=== PATIENT | female | born 1995 | race Caucasian/White ===

== ENCOUNTER → 2023-01-23 09:20 | Outpatient (BNVA) | payer OTHER, SELFPAY | PROVIDERS: Visit Provider Physician Assistant | DX: Z13.89 Encounter for screening for other disorder (principal) | CPT/HCPCS: 29515; 73610; 99203 ==

== ENCOUNTER → 2023-02-01 09:16 | Outpatient (BNVA) | payer OTHER, SELFPAY | PROVIDERS: Visit Provider Physician Assistant | DX: Z13.89 Encounter for screening for other disorder (principal) | CPT/HCPCS: 99214 ==

== ENCOUNTER → 2023-03-13 13:59 | Outpatient (BNVA) | payer OTHER, SELFPAY | PROVIDERS: Visit Provider Physician Assistant | DX: Z13.89 Encounter for screening for other disorder (principal) | CPT/HCPCS: 99213 ==

== ENCOUNTER 2024-02-17 14:52 | Emergency (ER) | payer BC, SELFPAY ==
--- NOTE | 2024-02-17 15:03 | ED.GENADULT ---
HPI - General Adult General Chief complaint: Animal Bite Stated complaint: Bit by cat Time Seen by Provider: 02/17/24 17:42 Source: patient Mode of arrival: ambulatory Limitations: no limitations History of Present Illness HPI narrative: Patient comes to the emergency room complaining of a cat bite versus scratch in the right quintana. Patient states that yesterday she was trying to get to her apartment, there was a feral cat that cornered the patient and attacked her without any provocation. According to the patient, the cat did not look right, looks like the cat was panting, had a bit of foam at the mouth. Patient started running, the cat chased her, patient was able to get inside of her car. The patient states that today she got a phone call from animal control, they were able to catch the cat and they will observe the cat for 48 hours and theneuthanize the animal and test for rabies. Related Data Previous Rx's ?Medication ?Instructions ?Recorded doxycycline hyclate 100 mg capsule 100 mg PO BID #19 caps 02/17/24 metronidazole 500 mg tablet 500 mg PO TID 10 days #30 tabs 02/17/24 Allergies Allergy/AdvReac Type Severity Reaction Status Date / Time amoxicillin Allergy Rash Verified 02/17/24 15:10 Review of Systems Review of Systems: Constitutional : No Weight loss, No Fever, No Chills, No Night Sweats, No Fatigue, No Malaise ENT/Mouth : No Hearing loss, No Ear Pain, No Nasal Congestion, No Sinus Pain, No Hoarseness, No sore throat, No Rhinorrhea, No Swallowing Difficulty Eyes: No Eye Pain, No Swelling, No Redness, No Foreign Body, No Discharge, No Vision Changes Cardiovascular : No Chest Pain, No SOB, No Dyspnea on Exertion, No Orthopnea, No Edema, No Palpitations Respiratory : No Cough, No Sputum, No Wheezing, No Smoke Exposure, No Dyspnea Gastrointestinal : No Nausea, No Vomiting, No Diarrhea, No Constipation, No abdominal Pain, No Hematochezia, No Melena Genitourinary : no irregular bleeding, No Dysuria, No Urinary Frequency, No Hematuria, No Urinary Incontinence, No Urgency, No Flank Pain, No Urinary Flow Changes, No Hesitancy Musculoskeletal : No joint pain, No Myalgias, No Joint Swelling Skin : In the right leg area over the quintana, there is a scratch versus superficial puncture wound Neuro : No Weakness, No Numbness, No Paresthesias, No Loss of Consciousness, No Dizziness, No Headache Psych : No Anxiety/Panic, No Depression, No SI/HI/AH/VH, No Social Issues, Heme/Lymph: No Bruising, No Bleeding,No Lymphadenopathy Endocrine : No Polyuria, No Polydipsia, No Temperature Intolerance PMFSH Social History Social History Advance Directives: No Advance Directives Information Provided: No Do you have a plan to hurt others: No Plan Physical Exam ED Vital Signs: Vital Signs - 24 hr 02/17/24 15:04 Temperature 97.0 F Pulse Rate 99 Respiratory Rate 18 Blood Pressure 146/104 H Pulse Oximetry 99 Oxygen Delivery Method Room Air BMI result Body Mass Index 20.5 Const Other: Appearance: Alert. Oriented X3. No acute distress. Eyes: Pupils equal, round and reactive to light. ENT: Pharynx normal. Neck: Normal inspection. Neck supple. No lymph nodes noted. No crepitus CVS: Normal heart rate and rhythm. Pulses normal. Normal S1 and S2 Respiratory: No respiratory distress. Breath sounds normal. No Wheezing. No rales Abdomen: Soft and nontender. No rigidity. No distention. Skin: Small scratch versus bite superficial, skin was broken, no eschar over it healing no signs of infection Extremities: No lower extremity edema. No Lacerations. No Rash Neuro: Oriented X 3. No motor deficit. No sensory deficit. Moving all extremities. No slurred speech. CN 2 through 12 grossly intact Psych: calm, cooperative, normal affect Course Course Course Narrative: This is an RME: Additional HPI, ROS, PE not included below will be deferred to primary provider. 28 yo f presents with cat bite last night from unknown cat. States wound did draw blood. States cat was acting weird prior to attack. Medical Decision Making Medical Decision Making MDM Narrative: -patient states that she is up-to-date with her tetanus shot. Patient will need antibiotics. Allergic to penicillin, patient was given the 1st dose doxycycline and metronidazole. -although the animal has been caught, the patient will not have an answer for for 48+ hours. I discussed with the patient that the cat's behavior is very concerning for rabies. Strongly recommended to get the immunization and immunoglobulin. Patient agreeable with treatment plan. Differential Diagnosis Differential Diagnoses: The differential diagnosis associated with the presentation includes (Animal scratch, animal bite, puncture wound) Discharge Plan Discharge Clinical Impression: Cat bite Patient Disposition: Home, Self-Care Instructions: Animal Bite (ED), Rabies (ED) Additional Instructions: Please follow-up with your primary care physician tomorrow. If you have any worsening or new symptoms, please return to the emergency room or call 911 Prescriptions: New metronidazole 500 mg tablet 500 mg PO TID 10 Days Qty: 30 0RF doxycycline hyclate 100 mg capsule 100 mg PO BID Qty: 19 0RF Stand Alone Forms: Work/School Release Print Language: Russian
[2024-02-17 15:04] VITALS: BP 146/104; PULSE 99; RESP 18; TEMP 36.1; O2SAT 99; BMI 20.5
[2024-02-17] MEDS: Rabies Vaccine, Human Diploid (Imovax) 1 ML VIAL IM (18:50)
[2024-02-17] MEDS: Rabies Immune Globulin/PF 300 UNIT/ML VIAL 1086 UNIT IM (18:51)
[2024-02-17] MEDS: Doxycycline Monohydrate 100 MG CAPSULE PO (18:52)
[2024-02-17] MEDS: metroNIDAZOLE 500 MG TABLET PO (18:52)
[2024-02-17] MEDS: Diphth,Pertus(ACell),Tet Adult 0.5 ML SYRINGE IM (19:09)
[2024-02-17 19:26] VITALS: BP 141/89; PULSE 96; RESP 18; TEMP 36.2; O2SAT 99
== END 2024-02-17 19:27 | disposition home or self-care (01) ==
PROVIDERS: Emergency Provider Emergency Medicine
DX: S81.851A Open bite, right lower leg, initial encounter (principal); S80.811A Abrasion, right lower leg, initial encounter; W55.01XA Bitten by cat, initial encounter; Y93.9 Activity, unspecified; Y92.9 Unspecified place or not applicable; Y99.8 Other external cause status; Z29.14 Encounter for prophylactic rabies immune globulin; Z20.3 Contact with and (suspected) exposure to rabies; Z23 Encounter for immunization
CPT/HCPCS: 90375; 90471; 90472; 90675; 90715; 96372; 99282; 99284

== ENCOUNTER 2024-03-02 14:00 | Outpatient (RCR) | payer BC, SELFPAY ==
[2024-02-20 13:53] VITALS: BMI 19.7
[2024-02-20 13:54] VITALS: BP 107/72; PULSE 85; RESP 18; TEMP 37.1; O2SAT 100
[2024-02-20] MEDS: Rabies Vaccine, Human Diploid (Imovax) 1 ML VIAL IM (14:02)
[2024-02-24 14:13] VITALS: BP 116/75; PULSE 109; RESP 12; TEMP 37.2; O2SAT 99
[2024-02-24] MEDS: Rabies Vaccine, Human Diploid (Imovax) 1 ML VIAL IM (14:26)
[2024-03-02] MEDS: Rabies Vaccine, Human Diploid (Imovax) 1 ML VIAL IM (14:06)
[2024-03-02 14:17] VITALS: BP 106/80; PULSE 80; RESP 18; TEMP 36.8; O2SAT 100
== END 2024-03-02 15:08 | disposition home or self-care (01) ==
LOC: HO.INF 14:00
PROVIDERS: Visit Provider Emergency Medicine
DX: Z20.3 Contact with and (suspected) exposure to rabies (principal); T14.8XXD Other injury of unspecified body region, subsequent encounter; W64.XXXD Exposure to other animate mechanical forces, subsequent encounter
CPT/HCPCS: 90471; 90675; 96372

== ENCOUNTER 2024-07-20 10:56 | Outpatient (REF) | payer BC, SELFPAY ==
--- NOTE | ~2024-07-20 | US_ITS ---
EXAMINATION: US , LIMITED CLINICAL INFORMATION: Dating. COMPARISON: Pelvic ultrasound 07/28/2023. TECHNIQUE: Transabdominal scanning was performed. FINDINGS: A gestational sac is present in the uterus with a yolk sac and a pole seen. heart rate was 101 bpm. [place]-rump length was 0.44 cm corresponding to a gestational age of 6 weeks 1 day with an CLARENCE of 03/14/2025. Right ovary measured 2.0 x 1.2 x 1.3 cm and appeared normal. The left ovary was not as well seen but appeared to measure 1.4 x 0.9 x 1.2 cm. A small amount of free fluid is present in the cul-de-sac. US/US OB limited IMPRESSION: A live intrauterine gestation is seen with ultrasound dates of 6 weeks 1 day with an CLARENCE of 03/14/2025. Electronically signed by: Spencer Bowen MD 07/29/2024 10:53 PM EDT
== END 2024-07-20 10:57 | disposition home or self-care (01) ==
LOC: HO.US 10:56
PROVIDERS: Visit Provider Advanced Practice Midwife
DX: Z34.90 Encounter for supervision of normal pregnancy, unspecified, unspecified trimester (principal)
CPT/HCPCS: 76815

== ENCOUNTER 2024-08-05 14:18 | Outpatient (REF) | payer BC, SELFPAY ==
--- NOTE | ~2024-08-05 | US_ITS ---
EXAMINATION: ULTRASOUND CLINICAL INFORMATION: Confirm viability LMP: 06/03/2024 Gestational age by LMP: 9 weeks 0 days CLARENCE by LMP: 03/10/2025 COMPARISON: OB ultrasound 07/20/2024 TECHNIQUE: Both transabdominal and endovaginal ultrasound was performed. FINDINGS: A gestational sac is seen along with a yolk sac and pole. heart rate of 169 bpm was noted. The crown-rump length is 1.86 cm corresponding to a gestational age of 8 weeks 3 days with an CLARENCE estimated by ultrasound of 03/14/2025. The right ovary measures 5.1 x 1.6 x 2.8 cm and appears unremarkable. Left ovary measures 4.7 x 2.8 x 3.2 cm and contains a 2.6 cm corpus luteal cyst. A small amount of free fluid is present in the cul-de-sac. US/US OB follow up IMPRESSION: Single live fetus with mean gestational age best estimated at 8 weeks 3 days with an CLARENCE of 03/14/2025 Electronically signed by: Spencer Bowen MD 08/06/2024 10:33 AM EDT
== END 2024-08-05 14:19 | disposition home or self-care (01) ==
LOC: HO.US 14:18
PROVIDERS: Visit Provider Advanced Practice Midwife
DX: Z34.90 Encounter for supervision of normal pregnancy, unspecified, unspecified trimester (principal)
CPT/HCPCS: 76816

== ENCOUNTER 2024-08-10 12:51 | Outpatient (AMB) | payer BC, SELFPAY ==
[2024-08-10 13:01] VITALS: BMI 22.0
--- NOTE | 2024-08-10 13:01 | A.OFFVISPN_ITS ---
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 [place] Required: No Allergies amoxicillin Allergy (Verified 08/10/24 13:02) Rash Medication List - Last Reconciled 08/10/24 by Alyssa Goddard LPN doxylamine succinate (Unisom (doxylamine)) 25 mg PO BEDTIME 30 days pyridoxine (vitamin B6) 25 mg PO TID 30 days Is last menstrual period known: Yes Last menstrual period: 06/03/24 Post menopausal: No Patient : Yes Do you need a note to return to daycare/school/sports/work: No PFSH Medical History (Updated 08/10/24 @ 14:15 by Alyssa Goddard LPN) Animal bite Surgical History (Updated 08/10/24 @ 14:15 by Alyssa Goddard LPN) Ovarian torsion [place] teeth removed Family History (Updated 08/10/24 @ 14:18 by Alyssa Goddard LPN) Mother Hx of malignant neoplasm of female breast Father Hx of deep venous thrombosis Brother Anxiety and depression Sister Anxiety and depression Social History Patient : Yes Female Reproductive History Menstrual Age of Menarche: 15 Duration of menses: 3-5 days Date of last menstrual period: 06/03/24 control method: none Total pregnancies: 3 Full term: 1 Premature: 0 Number of Living Children: 1 Ab induced: 0 Ab spontaneous: 1 Ectopics: 0 Multiple births: 0 History of 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 Date GA/Weeks Outcome Route Wt Inf Gender Labor Gena Anesthesia Location Provider Complicate 10/03/14 39 live - full term vaginal delivery 7 lb 13 oz [facility] 07[facility] 8 spontaneous Education First Trimester Education Checklist Plans/Education - by Trimester Counseled: Yes HIV and other routine tests: discussed Infectious disease exposure: chicken pox immunity discussed, hepatitis risk discussed and tuberculosis exposure discussed Influenza vaccine: discussed Nutrition and weight gain counseling: special diet: discussed Sexual activity: discussed Exercise: discussed Tobacco use: No Tobacco (Ask, Advise, Assess, Assist, and Arrange): discussed Smoking counseling: discussed Alcohol use: No Alcohol (Ask, Advise, Assess, Assist, and Arrange): discussed Use of any medications (including supplements, vitamins, herbs, or OTC drugs): discussed Substance use: No Environmental/home/work hazards: discussed Domestic violence: discussed Travel: discussed Seatbelt use: discussed Toxoplasmosis precautions (cats/raw meat): discussed Childbirth education/discussion: symptoms education/discussion and group B strep education/discussion Risk factors identified by history: discussed Testing education: cystic fibrosis testing education done and group B strep education danger signs: Yes education packet: Child education class information, symptoms, vitamins and iron, diet and weight gain, fish and mercury intake, listeriosis prevention, caffeine use, eating disorder history, exercise and activity, work issues, sexual activity, x-ray exposure, medication use, toxoplasmosis precautions, sauna/hot tub use, dental care and HIV education and counseling Mental health: discussed Anticipated course of care: discussed Indications for ultrasound: discussed Health center information: nature of practice discussed, personnel described, visit schedule reviewed, no show policy reviewed, ultrasounds policy reviewed, coverage 24 hours a day, participation of father in care and office visits and signs of miscarriage reviewed Questionnaire History History Mother's age: 29 Hx Total # of Abortions (Spontaneous & Elective): 1 : 3 Para: 1 Marital status: unmarried, living together Visit CLARENCE Calculator Estimated Delivery Date Method Current WG Current Estimate 03/14/25 Ultrasound #1 9w 2d Other Estimates 03/10/25 LMP (Certain) 9w 6d Expected Delivery Route/Plan vaginal delivery Specific Issues/Plans Anxiety OB Visit Log Initial Weight: 120 lb Date -?-?-?-?-?-?-?-?-?-?-?-?- EGA Weight Gest Week Fundal Ht Present FHR move Efface % Edema BP PrePreg We Weight GTT -?-?-?-?-?-?-?-?-?-?-?-?- Glucose LV Protein Blood Type 08/10/24 -?-?-?-?-?-?-?-?-?-?-?-?- 9w 1d 128 lb 4 oz (+8 lb 4 oz) 1 28 lb 4 oz -?-?-?-?-?-?-?-?-?-?-?-?- Notes Visit Date: 08/10/24 Last Updated by: Alyssa Goddard LPN Cindy is here today for her Nurse intake. LMP 06/03/24 CLARENCE 03/10/25. CLARENCE by U/S on 08/05/24= 03/14/25. Pt is a , Pt was a surrogate, but miscarried at 8 wks. Current partner is FOB #2. Pt is employed at [employer] [place] and also going to school for [employer]. She has been having issues with nausea, but is keeping well hydrated and eating more frequent, smaller amounts of food. Pt denies any use of MJ or illecits. Discussed labs including CF testing and UDS. Discussed NT u/s at [facility] [place] [place] and orders placed. Discussed Panorama testing, and pt will call Ins co to confirm coverage. Pts first was wnl, and had vaginal delivery with Epidural. Pt aware her u/s and delivery will be at [facility] [place] [place]. pt denies any family Hx of diabetes. Informed pt we recommend flu vaccine in and pt accepts. Discussed how to reach MD after hours and to be seen in [facility] for any OB issues. OB PE scheduled for 08/12/24. Initial Infection History & Risk Profile History of STDs: Yes HIV risk evaluation: low risk Hepatitis B risk evaluation: low risk Patient or partner has history of Genital Herpes: No Varicella/chicken pox status: immunized Genetic Screening & Histologist Symptoms since LMP: Nausea, fatigue, breast tenderness. Genetic Screening/Teratology Counseling - Includes patient, baby's father, or anyone in either family with: 1. Patient's age 35 years or older as of estimated date of delivery: No 2. Thalassemia (Estonian, Mosotho, Mediterranean, or Background); MCV less than 80: Yes (Pt has some Estonian background.) 3. Neural Tube Defect (Meningomyelocele, Spina Bifida, or Anencephaly): No 4. Congenital Heart Defect: No 5. Down Syndrome: No 6. Abbe-Sachs (Ashkenazi Bahai, Cajun, Marshallese Montenegrin): No 7. Sherice Disease (Ashkenazi Bahai): No 8. Familial Dysautonomia (Ashkenazi Bahai): No 9. Sickle Cell Disease or Trait (): No 10. Hemophilia or other blood disorders: No 11. Muscular Dystrophy: No 12. Cystic Fibrosis: No 13. Phillips's Chorea: No 14. Intellectual disability/Autism: No 15. Other inherited genetic or chromosomal disorder: No 16. Maternal Metabolic Disorder (EG,TYPE 1 Diabetes, PKU): No 17. Patient or baby's father had a child with defects not listed above: No 18. Recurrent loss or a stillbirth: No 19. Medications (including supplements, vitamins, herbs or otc drugs)/illicit/recreational drugs/alcohol since last menstrual period: Yes 20. Any other: No Infection History 1. Live with someone with TB or exposed to TB: No 2. Rash or viral illness since last menstrual period: No 3. Hepatitis B,C: No 4. History of STD: chlamydia Other (see comments) Source: [employer] Coding Level of Care Code [place] Assessment & Plan Assessment & Plan Orders: Orders Complete Blood Count no Diff 08/10/24. - Encounter for test, result positive Syphilis Screen 08/10/24. - Encounter for test, result positive Hepatitis B Surface Antigen 08/10/24. - Encounter for test, result positive Hepatitis C Antibody 08/10/24. - Encounter for test, result positive Urine Culture 08/10/24. - Encounter for test, result positive HIV Ab/Ag 08/10/24. - Encounter for test, result positive Rubella IgG Antibody 08/10/24. - Encounter for test, result positive CF Carrier Screen 08/10/24. - Encounter for test, result positive Varicella IgG Antibody 08/10/24. - Encounter for test, result positive Drug Screen Urine 08/10/24. - Encounter for test, result positive Screen 08/10/24. - Encounter for test, result positive US OB 1T nuc measure 2 Weeks Z. - Encounter for test, result positive Medications: Discontinued doxycycline hyclate Discontinued Reason: Patient Completed Course 100 mg PO BID 19 caps 0RF metronidazole Discontinued Reason: Patient Completed Course 500 mg PO TID 10 days 30 tabs 0RF
== END 2024-08-10 15:22 | disposition home or self-care (01) ==
PROVIDERS: Visit Provider Advanced Practice Midwife
DX: Z34.90 Encounter for supervision of normal pregnancy, unspecified, unspecified trimester (principal)
CPT/HCPCS: 25942

== ENCOUNTER → 2024-08-10 12:51 | Outpatient (BNVA) | payer BC, SELFPAY | PROVIDERS: Visit Provider Advanced Practice Midwife | DX: O09.299 Supervision of pregnancy with other poor reproductive or obstetric history, unspecified trimester (principal); Z3A.00 Weeks of gestation of pregnancy not specified | CPT/HCPCS: 99212 ==

== ENCOUNTER 2024-08-12 14:02 | Outpatient (AMB) | payer BC, SELFPAY ==
--- NOTE | 2024-08-12 14:04 | MHC.OFFVISPN ---
Intake Vital Signs 08/12/24 14:05 Height 5 ft 4 in Weight 121 lb BMI 20.8 BP 110/70 Intake Visit Reasons: OB PE Intake Note: Last pap 03/2023 lsil EPDS 5 Photographic Equipment Assembler: Photographic Equipment Assembler Present (Manda) Allergies amoxicillin Allergy (Verified 08/12/24 14:05) Rash PFSH Medical History (Updated 08/12/24 @ 15:09 by Ynes Guajardo CNM) Animal bite Surgical History (Updated 08/10/24 @ 14:15 by Anna Goddard LPN) Ovarian torsion [place] teeth removed Family History (Updated 08/10/24 @ 14:18 by Anna Goddard LPN) Mother Hx of malignant neoplasm of female breast Father Hx of deep venous thrombosis Brother Anxiety and depression Sister Anxiety and depression Female Reproductive History Menstrual Age of Menarche: 15 History History 3 Elective abortions 0 Para 1 Spontaneous abortions 1 Hx # Term Pregnancies 1 Ectopic pregnancies 0 Hx # Pregnancies 0 Multiple births 0 Past Pregnancies Del. Date GA/Weeks Outcome Route Wt Inf Gender Labor Gena Anesthesia Location Provider Complicate 10/03/14 39 live - full term vaginal delivery 7 lb 13 oz Male 16 hours epidural [facility] none 07/12/22 8 spontaneous Questionnaire [place] Depression [place] Depression Scale I have been able to laugh and see the funny side of things: As much as I always could I have looked forward with enjoyment to things: As much as I ever did I have blamed myself unnecessarily when things went wrong: Yes, some of the time I have been anxious or worried for no reason: Yes, sometimes I have felt scared of panicky for no very good reason at all: No, not at all Things have been getting on top of me: No, most of the time I have coped quite well I have been so unhappy that I have had difficulty sleeping: No, not at all I have felt sad or miserable: No, not at all I have been so unhappy that I have been crying: No, never The thought of harming myself has occurred to me: Never 5 Visit CLARENCE Calculator Estimated Delivery Date Method Current WG Current Estimate 03/10/25 LMP (Certain) 10w 0d Other Estimates 03/14/25 Ultrasound #1 9w 3d Expected Delivery Route/Plan vaginal delivery Specific Issues/Plans 29Yr. old G 3 P 1 EDC:03/10/25 by LMP Blood type: Problem List: 1. Anxiety-no meds/counseling. EDPS-5 2. History of UTI and yeast infections 3. LGSIL Pap smear obtained 08/12/2024 Testing: Panorama/and or First Tri screen: risk NT scan: 08/26/24 AFP: FAS: Glucose: early 28 wk glucose: CBC 1st Tri: 28 wk. 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 Transportation: own Labor, and Concerns: partner/FOB- Trino Labor support: Trino Plan: Feeding Plans: Breast-feeding, did not breastfeed successfully after initial attempt due to multiple concerns control: OB Visit Log Initial Weight: 120 lb Date <del>?</del> EGA Weight Gest Week Fundal Ht Present FHR move Efface % Edema BP PrePreg We Weight GTT <del>?</del> Glucose LV Protein Blood Type 08/10/24 <del>?</del> 9w 5d 128 lb 4 oz (+8 lb 4 oz) 128 lb 4 oz <del>?</del> 08/12/24 <del>?</del> 10w 0d 121 lb (+16 oz) 9 110/70 121 lb <del>?</del> Notes Visit Date: 08/12/24 Last Updated by: Ynes Guajardo CNM Note author: Ynes Guajardo CNM. 10wk. IOB. Taking PNV, B6 and Unisom for nausea, Doing well with no concerns. Good appetite, attempts to stays well hydrated. Denies any LOF, VB, abd. pain or urinary symptoms. She admits to increased yellow discharge without any symptoms. History of LGSIL 1 year ago, previous care in [place]. She reports regular known menstrual cycles lasting 28-31 days has been tracking them for over 2 years. EDC confirmed to LMP 03/10/2024. Reviewed: Pelvic pain/ VB, when to seek emergent care. Delivery and other services at [facility] if decides to transfer care. Pap, GC chlamydia and BV panel obtained await results for plan of care. Encouraged a healthy well balanced diet, regular walking/exercise in . Hydrate well, 10-12 glasses of water daily. Check with health insurance again speak with the wood room supervisor about concerns for tier coverage w/providers and lab services. Panoramic ordered labs pending based on patient's clarification on coverage on where to have her labs drawn. RTO 4wks. Visit Date: 08/10/24 Last Updated by: Anna Goddard LPN Cindy is here today for her Nurse intake. LMP 06/03/24 CLARENCE 03/10/25. CLARENCE by U/S on 08/05/24= 03/14/25. Pt is a , Pt was a surrogate, but miscarried at 8 wks. Current partner is FOB #2. Pt is employed at [employer] and also going to school for [employer]. She has been having issues with nausea, but is keeping well hydrated and eating more frequent, smaller amounts of food. Pt denies any use of MJ or illecits. Discussed labs including CF testing and UDS. Discussed NT u/s at [facility] and orders placed. Discussed Panorama testing, and pt will call Ins co to confirm coverage. Pts first was wnl, and had vaginal delivery with Epidural. Pt aware her u/s and delivery will be at [facility]. pt denies any family Hx of diabetes. Informed pt we recommend flu vaccine in and pt accepts. Discussed how to reach MD after hours and to be seen in [facility] for any OB issues. OB PE scheduled for 08/12/24. Review of Systems Const All systems reviewed & are unremarkable except as noted in HPI and below Reports as per HPI Eyes Reports no additional complaints ENT Reports no additional complaints Card Reports no additional complaints Resp Reports no additional complaints GI Reports as per HPI and Reports no additional complaints Reports as per HPI Musc Reports no additional complaints Skin/Breast Reports as per HPI Neuro Reports no additional complaints Psych Reports no additional complaints Endo Reports no additional complaints Ahrrison/Lymph Reports no additional complaints Aller/Immun Reports no additional complaints Results AMB Urinalysis, Automated UA Leukoctes 2 Jovani/uL Last Edit by Janet Land [facility] on 08/12/24 14:27 UA Nitrite Negative Last Edit by Janet Land [facility] on 08/12/24 14:27 UA Urobilinogen 0 mg/dL Last Edit by Janet Land [facility] on 08/12/24 14:27 UA Protein 0.5 mg/dL Last Edit by Janet Land [facility] on 08/12/24 14:27 UA pH 7.5 Last Edit by Janet Land [facility] on 08/12/24 14:27 UA Blood 0 [place]/uL Last Edit by Janet Land [facility] on 08/12/24 14:27 UA Specific [place] 1.015 Last Edit by Janet Land [facility] on 08/12/24 14:27 UA Ketone Negative Last Edit by Janet Land [facility] on 08/12/24 14:27 UA Bilirubin 0 mg/dL Last Edit by Janet Land [facility] on 08/12/24 14:27 UA Glucose 0 mg/dL Last Edit by Janet Land [facility] on 08/12/24 14:27 Exam Const Constitutional General: cooperative, healthy appearing, no acute distress, well developed and alert Orientation/consciousness: patient oriented x3 HENMT Head: normal to inspection Eyes General: appearance normal, both eyes and all related structures Neck Neck: normal visual inspection Thyroid: Thyroid normal Chest Chest palpation & inspection: normal inspection of the chest and other (no puckering, dimpling, peau de orange, retraction, discharge, masses) Breast/axilla inspection: normal inspection of the breasts Breast/axilla palpation: normal palpation of the breasts Resp Effort & Inspection: normal respiratory effort Auscultation: clear to auscultation bilaterally Cardio Rate: regular rate Rhythm: regular rhythm Heart sounds: S1 normal heart sound present GI Inspection (GI): normal to inspection Palpation (GI): Soft to palpation General Exam: Yes bladder normal to palpation External Female Exam: normal external appearance and normal appearance of the urethra Urethra: normal appearance of the urethra Speculum exam - vagina: normal appearance of the vagina and normal discharge Speculum Exam - Cervix: normal appearance of the cervix and Other cervical findings present (Bled with Pap) Bimanual exam- vagina & uterus: normal bimanual exam, normal palpation, uterine size normal, bladder normal to palpation, normal palpation, non-tender and enlarged ( heart rate not heard) Bimanual Exam- Adnexa, other: no masses Skin General skin exam: no rashes or lesions noted Rashes: no rashes Neuro Cognition (Neuro): normal cognition Extrem General: normal to inspection Psych Attitude: cooperative Thought process: Normal thought process present Coding Level of Care Code [place] Diagnoses Encounter for supervision of other normal , first trimester Z34.81 Vaginal discharge N89.8 Possible exposure to STD Z20.2 Assessment & Plan Assessment & Plan (1) Encounter for supervision of other normal , first trimester: Code(s): Z34.81 - Encounter for supervision of other normal , first trimester Category: Medical (2) Vaginal discharge: Code(s): N89.8 - Other specified noninflammatory disorders of vagina Category: Medical (3) Possible exposure to STD: Code(s): Z20.2 - Contact with and (suspected) exposure to infections with a predominantly sexual mode of transmission Orders: Orders AMB Urinalysis Automated Today Z34.90 - Encounter for supervision of normal , unspecified, unspecified trimester CT NG by PCR Today Z34.90 - Encounter for supervision of normal , unspecified, unspecified trimester PAP rfx HPV E6/E7 and 16 18/45 Today R87.612 - Low grade squamous intraepithelial lesion on cytologic smear of cervix (LGSIL), Z34.90 - Encounter for supervision of normal , unspecified, unspecified trimester Bacterial Vaginosis Panel Today N89.8 - Other specified noninflammatory disorders of vagina
[2024-08-12 14:05] VITALS: BP 110/70; BMI 20.8
== END 2024-08-12 15:03 | disposition home or self-care (01) ==
PROVIDERS: Visit Provider Advanced Practice Midwife
DX: Z34.81 Encounter for supervision of other normal pregnancy, first trimester (principal); N89.8 Other specified noninflammatory disorders of vagina; Z20.2 Contact with and (suspected) exposure to infections with a predominantly sexual mode of transmission; Z34.90 Encounter for supervision of normal pregnancy, unspecified, unspecified trimester
CPT/HCPCS: 25942; S3005

== ENCOUNTER 2024-08-12 14:02 | Outpatient (REF) | payer BC, SELFPAY ==
[2024-08-19 11:39] LABS: HPV mRNA E6/E7 Not Detected (Not Detected)
[2024-08-20 10:33] LABS: HPV 16,18/45 See PAP report
== END 2024-08-12 14:03 | disposition home or self-care (01) ==
LOC: HO.LNP 14:02
PROVIDERS: Visit Provider Advanced Practice Midwife
DX: O26.891 Other specified pregnancy related conditions, first trimester (principal); N89.8 Other specified noninflammatory disorders of vagina; Z20.2 Contact with and (suspected) exposure to infections with a predominantly sexual mode of transmission; Z3A.10 10 weeks gestation of pregnancy
CPT/HCPCS: 81003; 87624; 87625; 88175; 99212

== ENCOUNTER 2024-08-12 14:50 | Outpatient (REF) | payer BC, SELFPAY ==
[2024-08-12 18:32] LABS: CT PCR NOT DETECTED (Not Detect.); NG PCR NOT DETECTED (Not Detect.)
[2024-08-13 11:24] LABS: Bacterial Vaginosis PCR POSITIVE (Negative); Candida Group PCR NOT DETECTED (Not Detect); Candida glab krusei PCR NOT DETECTED (Not Detect); Trichomonas vaginalis PCR NOT DETECTED (Not Detect)
== END 2024-08-12 14:51 | disposition home or self-care (01) ==
LOC: HO.LAB 14:50
PROVIDERS: Visit Provider Advanced Practice Midwife
DX: Z34.90 Encounter for supervision of normal pregnancy, unspecified, unspecified trimester (principal); N89.8 Other specified noninflammatory disorders of vagina; R87.612 Low grade squamous intraepithelial lesion on cytologic smear of cervix (LGSIL)
CPT/HCPCS: 0352U; 87491; 87591

== ENCOUNTER 2024-09-11 13:55 | Outpatient (AMB) | payer BC, SELFPAY ==
--- NOTE | 2024-09-11 14:10 | MHC.OFFVIS ---
Vital Signs 09/11/24 14:16 Height 5 ft 4 in Weight 126 lb 8 oz BMI 21.7 BP 108/72 Blood Pressure Location Lt brachial Position Sitting Intake Visit Reasons: NATHALY Allergies amoxicillin Allergy (Verified 09/11/24 14:18) Rash PFSH Medical History (Updated 08/26/24 @ 15:25 by Ynes Guajardo CNM) LGSIL on Pap smear of cervix Animal bite Surgical History (Updated 08/10/24 @ 14:15 by Anna Goddard LPN) Ovarian torsion [place] teeth removed Family History (Updated 08/10/24 @ 14:18 by Anna Goddard LPN) Mother Hx of malignant neoplasm of female breast Father Hx of deep venous thrombosis Brother Anxiety and depression Sister Anxiety and depression Female Reproductive History Menstrual Age of Menarche: 15 Physical Exam Vital Signs: Last Vital Signs BP 108/72 09/11/24 14:16 BMI result Body Mass Index 21.7 Coding
[2024-09-11 14:16] VITALS: BP 108/72; BMI 21.7
--- NOTE | 2024-09-11 14:19 | A.OFFVISPN_ITS ---
Intake Vital Signs 09/11/24 14:16 Height 5 ft 4 in Weight 126 lb 8 oz BMI 21.7 BP 108/72 Blood Pressure Location Lt brachial Position Sitting Intake Visit Reasons: NATHALY Allergies amoxicillin Allergy (Verified 09/11/24 14:18) Rash [facility] Medical History (Updated 09/11/24 @ 14:27 by Ynes Guajardo CNM) Supervision of normal in second trimester LGSIL on Pap smear of cervix Animal bite Surgical History (Updated 08/10/24 @ 14:15 by Anna Goddard LPN) Ovarian torsion [place] teeth removed Family History (Updated 08/10/24 @ 14:18 by Anna Goddard LPN) Mother Hx of malignant neoplasm of female breast Father Hx of deep venous thrombosis Brother Anxiety and depression Sister Anxiety and depression Female Reproductive History Menstrual Age of Menarche: 15 History History 3 Elective abortions 0 Para 1 Spontaneous abortions 1 Hx # Term Pregnancies 1 Ectopic pregnancies 0 Hx # Pregnancies 0 Multiple births 0 Past Pregnancies Del. Date GA/Weeks Outcome Route Wt Inf Gender Labor Gena Anesthesia Location Provider Complicate 10/03/14 39 live - full term vaginal delivery 7 lb 13 oz Male 16 hours epidural [facility] none 07/12/22 8 spontaneous Visit CLARENCE Calculator Estimated Delivery Date Method Current WG Current Estimate 03/10/25 LMP (Certain) 14w 2d Other Estimates 03/14/25 Ultrasound #1 13w 5d Expected Delivery Route/Plan vaginal delivery Specific Issues/Plans 29Yr. old G 3 P 1 EDC:03/10/25 by LMP Blood type: Problem List: 1. Anxiety-no meds/counseling. EDPS-5 2. History of UTI and yeast infections 3. LGSIL Pap smear obtained 08/12/2024 Testing: Panorama/and or First Tri screen: risk NT scan: 08/26/24 AFP: FAS: Glucose: early 28 wk glucose: CBC 1st Tri: 28 wk. 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 Transportation: own Labor, and Concerns: partner/FOB- Trino Labor support: Trino Plan: Infant Feeding Plans: Breast-feeding, did not breastfeed successfully after initial attempt due to multiple concerns control: OB Visit Log Initial Weight: 120 lb Date -?-?-?-?-?-?-?-?-?-?-?-?- EGA Weight Gest Week Fundal Ht Present FHR move Efface % Edema BP PrePreg We Weight GTT -?-?-?-?-?-?-?-?-?-?-?-?- Glucose LV Protein Blood Type 08/10/24 -?-?-?-?-?-?-?-?-?-?-?-?- 9w 5d 128 lb 4 oz (+8 lb 4 oz) 1 28 lb 4 oz -?-?-?-?-?-?-?-?-?-?-?-?- 08/12/24 -?-?-?-?-?-?-?-?-?-?-?-?- 10w 0d 121 lb (+16 oz) 9 110/70 121 lb -?-?-?-?-?-?-?-?-?-?-?-?- 09/11/24 -?-?-?-?-?-?-?-?-?-?-?-?- 14w 2d 126 lb 8 oz (+6 lb 8 oz) 16 150 108/72 126 lb 8 oz -?-?-?-?-?-?-?-?-?-?-?-?- Notes Visit Date: 09/11/24 Last Updated by: Ynes Guajardo CNM Note author: Ynes Guajardo CNM. 14.2wk. NATHALY. Taking PNV, Doing well with concerns: Has daily nausea and vomiting that improves throughout the day able to eat later in the evening. 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 Previous note to excuse work in that area was given for 2 weeks. Stays well hydrated. Denies any LOF, VB, abd. pain or urinary symptoms. Reports 2 episodes of right-sided ligament pain resolved with rest and heat. Reviewed: PTL s/s-LOF/Ctx's/VB, when to seek emergent care. discomforts, self help measures. Note for 30 days to excuse from IV room until improvement. Hydrate well, 10-12 glasses of water daily. FAS ordered for 5 weeks. RTO 4wks. Visit Date: 08/12/24 Last Updated by: Ynes Guajardo CNM Note author: Ynes Guajardo CNM. 10wk. IOB. Taking PNV, B6 and Unisom for nausea, Doing well with no concerns. Good appetite, attempts to stays well hydrated. Denies any LOF, VB, abd. pain or urinary symptoms. She admits to increased yellow discharge without any symptoms. History of LGSIL 1 year ago, previous care in [place]. She reports regular known menstrual cycles lasting 28-31 days has been tracking them for over 2 years. EDC confirmed to LMP 03/10/2024. Reviewed: Pelvic pain/ VB, when to seek emergent care. Delivery and other services at [facility] if decides to transfer care. Pap, GC chlamydia and BV panel obtained await results for plan of care. Encouraged a healthy well balanced diet, regular walking/exercise in . Hydrate well, 10-12 glasses of water daily. Check with health insurance again speak with the route supervisor about concerns for tier coverage w/providers and lab services. Panoramic ordered labs pending based on patient's clarification on coverage on where to have her labs drawn. RTO 4wks. Visit Date: 08/10/24 Last Updated by: TYE Oconnor is here today for her Nurse intake. LMP 06/03/24 CLARENCE 03/10/25. CLARENCE by U/S on 08/05/24= 03/14/25. Pt is a , Pt was a surrogate, but miscarried at 8 wks. Current partner is FOB #2. Pt is employed at [employer] and also going to school for [employer]. She has been having issues with nausea, but is keeping well hydrated and eating more frequent, smaller amounts of food. Pt denies any use of MJ or illecits. Discussed labs including CF testing and UDS. Discussed [place] u[place] [facility] and orders placed. Discussed Panorama testing, and pt will call Ins co to confirm coverage. Pts first was wnl, and had vaginal delivery with Epidural. Pt aware her u/s and delivery will be at [facility]. pt denies any family Hx of diabetes. Informed pt we recommend flu vaccine in and pt accepts. Discussed how to reach MD after hours and to be seen in [facility] for any OB issues. OB PE scheduled for 08/12/24. Results AMB Urinalysis, Automated UA Leukoctes 0 Jovani/uL Last Edit by Norah Tegaue CMA on 09/11/24 14:36 UA Nitrite Negative Last Edit by Norah Teague, DONALD on 09/11/24 14:36 UA Urobilinogen 3.5 mg/dL Last Edit by Norah Teague, DONALD on 09/11/24 14:36 UA Protein 0 mg/dL Last Edit by Norah Teague, DONALD on 09/11/24 14:36 UA pH 6.0 Last Edit by Norah Teague, DONALD on 09/11/24 14:36 UA Blood 0 [place]/uL Last Edit by Norah Teague, DONALD on 09/11/24 14:36 UA Specific [place] 1.010 Last Edit by Norah Teague CMA on 09/11/24 14:36 UA Ketone Negative Last Edit by Norah Teague CMA on 09/11/24 14:36 UA Bilirubin 0 mg/dL Last Edit by Norah Teague CMA on 09/11/24 14:36 UA Glucose 0 mg/dL Last Edit by Norah Teague CMA on 09/11/24 14:36 Results Reviewed Results Reviewed: Laboratory Last Values Urine pH (Auto) 6.0 09/11/24 14:35 Specific [place] (Auto) 1.010 09/11/24 14:35 Urine Protein (Auto) 0 mg/dL 09/11/24 14:35 Glucose (UA)(Auto) 0 mg/dL 09/11/24 14:35 Urine Ketones (Auto) Negative 09/11/24 14:35 Urine Blood (Auto) 0 [place]/uL 09/11/24 14:35 Urine Nitrite (Auto) Negative 09/11/24 14:35 Urine Bilirubin (Auto) 0 mg/dL 09/11/24 14:35 Urine Urobilinogen (Auto) 3.5 mg/dL 09/11/24 14:35 Leukocyte Esterase (Auto) 0 Jovani/uL 09/11/24 14:35 Coding Level of Care Code [place] Assessment & Plan Assessment & Plan Orders: Orders AMB Urinalysis Automated Today Z34.81 - Encounter for supervision of other normal , first trimester US OB /maternal detail 10/16/24 Z34.92 - Encounter for supervision of normal , unspecified, second trimester
== END 2024-09-11 14:42 | disposition home or self-care (01) ==
LOC: HO.HWS 13:55
PROVIDERS: Visit Provider Advanced Practice Midwife
DX: Z34.81 Encounter for supervision of other normal pregnancy, first trimester (principal)
CPT/HCPCS: 25942

== ENCOUNTER → 2024-09-11 13:55 | Outpatient (BNVA) | payer BC, SELFPAY | PROVIDERS: Visit Provider Advanced Practice Midwife | DX: O21.9 Vomiting of pregnancy, unspecified (principal); O99.342 Other mental disorders complicating pregnancy, second trimester; F41.9 Anxiety disorder, unspecified; Z3A.14 14 weeks gestation of pregnancy | CPT/HCPCS: 81003; 99212 ==

== ENCOUNTER 2024-10-08 15:17 | Outpatient (AMB) | payer BC, SELFPAY ==
--- NOTE | 2024-10-08 15:20 | A.OFFVISPN_ITS ---
Intake Vital Signs 10/08/24 15:21 Height 5 ft 4 in Weight 126 lb BMI 21.6 BP 110/74 Intake Visit Reasons: franco Shoer: Shoer Present (Manda) Allergies amoxicillin Allergy (Verified 10/08/24 15:21) Rash Patient : Yes PFSH Medical History (Updated 10/08/24 @ 15:33 by Ynes Guajardo CNM) Supervision of normal in second trimester LGSIL on Pap smear of cervix Animal bite Surgical History (Updated 08/10/24 @ 14:15 by Anna Goddard LPN) Ovarian torsion [place] teeth removed Family History (Updated 08/10/24 @ 14:18 by Anna Goddard LPN) Mother Hx of malignant neoplasm of female breast Father Hx of deep venous thrombosis Brother Anxiety and depression Sister Anxiety and depression Female Reproductive History Menstrual Age of Menarche: 15 History History 3 Elective abortions 0 Para 1 Spontaneous abortions 1 Hx # Term Pregnancies 1 Ectopic pregnancies 0 Hx # Pregnancies 0 Multiple births 0 Past Pregnancies Del. Date GA/Weeks Outcome Route Wt Inf Gender Labor Gena Anesthesia Location Provider Complicate 10/03/14 39 live - full term vaginal delivery 7 lb 13 oz Male 16 hours epidural [facility] none 07/12/22 8 spontaneous Visit [facility]ENCE Calculator Estimated Delivery Date Method Current WG Current Estimate 03/10/25 LMP (Certain) 18w 1d Other Estimates 03/14/25 Ultrasound #1 17w 4d Expected Delivery Route/Plan vaginal delivery Specific Issues/Plans 29Yr. old G 3 P 1 EDC:03/10/25 by LMP Blood type: Problem List: 1. Anxiety-no meds/counseling. EDPS-5 2. History of UTI and yeast infections 3. LGSIL (age 19), followed by negative results. Pap 08/12/2024=ASCUS, HPV negative, repeat pp. Testing: Panorama/and or First Tri screen: risk NT scan: 08/26/24 AFP: FAS: Glucose: early 28 wk glucose: CBC 1st Tri: 28 wk. 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 Transportation: own Labor, and Concerns: partner/FOB- Trino Labor support: [place] Plan: Feeding Plans: Breast-feeding, did not breastfeed successfully after initial attempt due to multiple concerns control: OB Visit Log Initial Weight: 120 lb Date -?-?-?-?-?-?-?-?-?-?-?-?- EGA Weight Gest Week Fundal Ht Present FHR move Efface % Edema BP PrePreg We Weight GTT -?-?-?-?-?-?-?-?-?-?-?-?- Glucose LV Protein Blood Type 08/10/24 -?-?-?-?-?-?-?-?-?-?-?-?- 9w 5d 128 lb 4 oz (+8 lb 4 oz) 1 28 lb 4 oz -?-?-?-?-?-?-?-?-?-?-?-?- 08/12/24 -?-?-?-?-?-?-?-?-?-?-?-?- 10w 0d 121 lb (+16 oz) 9 110/70 121 lb -?-?-?-?-?-?-?-?-?-?-?-?- 09/11/24 -?-?-?-?-?-?-?-?-?-?-?-?- 14w 2d 126 lb 8 oz (+6 lb 8 oz) 16 150 108/72 126 lb 8 oz -?-?-?-?-?-?-?-?-?-?-?-?- 10/08/24 -?-?-?-?-?-?-?-?-?-?-?-?- 18w 1d 126 lb (+6 lb) 19 150 110/74 126 lb -?-?-?-?-?-?-?-?-?--?-?-?- Notes Visit Date: 10/08/24 Last Updated by: Ynes Guajardo CNM Note author: Ynes Guajardo CNM. 18.1wk. FRANCO. Taking PNV, Doing well with no concerns. Good appetite, stays well hydrated. Reports she still has nausea throughout the day but no longer is vomiting. Taking her B6 vitamins. Has felt movements here in there. FAS is scheduled for October 22. Denies any LOF, VB, abd. pain or urinary symptoms. Has not completed her labs. Reviewed: Pap smear results-ascus negative HPV, sign for [facility] Pap/colposcopy results. She had normal Paps following the initial LGSIL which was approximately 10 years ago. PTL s/s-LOF/Ctx's/VB, when to seek emergent care. discomforts, self help measures. Encouraged a healthy well balanced diet, regular walking/exercise in . Hydrate well, 10-12 glasses of water daily. Reminded to register for her labs and have them done tomorrow patient agrees to the plan of care. RTO 4wks. Visit Date: 09/11/24 Last Updated by: Ynes Guajardo CNM Note author: Ynes Guajardo CNM. 14.2wk. FRANCO. Taking PNV, Doing well with concerns: Has daily nausea and vomiting that improves throughout the day able to eat later in the evening. 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 Previous note to excuse work in that area was given for 2 weeks. Stays well hydrated. Denies any LOF, VB, abd. pain or urinary symptoms. Reports 2 episodes of right-sided ligament pain resolved with rest and heat. Reviewed: PTL s/s-LOF/Ctx's/VB, when to seek emergent care. discomforts, self help measures. Note for 30 days to excuse from IV room until improvement. Hydrate well, 10-12 glasses of water daily. FAS ordered for 5 weeks. RTO 4wks. Visit Date: 08/12/24 Last Updated by: Ynes Guajrado CNM Note author: Ynes Guajardo CNM. 10wk. IOB. Taking PNV, B6 and Unisom for nausea, Doing well with no concerns. Good appetite, attempts to stays well hydrated. Denies any LOF, VB, abd. pain or urinary symptoms. She admits to increased yellow discharge without any symptoms. History of LGSIL 1 year ago, previous care in [place]. She reports regular known menstrual cycles lasting 28-31 days has been tracking them for over 2 years. EDC confirmed to LMP 03/10/2024. Reviewed: Pelvic pain/ VB, when to seek emergent care. Delivery and other services at [facility] if decides to transfer care. Pap, GC chlamydia and BV panel obtained await results for plan of care. Encouraged a healthy well balanced diet, regular walking/exercise in . Hydrate well, 10-12 glasses of water daily. Check with health insurance again speak with the supervisor type disk quality control about concerns for tier coverage w/providers and lab services. Panoramic ordered labs pending based on patient's clarification on coverage on where to have her labs drawn. RTO 4wks. Visit Date: 08/10/24 Last Updated by: TYE Oconnor is here today for her Nurse intake. LMP 06/03/24 CL[facility]ENCE 03/10/25. CLARENCE by U/S on 08/05/24= 03/14/25. Pt is a , Pt was a surrogate, but miscarried at 8 wks. Current partner is FOB #2. Pt is employed at [employer] and also going to school for [employer]. She has been having issues with nausea, but is keeping well hydrated and eating more frequent, smaller amounts of food. Pt denies any use of MJ or illecits. Discussed labs including CF testing and UDS. Discussed NT u/s at [facility] and orders placed. Discussed Panorama testing, and pt will call Ins co to confirm coverage. Pts first was wnl, and had vaginal delivery with Epidural. Pt aware her u/s and delivery will be at [facility]. pt denies any family Hx of diabetes. Informed pt we recommend flu vaccine in and pt accepts. Discussed how to reach MD after hours and to be seen in [facility] for any OB issues. OB PE scheduled for 08/12/24. Results AMB Urinalysis, Automated UA Leukoctes 0 Jovani/uL Last Edit by ELIUD Simeon on 10/08/24 15:27 UA Nitrite Negative Last Edit by ELIUD Simeon on 10/08/24 15:27 UA Urobilinogen 0 mg/dL Last Edit by ELIUD Simeon on 10/08/24 15:2 7 UA Protein 0 mg/dL Last Edit by Janet Land Lizet on 10/08/24 15:27 UA pH 7.5 Last Edit by Janet Land Lizet on 10/08/24 15:27 UA Blood 0 Clayton/uL Last Edit by Janet Land Lizet on 10/08/24 15:27 UA Specific [place] 1.010 Last Edit by Janet Land Lizet on 10/08/24 15:27 UA Ketone Negative Last Edit by Janet Land Lizte on 10/08/24 15:27 UA Bilirubin 0 mg/dL Last Edit by Janet Land Lizet on 10/08/24 15:27 UA Glucose 0 mg/dL Last Edit by Janet Land [facility] on 10/08/24 15:27 Coding Level of Care Code [place] Assessment & Plan Assessment & Plan Orders: Orders AMB Urinalysis Automated Today Z34.92 - Encounter for supervision of normal , unspecified, second trimester
--- OUTSIDE RECORDS SUMMARY | 2024-10-08 15:20 | XMS_ITS ---
Author Name [facility] Organization Unknown Results Test Name/Text Value Interpretation Date Range Source LAB AP CYTOLOGY SPECIMEN PROCESSING Thin Prep pap with manual screen/rescreen or review Normal [facility] LAB AP SUBSTATION OPERATOR AUTOMATIC SPECIMEN ADEQUACY Satisfactory for evaluation, endocervical/transform ation zone component present Normal [facility] LAB AP LMP Not provided Normal [facility] LAB AP CLINICAL INFORMATION Routine screening Normal [facility] History of Medication Use Medication Directions Dispensed Refills Start Date End Date Stat us benzonatate (TESSALON) 200 mg capsule Take 1 capsule (200 mg total) by mouth 3 (three) times a day as needed for cough. 07/13/2023 active Doxycycline Hyclate (DOXY-CAPS PO) Take by mouth. 01/10/2023 aborte d albuterol HFA 90 mcg/actuation inhaler Inhale 2 puffs every 4 (four) hours as needed for wheezing or shortness of breath. 07/13/2023 active carBAMazepine (TEGretol XR) 100 MG 12 hr tablet Take 3 tablets by mouth twice a day 01/10/2023 aborted ondansetron 4 mg disintegrating tablet TAKE 2 TABLET THREE TIMES DAILY NEEDED FORNAUSEA AND VOMITING PLACE ON TONGUE TO DISSOLVE TAKE 2 TABLET THREE TIMES DAILY NEEDED FORNAUSEA AND VOMITING PLACE ON TONGUE TO DISSOLVE 04/14/2022 completed None recorded. (No additional sig information) 04/14/2022 completed ibuprofen 600 mg tablet Take 600 mg by mouth 3 times daily as needed. 08/07/2023 aborted acetaminophen (TYLENOL) 500 MG tablet Take 2 tablets (1,000 mg total) by mouth 3 times daily (every 8 hours) as needed for mild pain (pain). 04/25/2023 active ondansetron (ZOFRAN-ODT) 4 MG disintegrating tablet TAKE 2 TABLET BY MOUTH THREE TIMES DAILY NEEDED FOR NAUSEA OR VOMITING, PLACE TABLET ON TONGUE TO DISSOLVE 01/10/2023 active polyethylene glycol (miraLAx) 17 g packet Take 1 packet (17 g total) by mouth daily. 04/25/2023 active promethazine-DM (PROMETHAZINE-DM) 6.25-15 mg/5 mL syrup Take 5 mL by mouth 4 (four) times a day as needed for cough. 07/13/2023 active gabapentin (NEURONTIN) 300 MG capsule Take 1 capsule (300 mg total) by mouth 3 (three) times a day. 01/10/2023 aborted ondansetron ODT (ZOFRAN-ODT) 4 mg disintegrating tablet Take 1 tablet (4 mg total) by mouth every 8 (eight) hours as needed for nausea or vomiting for up to 7 days. 08/07/2023 active acetaminophen (TYLENOL) 500 MG tablet Take 2 tablets (1,000 mg total) by mouth 3 times daily (every 8 hours) as needed for mild pain (pain). 04/25/2023 active Lo Loestrin Fe 1 mg-10 mcg (24)/10 mcg (2) tablet Take 1 tablet every day by oral route. Take 1 tablet every day by oral route. 04/14/2022 completed metoPROLOL TARTRATE (LOPRESSOR) 25 MG tablet 1 tablet (25 mg total) daily. 01/10/2023 aborted No known medications No known medications 08/29/2022 active hydrOXYzine (ATARAX) 25 mg tablet Take 1 tablet (25 mg total) by mouth 3 (three) times a day as needed for anxiety. 10/31/2023 active clonazePAM (KlonoPIN) 0.5 MG tablet as needed. 01/10/2023 aborted propranolol (INDERAL) 10 MG tablet 01/10/2023 aborted propranoloL (INDERAL) 10 mg tablet Take 1 tablet (10 mg total) by mouth in the morning and 1 tablet (10 mg total) before bedtime. 11/20/2022 active b complex vitamins capsule Take 1 capsule by mouth daily. 01/10/2023 active oxyCODONE (ROXICODONE) 5 MG immediate release tablet Take 0.5-1 tablets (2.5-5 mg total) by mouth every 4 (four) hours as needed for moderate pain. Max Daily Amount: 30 mg 01/10/2023 active norgestimate-ethinyl estradioL (ORTHO TRI-CYCLEN LO) 0.18/0.215/0.25 mg-25 mcg per tablet Take 1 tablet by mouth in the morning. 08/07/2023 aborted ibuprofen (MOTRIN) 600 MG tablet Take 1 tablet (600 mg total) by mouth 3 (three) times a day as needed for mild pain (pain). 04/25/2023 active SUMAtriptan (IMITREX) 25 MG tablet sumatriptan 25 mg tablet PRN 01/10/2023 aborted propranolol (INDERAL) 10 MG tablet Take 1 tablet (10 mg total) by mouth 3 (three) times a day. 01/16/2023 active sertraline (ZOLOFT) 25 mg tablet Take 1 tablet (25 mg total) by mouth in the morning. 10/31/2023 active Problems Problem Status Onset Date Problem Type Date of Resoluti on Source Panic disorder active 2021-06-[address] Ovarian torsion active 2023-07-[address] [facility] Palpitation active 2022-11-19 ProblemAct [facility] Tachycardia active 2022-11-19 ProblemAct [facility] Anxiety active 2022-11-19 ProblemAct [facility] Migraine active 2020-09-12 ProblemAct [facility] Family history of breast cancer active 2022-09-17 ProblemAct [facility] MDD (major depressive disorder), recurrent episode, mild active 2023-10-29 ProblemAct [facility] Right elbow pain active 2022-09-17 ProblemAct [facility] Generalized anxiety disorder active 2004-11-10 ProblemAct [facility] Anxiety active 2014-04-21 ProblemAct [facility] POTS (postural orthostatic tachycardia syndrome) active 2021-05-08 ProblemAct [facility] Anxiety active 2014-04-21 ProblemAct [facility] Panic disorder active ProblemAct [facility] Anxiety disorder active ProblemAct CT [facility] Kidney scarring active 2012-10-09 ProblemAct [facility] Dysphagia active 2018-09-18 ProblemAct [facility] Epigastric pain active 2018-09-18 ProblemAct [facility] Postural lightheadedness active 2018-09-18 ProblemAct [facility] Lumbosacral pain active 2019-08-07 ProblemAct [facility] Migraine active 2020-09-12 ProblemAct [facility] Gastroesophageal reflux disease active 2017-05-03 ProblemAct [facility] UTI (urinary tract infection) active 2012-10-09 ProblemAct [facility] Immunizations Vaccine Date Source Lot Number Status HPV, Unspecified 10/21/2008 [facility] complete d Covid-19 mRNA Vaccine - Mode rna 0.25 mL Booster 09/29/2021 [facility] [id number] completed Meningococcal MCV4P 08/29/2010 [facility] compl eted HPV, Quadrivalent 02/26/2011 [facility] complet ed Covid-19 mRNA Primary Series Vaccine - Moderna 0.5 mL Full Dose 11/25/2020 [facility] [id number] completed Covid-19 mRNA Primary Series Vaccine - Moderna 0.5 mL Full Dose 10/26/2020 [facility] [id number] completed Influenza, Quadrivalent (FLU ARIX, AFLURIA, FLULAVAL, FLUZONE) Preservative Free IM 06/26/2019 [facility] completed DTaP 1995 [facility] completed Influenza (IM) Preservative Free 08/29/2010 [facility] completed Hib (PRP-T) 1995 [facility] completed Tdap 08/18/2014 [facility] [id number] completed MMR 09/16/1996 [facility] completed Meningococcal MCV4P 06/02/2013 [facility] compl eted Varicella 12/13/1997 [facility] completed Influenza, Quadrivalent 09/17/2022 [facility] [id number] c ompleted HPV, Quadrivalent 10/31/2010 [facility] complet ed IPV 1995 [facility] completed Influenza, Unspecified 09/06/2011 [facility] co mpleted Hib (PRP-T) 1995 [facility] completed Influenza (IM) Preservative Free 09/06/2011 [facility] completed HPV, Unspecified 06/21/2009 [facility] complete d Influenza, Unspecified 08/29/2010 [facility] co mpleted Influenza, Quadrivalent 06/26/2019 [facility] c ompleted Influenza, Quadrivalent (FLU ARIX, AFLURIA, FLULAVAL, FLUZONE) Preservative Free IM 07/01/2019 [facility] UPMCT [id number] completed HPV, Quadrivalent 08/29/2010 [facility] complet ed Tdap 05/16/2007 [facility] completed Hep B, Adolescent or Pediatric 10/21/2004 [facility] completed DTaP 12/09/1996 [facility] completed DTaP 1995 [facility] completed HPV, Unspecified 02/18/2009 [facility] complete d Hep B, Adolescent or Pediatric 1995 [facility] completed Hep B, Adolescent or Pediatric 03/02/1996 [facility] completed IPV 1995 [facility] completed Influenza, Quadrivalent 07/01/2019 [facility] [id number] c ompleted Hib (PRP-T) 12/09/1996 [facility] completed Varicella 05/16/2007 [facility] completed MMR 06/12/2000 [facility] completed IPV 06/12/2000 [facility] completed Hib (PRP-T) 1995 [facility] completed IPV 1995 [facility] completed DTaP 1995 [facility] completed Influenza, Quadrivalent 08/15/2020 [facility] [id number] c ompleted Hep B, Adolescent or Pediatric 1995 [facility] completed Influenza, Unspecified 07/22/2020 [facility] co mpleted DTaP 06/12/2000 [facility] completed
[2024-10-08 15:21] VITALS: BP 110/74; BMI 21.6
== END 2024-10-08 15:46 | disposition home or self-care (01) ==
PROVIDERS: Visit Provider Advanced Practice Midwife
DX: Z34.92 Encounter for supervision of normal pregnancy, unspecified, second trimester (principal)
CPT/HCPCS: 25942

== ENCOUNTER → 2024-10-08 15:17 | Outpatient (BNVA) | payer BC, SELFPAY | PROVIDERS: Visit Provider Advanced Practice Midwife | DX: O26.892 Other specified pregnancy related conditions, second trimester (principal); R11.0 Nausea; Z3A.18 18 weeks gestation of pregnancy | CPT/HCPCS: 81003; 99212 ==

== ENCOUNTER 2024-11-03 09:51 | Outpatient (AMB) | payer OTHER, SELFPAY ==
[2024-11-03 09:52] VITALS: BP 94/60; PULSE 81; BMI 23.5
--- NOTE | 2024-11-03 09:52 | MHC.OFFVIS ---
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 She is 22 weeks . 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 She states that she was previously diagnosed with POTS syndrome couple years ago. She saw a specialist in [facility] and was prescribed Inderal. She took it for some time but then stopped as she felt better. She states that she has had symptoms of feeling dizzy/heart racing for many years prior to the diagnosis. She has had some good times and bad times. She was in fact doing okay but in the recent past, again noticing the same. When she is getting up from seated position, she can get dizzy. When she is working in the pharmacy in our hospital, she can feel her heart racing. She has been keeping herself hydrated but still feels the same. He is also trying compression stockings. No longer taking Inderal. No other known cardiac issues. [facility] Medical History (Updated 11/03/24 @ 11:50 by Marty Yu MD) Dizziness Trigeminal neuralgia POTS (postural orthostatic tachycardia syndrome) Supervision of normal in second trimester LGSIL on Pap smear of cervix Animal bite Surgical History Ovarian torsion [place] teeth removed Family History Mother Hx of malignant neoplasm of female breast Father Hx of deep venous thrombosis Brother Anxiety and depression Sister Anxiety and depression Social History (Updated 11/03/24 @ 09:55 by Maricruz Lemus CMA) Alcohol intake: former Patient Tobacco Use Status: Never used Tobacco Female Reproductive History Menstrual Age of Menarche: 15 Review of Systems Const Denies chills, Denies daytime sleepiness, Denies fatigue, Denies fever(s), Denies poor appetite, Denies snoring, Denies stops breathing during sleep, Denies weakness, Denies weight gain and Denies weight loss Eyes Denies loss of vision ENT Denies dizziness and Denies hearing loss Card Denies chest pain, Denies irregular heart rhythm, Denies claudication, Denies leg edema, Denies lightheadedness, Reports palpitations, Reports dyspnea on exertion and Denies orthopnea Resp Denies cough, Denies excessive phlegm production, Reports dyspnea on exertion, Denies snoring and Denies wheezing GI Denies abdominal pain, Denies hematochezia, Denies change in bowel habits, Denies nausea and Denies vomiting Denies urinary frequency and Denies dysuria Musc Denies arthralgias, Denies muscle weakness, Denies numbness and Denies other Skin/Breast Denies nail changes and Denies rash Neuro Denies Abnormal speech present, Denies dizziness, Denies loss of vision, Denies memory loss, Denies numbness and Denies weakness Psych Denies depression and Denies memory loss Endo Denies fatigue and Reports palpitations Harrison/Lymph Denies easy bruising Aller/Immun Denies wheezing Physical Exam Vital Signs: Last Vital Signs Pulse 81 11/03/24 09:52 BP 94/60 11/03/24 09:52 BMI result Body Mass Index 23.5 Const General: comfortable and no acute distress Orientation/consciousness: patient oriented x3 HEENT Other: Unremarkable Head: Yes normal to inspection Neck Neck: Yes normal visual inspection Chest Chest palpation & inspection: normal inspection of the chest Resp Auscultation: clear to auscultation bilaterally Cardio Palpation: normal PMI Heart sounds: S1 normal heart sound present, S2 normal heart sound present, no gallops, no murmurs and no rubs GI Palpation (GI): Soft to palpation Back/Spine/Pelvis Other: unremarkable Skin General skin exam: no rashes or lesions noted Neuro General: patient oriented x3 Speech: No Abnormal speech present Extrem General: Yes normal to inspection Psych Mental Status: mental status grossly normal Office Procedures EKG Details: EKG with underlying sinus rhythm at 81/Min; no significant ST-T changes and otherwise unremarkable. [place]. [id number], Complete Assessment & Plan Assessment & Plan (1) POTS (postural orthostatic tachycardia syndrome): Code(s): G90.A - Postural orthostatic tachycardia syndrome [POTS] Category: Medical (2) : Code(s): Z34.90 - Encounter for supervision of normal , unspecified, unspecified trimester Category: Medical Plan POTS diagnosis per patient history. Today's blood pressure is on the lower side, but previously more so in the normal range. As she is currently , do not advise any medications including beta-blockers or midodrine. To try her best to keep herself as hydrated as possible and also continue with the compression stockings. We will get an echocardiogram for cardiac function. If any concerning findings, will need reassessment. With regard to work, she would like to take frequent breaks for hydrating herself and we can write a note for that. Orders: Orders CA echo transthoracic complete Today G90.A - Postural orthostatic tachycardia syndrome [POTS] Coding Level of Care Code New Pt Level 3 (38731) Diagnoses POTS (postural orthostatic tachycardia syndrome) G90.A Z34.90 CPT Codes EKG - CPT: 67302-[id number], Complete ([id number])
== END 2024-11-03 10:23 | disposition home or self-care (01) ==
LOC: HO.HCS 09:51
PROVIDERS: Visit Provider Internal Medicine
DX: G90.A Postural orthostatic tachycardia syndrome [POTS] (principal); Z34.90 Encounter for supervision of normal pregnancy, unspecified, unspecified trimester
CPT/HCPCS: 93010; 99203

== ENCOUNTER → 2024-11-03 09:51 | Outpatient (BNVA) | payer OTHER, SELFPAY | PROVIDERS: Visit Provider Internal Medicine | DX: O99.352 Diseases of the nervous system complicating pregnancy, second trimester (principal); G90.A Postural orthostatic tachycardia syndrome [POTS]; Z3A.22 22 weeks gestation of pregnancy | CPT/HCPCS: 93005 ==

== ENCOUNTER 2024-11-05 11:36 | Outpatient (AMB) | payer OTHER, SELFPAY ==
[2024-11-05 11:37] VITALS: BP 112/68; BMI 23.0
--- NOTE | 2024-11-05 11:37 | A.OFFVIS_ITS ---
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 Required: No Information Interpreted: non-clinical & clinical Accompanied by: Self / Same As Patient Allergies amoxicillin Allergy (Verified 11/05/24 11:42) Rash Patient : Yes PFSH Medical History (Updated 11/03/24 @ 11:50 by Marty Yu MD) Dizziness Trigeminal neuralgia POTS (postural orthostatic tachycardia syndrome) Supervision of normal in second trimester LGSIL on Pap smear of cervix Animal bite Surgical History Ovarian torsion [place] teeth removed Family History Mother Hx of malignant neoplasm of female breast Father Hx of deep venous thrombosis Brother Anxiety and depression Sister Anxiety and depression Social History (Updated 11/03/24 @ 09:55 by Maricruz Lemus CMA) Alcohol intake: former Patient Tobacco Use Status: Never used Tobacco Patient : Yes Female Reproductive History Menstrual Age of Menarche: 15 Physical Exam Vital Signs: Last Vital Signs BP 112/68 11/05/24 11:37 BMI result Body Mass Index 23.0 Results AMB Urinalysis, Automated UA Leukoctes 0 Jovani/uL Last Edit by Rosie Boothe CMA on 11/05/24 11:53 UA Nitrite Negative Last Edit by Rosie Boothe, DONALD on 11/05/24 11:53 UA Urobilinogen 3.5 mg/dL Last Edit by Rosie Boothe CMA on 11/05/24 11:53 UA Protein 0 mg/dL Last Edit by Rosie Boothe, DONALD on 11/05/24 11:53 UA pH 8.0 Last Edit by Rosie Boothe CMA on 11/05/24 11:53 UA Blood 0 [place]/uL Last Edit by Rosie Boothe, DONALD on 11/05/24 11:53 UA Specific [place] 1.010 Last Edit by Rosie Boothe, DONALD on 11/05/24 11:53 UA Ketone Negative Last Edit by Rosie Boothe CMA on 11/05/24 11:53 UA Bilirubin 0 mg/dL Last Edit by Rosie Boothe CMA on 11/05/24 11:53 UA Glucose 0 mg/dL Last Edit by Rosie Boothe CMA on 11/05/24 11:53 Results Reviewed Results Reviewed: Laboratory Last Values Urine pH (Auto) 8.0 11/05/24 11:52 Specific [place] (Auto) 1.010 11/05/24 11:52 Urine Protein (Auto) 0 mg/dL 11/05/24 11:52 Glucose (UA)(Auto) 0 mg/dL 11/05/24 11:52 Urine Ketones (Auto) Negative 11/05/24 11:52 Urine Blood (Auto) 0 [place]/uL 11/05/24 11:52 Urine Nitrite (Auto) Negative 11/05/24 11:52 Urine Bilirubin (Auto) 0 mg/dL 11/05/24 11:52 Urine Urobilinogen (Auto) 3.5 mg/dL 11/05/24 11:52 Leukocyte Esterase (Auto) 0 Jovani/uL 11/05/24 11:52 Assessment & Plan Assessment & Plan Orders: Orders AMB Urinalysis Automated Today Z34.90 - Encounter for supervision of normal , unspecified, unspecified trimester Coding
--- NOTE | 2024-11-05 11:55 | MHC.OFFVISPN ---
Intake Vital Signs 11/05/24 11:37 Height 5 ft 4 in Weight 134 lb BMI 23.0 BP 112/68 Intake Visit Reasons: NATHALY 15-19 week Allergies amoxicillin Allergy (Verified 11/05/24 11:42) Rash [facility] Medical History (Updated 11/03/24 @ 11:50 by Marty Yu MD) Dizziness Trigeminal neuralgia POTS (postural orthostatic tachycardia syndrome) Supervision of normal in second trimester LGSIL on Pap smear of cervix Animal bite Surgical History Ovarian torsion [place] teeth removed Family History Mother Hx of malignant neoplasm of female breast Father Hx of deep venous thrombosis Brother Anxiety and depression Sister Anxiety and depression Social History (Updated 11/03/24 @ 09:55 by Maricruz Lemus CMA) Alcohol intake: former Patient Tobacco Use Status: Never used Tobacco Female Reproductive History Menstrual Age of Menarche: 15 History History 3 Elective abortions 0 Para 1 Spontaneous abortions 1 Hx # Term Pregnancies 1 Ectopic pregnancies 0 Hx # Pregnancies 0 Multiple births 0 Past Pregnancies Del. Date GA/Weeks Outcome Route Wt Inf Gender Labor Gena Anesthesia Location Provider Complicate 10/03/14 39 live - full term vaginal delivery 7 lb 13 oz Male 16 hours epidural [facility] none 07/12/22 8 spontaneous Visit CLARENCE Calculator Estimated Delivery Date Method Current WG Current Estimate 03/10/25 LMP (Certain) 22w 1d Other Estimates 03/14/25 Ultrasound #1 21w 4d Expected Delivery Route/Plan vaginal delivery Specific Issues/Plans 29Yr. old G 3 P 1 EDC:03/10/25 by LMP Blood type: Problem List: 1. Anxiety-no meds/counseling. EDPS-5 2. History of UTI and yeast infections 3. LGSIL (age 19), followed by negative results. Pap 08/12/2024=ASCUS, HPV negative, repeat pp. 4. POTS-cardiology evaluation 11/09/2023, echo cardiogram to be scheduled... Testing: Panorama/and or First Tri screen: risk NT scan: 08/26/24 AFP: FAS: echogenic foci noted, left lateral placenta, plan follow up 3rd trimester ultrasound. Glucose: early 28 wk glucose: CBC 1st Tri: 28 wk. 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 Transportation: own Labor, and Concerns: partner/FOB- Trino Labor support: Trino Plan: Feeding Plans: Breast-feeding, did not breastfeed successfully after initial attempt due to multiple concerns control: OB Visit Log Initial Weight: 120 lb Date <del>?</del> EGA Weight Gest Week Fundal Ht Present FHR move Efface % Edema BP PrePreg We Weight GTT <del>?</del> Glucose LV Protein Blood Type 08/10/24 <del>?</del> 9w 5d 128 lb 4 oz (+8 lb 4 oz) 128 lb 4 oz <del>?</del> 08/12/24 <del>?</del> 10w 0d 121 lb (+16 oz) 9 110/70 121 lb <del>?</del> 09/11/24 <del>?</del> 14w 2d 126 lb 8 oz (+6 lb 8 oz) 16 150 108/72 126 lb 8 oz <del>?</del> 10/08/24 <del>?</del> 18w 1d 126 lb (+6 lb) 19 150 110/74 126 lb <del>?</del> 11/05/24 <del>?</del> 22w 1d 134 lb (+14 lb) 22 150 active 112/68 134 lb <del>?</del> Notes Visit Date: 11/05/24 Last Updated by: Ynes Guajardo CNM Note author: Ynes Guajardo CNM. 22.1wk. NATHALY. Taking PNV, Doing well with no concerns. Good appetite, trying to hydrate. Denies any LOF, VB, abd. pain or urinary symptoms. Has seen a customs guard this week, is due to have an echo scheduled. Reviewed recent FAS findings of cardiac echogenic foci, is quite anxious about it despite consultation with [facility] provider reassuring her plan a follow up ultrasound, okayed with previously per [facility] department. She reports it is hard for her to hydrate if at all at work particularly the day she has to be scheduled in the IV facility area as she can not drink or go to the bathroom area for 4 hours at a time. Reviewed: PTL s/s-LOF/Ctx's/VB, when to seek emergent care at [facility]. Strongly recommend to complete her labs today. 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 RTO 4 wks. Visit Date: 10/08/24 Last Updated by: Ynes Guajardo CNM Note author: Ynes Guajardo CNM. 18.1wk. NATHALY. Taking PNV, Doing well with no concerns. Good appetite, stays well hydrated. Reports she still has nausea throughout the day but no longer is vomiting. Taking her B6 vitamins. Has felt movements here in there. FAS is scheduled for October 22. Denies any LOF, VB, abd. pain or urinary symptoms. Has not completed her labs. Reviewed: Pap smear results-ascus negative HPV, sign for [facility] Pap/colposcopy results. She had normal Paps following the initial LGSIL which was approximately 10 years ago. PTL s/s-LOF/Ctx's/VB, when to seek emergent care. discomforts, self help measures. Encouraged a healthy well balanced diet, regular walking/exercise in . Hydrate well, 10-12 glasses of water daily. Reminded to register for her labs and have them done tomorrow patient agrees to the plan of care. RTO 4wks. Visit Date: 09/11/24 Last Updated by: Ynes Guajardo CNM Note author: Ynes Guajardo CNM. 14.2wk. NATHALY. Taking PNV, Doing well with concerns: Has daily nausea and vomiting that improves throughout the day able to eat later in the evening. 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 Previous note to excuse work in that area was given for 2 weeks. Stays well hydrated. Denies any LOF, VB, abd. pain or urinary symptoms. Reports 2 episodes of right-sided ligament pain resolved with rest and heat. Reviewed: PTL s/s-LOF/Ctx's/VB, when to seek emergent care. discomforts, self help measures. Note for 30 days to excuse from IV room until improvement. Hydrate well, 10-12 glasses of water daily. FAS ordered for 5 weeks. RTO 4wks. Visit Date: 08/12/24 Last Updated by: Ynes Guajardo CNM Note author: Ynes Guajardo CNM. 10wk. IOB. Taking PNV, B6 and Unisom for nausea, Doing well with no concerns. Good appetite, attempts to stays well hydrated. Denies any LOF, VB, abd. pain or urinary symptoms. She admits to increased yellow discharge without any symptoms. History of LGSIL 1 year ago, previous care in [place]. She reports regular known menstrual cycles lasting 28-31 days has been tracking them for over 2 years. EDC confirmed to LMP 03/10/2024. Reviewed: Pelvic pain/ VB, when to seek emergent care. Delivery and other services at [facility] if decides to transfer care. Pap, GC chlamydia and BV panel obtained await results for plan of care. Encouraged a healthy well balanced diet, regular walking/exercise in . Hydrate well, 10-12 glasses of water daily. Check with health insurance again speak with the rn house supervisor about concerns for tier coverage w/providers and lab services. Panoramic ordered labs pending based on patient's clarification on coverage on where to have her labs drawn. RTO 4wks. Visit Date: 08/10/24 Last Updated by: TYE Oconnor is here today for her Nurse intake. LMP 06/03/24 CLARENCE 03/10/25. CLARENCE by U/S on 08/05/24= 03/14/25. Pt is a , Pt was a surrogate, but miscarried at 8 wks. Current partner is FOB #2. Pt is employed at [employer] and also going to school for [employer]. She has been having issues with nausea, but is keeping well hydrated and eating more frequent, smaller amounts of food. Pt denies any use of MJ or illecits. Discussed labs including CF testing and UDS. Discussed NT u/s at [facility] and orders placed. Discussed Panorama testing, and pt will call Ins co to confirm coverage. Pts first was wnl, and had vaginal delivery with Epidural. Pt aware her u/s and delivery will be at [facility]. pt denies any family Hx of diabetes. Informed pt we recommend flu vaccine in and pt accepts. Discussed how to reach MD after hours and to be seen in [facility] for any OB issues. OB PE scheduled for 08/12/24. Results AMB Urinalysis, Automated UA Leukoctes 0 Jovani/uL Last Edit by Rosie Boothe, CUSTOMS PATROL OFFICER on 11/05/24 11:53 UA Nitrite Negative Last Edit by Rosie Boothe, CUSTOMS PATROL OFFICER on 11/05/24 11:53 UA Urobilinogen 3.5 mg/dL Last Edit by Rosie Boothe, CUSTOMS PATROL OFFICER on 11/05/24 11:53 UA Protein 0 mg/dL Last Edit by Rosie Boothe, CUSTOMS PATROL OFFICER on 11/05/24 11:53 UA pH 8.0 Last Edit by Rosie Boothe, CUSTOMS PATROL OFFICER on 11/05/24 11:53 UA Blood 0 Clayton/uL Last Edit by Rosie Boothe, CUSTOMS PATROL OFFICER on 11/05/24 11:53 UA Specific Debord 1.010 Last Edit by Roise Boothe, CUSTOMS PATROL OFFICER on 11/05/24 11:53 UA Ketone Negative Last Edit by Rosie Boothe, CUSTOMS PATROL OFFICER on 11/05/24 11:53 UA Bilirubin 0 mg/dL Last Edit by Rosie Boothe, CUSTOMS PATROL OFFICER on 11/05/24 11:53 UA Glucose 0 mg/dL Last Edit by Rosie Boothe, CUSTOMS PATROL OFFICER on 11/05/24 11:53 Results Reviewed Results Reviewed: Laboratory Last Values Urine pH (Auto) 8.0 11/05/24 11:52 Specific Debord (Auto) 1.010 11/05/24 11:52 Urine Protein (Auto) 0 mg/dL 11/05/24 11:52 Glucose (UA)(Auto) 0 mg/dL 11/05/24 11:52 Urine Ketones (Auto) Negative 11/05/24 11:52 Urine Blood (Auto) 0 Clayton/uL 11/05/24 11:52 Urine Nitrite (Auto) Negative 11/05/24 11:52 Urine Bilirubin (Auto) 0 mg/dL 11/05/24 11:52 Urine Urobilinogen (Auto) 3.5 mg/dL 11/05/24 11:52 Leukocyte Esterase (Auto) 0 Jovani/uL 11/05/24 11:52 Coding Level of Care Code [place] Assessment & Plan Assessment & Plan Orders: Orders AMB Urinalysis Automated Today Z34.90 - Encounter for supervision of normal , unspecified, unspecified trimester Medications: Refilled pyridoxine (vitamin B6) 25 mg PO TID 30 days 90 tabs 1RF
== END 2024-11-05 12:22 | disposition home or self-care (01) ==
LOC: HO.HWS 11:36
PROVIDERS: Visit Provider Advanced Practice Midwife
DX: Z34.90 Encounter for supervision of normal pregnancy, unspecified, unspecified trimester (principal)
CPT/HCPCS: 25942

== ENCOUNTER 2024-11-05 11:36 | Outpatient (REF) | payer OTHER, SELFPAY ==
[2024-11-05 13:18] LABS: Hematocrit 33.9 % (37.0-47.0); Hemoglobin 11.5 g/dl (12.0-16.0); Mean Corpuscular HGB Conc 33.9 g/dl (31.0-35.0); Mean Corpuscular Hemoglobin 30.6 pg (27.0-33.0); Mean Corpuscular Volume 90.2 fL (80.0-98.0); Mean Platelet Volume 10.7 fL (9.4-12.3); Platelet Count 202 X10*3/uL (160-400); Red Blood Count 3.76 X10*6/uL (4.20-5.50); Red Cell Distribution Width 13.2 % (11.0-16.0); White Blood Count 9.3 X10*3/uL (4.8-10.8)
[2024-11-05 13:39] LABS: Amphetamine Screen Urine Not Detected (Not Detect); Barbiturates, Urine Not Detected (Not Detect); Benzodiazepines Screen Urine Not Detected (Not Detect); Buprenorphine Scr Not Detected (Not Detect); Cannabinoid Screen Urine Not Detected (Not Detect); Cocaine Screen Urine Not Detected (Not Detect); Fentanyl, urine Not Detected (Not Detect); Methadone Screen, Urine Not Detected (Not Detect); Opiate Screen Urine Not Detected (Not Detect); Oxycodone Screen Urine Not Detected (Not Detect); Phencyclidine Screen Urine Not Detected (Not Detect)
[2024-11-06 04:09] LABS: Syphilis Screen Nonreactive (Nonreactive)
[2024-11-06 04:29] LABS: HBsAGNum1 0.33 S/CO (0.00-0.99); HIV AB/AG Nonreactive (Nonreactive); HIV Num 1 0.06 S/CO (0.00-0.99); Hepatitis B Surface Antigen Negative (Negative); ~HepC Num1 0.11 S/CO (0.00-0.79); ~Hepatitis C Antibody Nonreactive (Nonreactive)
[2024-11-07 06:09] LABS: Rubella IgG Antibody 3.13 Index; Varicella IgG Antibody 2.94 S/CO
[2024-11-15 19:04] LABS: CF Ethnicity NG; Cystic Fibrosis NEGATIVE
== END 2024-11-05 11:37 | disposition home or self-care (01) ==
LOC: HO.LAB 11:36
PROVIDERS: Visit Provider Advanced Practice Midwife
DX: Z34.82 Encounter for supervision of other normal pregnancy, second trimester (principal); Z79.899 Other long term (current) drug therapy
CPT/HCPCS: 80307; 81003; 81220; 85027; 86762; 86780; 86787; 86803; 86850; 86900; 87086; 87340; 87389; 99212

== ENCOUNTER 2024-12-09 13:45 | Outpatient (AMB) | payer OTHER, SELFPAY ==
--- NOTE | 2024-12-09 13:47 | A.OFFVISPN_ITS ---
Intake Vital Signs 12/09/24 13:52 Height 5 ft 4 in Weight 144 lb BMI 24.7 BP 110/60 Intake Visit Reasons: NATHALY Accompanied by: Self / Same As Patient Allergies amoxicillin Allergy (Verified 12/09/24 13:52) Rash PFSH Medical History (Updated 12/09/24 @ 14:37 by Ynes Guajardo CNM) Right sciatic nerve pain Dizziness Trigeminal neuralgia POTS (postural orthostatic tachycardia syndrome) Supervision of normal in second trimester LGSIL on Pap smear of cervix Animal bite Surgical History Ovarian torsion [place] teeth removed Family History Mother Hx of malignant neoplasm of female breast Father Hx of deep venous thrombosis Brother Anxiety and depression Sister Anxiety and depression Social History (Updated 11/03/24 @ 09:55 by Maricruz Lemus CMA) Alcohol intake: former Patient Tobacco Use Status: Never used Tobacco Female Reproductive History Menstrual Age of Menarche: 15 History History 3 Elective abortions 0 Para 1 Spontaneous abortions 1 Hx # Term Pregnancies 1 Ectopic pregnancies 0 Hx # Pregnancies 0 Multiple births 0 Past Pregnancies Del. Date GA/Weeks Outcome Route Wt Inf Gender Labor Gena Anesthesia Location Provider Complicate 10/03/14 39 live - full term vaginal delivery 7 lb 13 oz Male 16 hours epidural [facility] none 07/12/22 8 spontaneous Visit CLARENCE Calculator Estimated Delivery Date Method Current WG Current Estimate 03/10/25 LMP (Certain) 27w 0d Other Estimates 03/14/25 Ultrasound #1 26w 3d Expected Delivery Route/Plan vaginal delivery Specific Issues/Plans 29Yr. old G 3 P 1 EDC:03/10/25 by LMP Blood type: AB positive Problem List: 1. Anxiety-no meds/counseling. EDPS-5. Had a therapist. 2. History of UTI and yeast infections 3. LGSIL (age 19), followed by negative results. Pap 08/12/2024=ASCUS, HPV negative, repeat pp. 4. POTS-cardiology evaluation 11/09/2023, echo cardiogram to be scheduled... Testing: Panorama/and or First Tri screen: risk NT scan: 08/26/24 AFP: FAS: echogenic foci noted, left lateral placenta, plan follow up 3rd trimester ultrasound. Glucose: early 28 wk glucose: CBC 1st Tri: 28 wk. 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 Transportation: own Labor, and Concerns: partner/FOB- Trino Labor support: Trino Plan: Infant Feeding Plans: Breast-feeding, did not breastfeed successfully after initial attempt due to multiple concerns control: OB Visit Log Initial Weight: 120 lb Date -?-?-?-?-?-?-?-?-?-?-?-?- EGA Weight Gest Week Fundal Ht Present FHR move Efface % Edema BP PrePreg We Weight GTT -?-?-?-?-?-?-?-?-?-?-?-?- Glucose LV Protein Blood Type 08/10/24 -?-?-?-?-?-?-?-?-?-?-?-?- 9w 5d 128 lb 4 oz (+8 lb 4 oz) 1 28 lb 4 oz -?-?-?-?-?-?-?-?-?-?-?-?- 08/12/24 -?-?-?-?-?-?-?-?-?-?-?-?- 10w 0d 121 lb (+16 oz) 9 110/70 121 lb -?-?-?-?-?-?-?-?-?-?-?-?- 09/11/24 -?-?-?-?-?-?-?-?-?-?-?-?- 14w 2d 126 lb 8 oz (+6 lb 8 oz) 16 150 108/72 126 lb 8 oz -?-?-?-?-?-?-?-?-?-?-?-?- 10/08/24 -?-?-?-?-?-?-?-?-?-?-?-?- 18w 1d 126 lb (+6 lb) 19 150 110/74 126 lb -?-?-?-?-?-?-?-?-?-?-?-?- 11/05/24 -?-?-?-?-?-?-?-?-?-?-?-?- 22w 1d 134 lb (+14 lb) 22 150 active 112/68 134 lb -?-?-?-?-?-?-?-?-?-?-?-?- 12/09/24 -?-?-?-?-?-?-?-?-?-?-?-?- 27w 0d 144 lb (+24 lb) 26 140 active 110/60 144 lb -?-?-?-?-?-?-?-?-?-?-?-?- Notes Visit Date: 12/09/24 Last Updated by: Ynes Guajardo CNM Note author: Ynes Guajardo CNM. 27wk. NATHALY. Taking PNV, Doing well with no concerns. Good appetite, stays well hydrated. Denies any LOF, VB, abd. pain or urinary symptoms. History right sciatic pain worsening with . History of anxiety onset after her prev ious miscarriage, she reports she tends to be an over thinker. Coping well on her own and had a therapist she can contact. Having concerns with the work environment due to restrictions on being able to hydrate in have a break in the IV room further impact her POTS. Reviewed: PTL s/s-LOF/Ctx's/VB, when to seek emergent care. discomforts, self help measures. Treatment options for anxiety, self-help measures, advised to reach out to therapist and schedule appointments for support. 28 week labs ordered. Advised to speak to her classification case manager regarding a work note for FMLA due to POTS. Referral to PT placed. [facility] and when to call the office for further eval. Encouraged a healthy well balanced diet, regular walking/exercise in . Hydrate well, 10-12 glasses of water daily. RTO 2wks. Visit Date: 11/05/24 Last Updated by: Ynes Guajardo CNM Note author: Ynes Guajardo CNM. 22.1wk. NATHALY. Taking PNV, Doing well with no concerns. Good appetite, trying to hydrate. Denies any LOF, VB, abd. pain or urinary symptoms. Has seen a classification case manager this week, is due to have an echo scheduled. Reviewed recent FAS findings of cardiac echogenic foci, is quite anxious about it despite consultation with [facility] provider reassuring her plan a follow up ultrasound, okayed with previously per [facility] department. She reports it is hard for her to hydrate if at all at work particularly the day she has to be scheduled in the IV facility area as she can not drink or go to the bathroom area for 4 hours at a time. Reviewed: PTL s/s-LOF/Ctx's/VB, when to seek emergent care at [facility]. Strongly recommend to complete her labs today. 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 RTO 4 wks. Visit Date: 10/08/24 Last Updated by: Ynes Guajardo CNM Note author: Ynes Guajardo CNM. 18.1wk. NATHALY. Taking PNV, Doing well with no concerns. Good appetite, stays well hydrated. Reports she still has nausea throughout the day but no longer is vomiting. Taking her B6 vitamins. Has felt movements here in there. FAS is scheduled for October 22. Denies any LOF, VB, abd. pain or urinary symptoms. Has not completed her labs. Reviewed: Pap smear results-ascus negative HPV, sign for [facility] Pap/colposcopy results. She had normal Paps following the initial LGSIL which was approximately 10 years ago. PTL s/s-LOF/Ctx's/VB, when to seek emergent care. discomforts, self help measures. Encouraged a healthy well balanced diet, regular walking/exercise in . Hydrate well, 10-12 glasses of water daily. Reminded to register for her labs and have them done tomorrow patient agrees to the plan of care. RTO 4wks. Visit Date: 09/11/24 Last Updated by: Ynes Guajardo CNM Note author: Ynes Guajardo CNM. 14.2wk. NATHALY. Taking PNV, Doing well with concerns: Has daily nausea and vomiting that improves throughout the day able to eat later in the evening. 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 Previous note to excuse work in that area was given for 2 weeks. Stays well hydrated. Denies any LOF, VB, abd. pain or urinary symptoms. Reports 2 episodes of right-sided ligament pain resolved with rest and heat. Reviewed: PTL s/s-LOF/Ctx's/VB, when to seek emergent care. discomforts, self help measures. Note for 30 days to excuse from IV room until improvement. Hydrate well, 10-12 glasses of water daily. FAS ordered for 5 weeks. RTO 4wks. Visit Date: 08/12/24 Last Updated by: Ynes Guajardo CNM Note author: Ynes Guajardo CNM. 10wk. IOB. Taking PNV, B6 and Unisom for nausea, Doing well with no con cerns. Good appetite, attempts to stays well hydrated. Denies any LOF, VB, abd. pain or urinary symptoms. She admits to increased yellow discharge without any symptoms. History of LGSIL 1 year ago, previous care in [place]. She reports regular known menstrual cycles lasting 28-31 days has been tracking them for over 2 years. EDC confirmed to LMP 03/10/2024. Reviewed: Pelvic pain/ VB, when to seek emergent care. Delivery and other services at [facility] if decides to transfer care. Pap, GC chlamydia and BV panel obtained await results for plan of care. Encouraged a healthy well balanced diet, regular walking/exercise in . Hydrate well, 10-12 glasses of water daily. Check with health insurance again speak with the sound technician supervisor about concerns for tier coverage w/providers and lab services. Panoramic ordered labs pending based on patient's clarification on coverage on where to have her labs drawn. RTO 4wks. Visit Date: 08/10/24 Last Updated by: Anna Goddard LPN Cindy is here today for her Nurse intake. LMP 06/03/24 CLARENEC 03/10/25. CLARENCE by U/S on 08/05/24= 03/14/25. Pt is a , Pt was a surrogate, but miscarried at 8 wks. Current partner is FOB #2. Pt is employed at [employer] and also going to school for [employer]. She has been having issues with nausea, but is keeping well hydrated and eating more frequent, smaller amounts of food. Pt denies any use of MJ or illecits. Discussed labs including CF testing and UDS. Discussed [place] u/s at [facility] and orders placed. Discussed Panorama testing, and pt will call Ins co to confirm coverage. Pts first was wnl, and had vaginal delivery with Epidural. Pt aware her u/s and delivery will be at [facility]. pt denies any family Hx of diabetes. Informed pt we recommend flu vaccine in and pt accepts. Discussed how to reach MD after hours and to be seen in [facility] for any OB issues. OB PE scheduled for 08/12/24. Coding Level of Care Code [place] Diagnoses Supervision of normal in second trimester Z34.92 Right sciatic nerve pain M54.31 Assessment & Plan Assessment & Plan (1) Supervision of normal in second trimester: Code(s): Z34.92 - Encounter for supervision of normal , unspecified, second trimester Category: Medical (2) Right sciatic nerve pain: Code(s): M54.31 - Sciatica, right side Category: Medical Orders: Orders PT Evaluation and Treatment Today M54.31 - Sciatica, right side, Z34.92 - Encounter for supervision of normal , unspecified, second trimester Complete Blood Count no Diff Today Z34.92 - Encounter for supervision of normal , unspecified, second trimester Syphilis Screen Today Z20.2 - Contact with and (suspected) exposure to infections with a predominantly sexual mode of transmission, Z34.92 - Encounter for supervision of normal , unspecified, second trimester Glucose 1 Hour PP 50gm Dose Today Z34.92 - Encounter for supervision of normal , unspecified, second trimester
[2024-12-09 13:52] VITALS: BP 110/60; BMI 24.7
--- OUTSIDE RECORDS SUMMARY | 2024-12-09 14:06 | XMS_ITS | Encounter Summary ---
Author Organization [facility] Address [address] [id number] Care Team Providers Care Grant Specialist Name Role Phone Anette Parham CONCRETE PLACEMENT EQUIPMENT OPERATOR Unavailable [phone] Tho Mirza MD Unavailable [phone] Antione Pickett CONCRETE PLACEMENT EQUIPMENT OPERATOR Unavailable [phone] Keely Zelaya APRN Primary Care Provider [phone] [facility] Department Of Women's Unava ilable Unavailable Encounter Details Date Type Department Care Team (Late st Contact Info) Description 12/05/2022 Telephone [facility] Heart & Vascular [facility] - Electrophysiology [address] [place] [address] Terry Lakhani MD [address] [place] [address] Social History Tobacco Use Types Packs/Day Years Used Date Smoking Tobacco: Never Smokeless Tobacco: Never Alcohol Use Standard Drinks/Week Comments Not Currently 0 (1 standard drink = 0.6 oz pur e alcohol) 0-2 a week Sex and Gender Information Value Date Recorded Sex Assigned at Female 11/29/2022 4:49 PM EST Gender Identity Female 11/29/2022 4:49 PM EST Sexual Orientation Choose not to disclose 2022 4:49 PM EST COVID-19 Exposure Response Date Recorded In the last 10 days, have yo u been in contact with someone who was confirmed or suspected to have Coronavirus/COVID-19? No / Unsure 12/03/2022 11:13 AM EST documented as of this encounter Plan of Treatment Not on file documented as of this encounter Visit Diagnoses Not on filedocumented in this encounter Care Teams Grant Specialist Relationship Specialty Start Date End Date Keely Zelaya APRN [facility] [place] [address] PCP - General 11/29/22 [facility] [address] [place] [id number] PCP - Family Medicine Obstetrics and Gynecology 07/28/23 Anette Parham APRN Nurse Practitioner Gastroenterology 06/15/21 Tho Mirza MD [address] [place] [phone] Sheet Folder Cardiovascular Disease 06/15/21 [place] [address] Neurology Neurology 09/25/21 07/28/23 documented as of this encounter
--- OUTSIDE RECORDS SUMMARY | 2024-12-09 14:06 | XMS_ITS | Encounter Summary ---
Author Organization [facility] Address [address] [place] [address] Care Team Providers Care Solar Fabrication Technician Name Role Phone Cindy Tapia DNP Primary Care Provider [phone] Encounter Details Date Type Department Care Team (Late st Contact Info) Description 10/10/2018 Scanned Document [facility] [place] [address] [place] [address] External, Provider Social History Tobacco Use Types Packs/Day Years Used Date Smoking Tobacco: Never Smokeless Tobacco: Never Alcohol Use Standard Drinks/Week Comments No 0 (1 standard drink = 0.6 oz pur e alcohol) Comments Unknown Sex and Gender Information Value Date Recorded Sex Assigned at Not on file Legal Sex Female 9:40 AM EST Gender Identity Not on file Sexual Orientation Not on file documented as of this encounter Plan of Treatment Not on file documented as of this encounter Procedures Procedure Name Priority Date/Time Associated Diagnosis Comments CARDIAC HOLTER RESULT SCAN Routine 10/09/2018 documented in this encounter Results * Cardiac Holter Result Scan (10/09/2018) us Provider External CV CARDIAC REPORT (CVR) Final Result documented in this encounter Visit Diagnoses Not on filedocumented in this encounter Additional Health Concerns Assessment Noted Time PHQ-9 Depression Total Score: 0 09/18/20 18 8:25 AM EST documented as of this encounter Care Teams Solar Fabrication Technician Relationship Specialty Start Date End Date Cindy Tapia DNP PCP - General 05/03/17 08/28/22 documented as of this encounter
--- OUTSIDE RECORDS SUMMARY | 2024-12-09 14:06 | XMS_ITS | Encounter Summary ---
Author Organization [facility] Address [address] [id number] Care Team Providers Care Filling Layer Up Name Role Phone Cindy Tapia APRN Primary Care Provider Anette Parham SECURITY TRAINER Unavailable [phone] Tho Mirza MD Unavailable [phone] Antione Pickett SECURITY TRAINER Unavailable [phone] Keely Zelaya APRN Primary Care Provider [phone] [facility] Department Of Women's Unava ilable Unavailable Encounter Details Date Type Department Care Team (Late st Contact Info) Description 10/27/2021 Scanned Document [facility] [address] [place] [phone] Bell Moss MD [address] [place] [phone] Social History Tobacco Use Types Packs/Day Years [...] Exposure Response Date Recorded In the last month, have you been in contact with someone who was confirmed or suspected to have Coronavirus / COVID-19? Unable to assess 09/29/2021 9:00 AM EST documented as of this encounter Plan of Treatment Not on file documented as of this encounter Visit Diagnoses Not on filedocumented in this encounter Care Teams Filling Layer Up Relationship Specialty Start Date End Date Cindy Tapia APRN PCP - General Family Medicine 10/06/18 11/28/22 Keely Zelaya APRN [address] [place] [address] PCP - General 11/29/22 [facility] [address] [place] [address] PCP - Family Medicine Obstetrics and Gynecology 07/28/23 Anette Parham APRN Nurse Practitioner Gastroenterology 06/15/21 Tho Mirza MD [address] [place] [phone] Remote Encoding Center Manager Cardiovascular Disease 06/15/21 [place] [address] Neurology Neurology 09/25/21 07/28/23 documented as of this encounter
--- OUTSIDE RECORDS SUMMARY | 2024-12-09 14:06 | XMS_ITS | Encounter Summary ---
Author Organization [facility] Address [address] [place] [address] Care Team Providers Care Spool Winder Name Role Phone Cindy Tapia DNP Primary Care Provider [phone] Encounter Details Date Type Department Care Team (Late st Contact Info) Description 06/15/2021 Scanned Document [facility] [place] [address] [place] [address] External, Provider Social History Tobacco Use Types Packs/Day Years Used Date Smoking Tobacco: Never Smokeless Tobacco: Never Alcohol Use Standard Drinks/Week Comments Yes 0 (1 standard drink = 0.6 oz pur e alcohol) very rarely PHQ-2 Answer Date Recorded PHQ-2 Total Score 0 05/08/2021 Comments No Sex and Gender Information Value Date Recorded [...] Noted Time PHQ-9 Depression Total Score: 0 05/08/20 21 11:42 AM EDT documented as of this encounter Care Teams Spool Winder Relationship Specialty Start Date End Date Cindy Tapia DNP PCP - General 05/03/17 08/28/22 documented as of this encounter
--- OUTSIDE RECORDS SUMMARY | 2024-12-09 14:06 | XMS_ITS | Encounter Summary ---
Author Organization [facility] Address [address] [place] [address] Care Team Providers Care Facilities Assistant Name Role Phone Anette Parham DRIER HELPER Unavailable [phone] Tho Mirza MD Unavailable [phone] Antione Pickett DRIER HELPER Unavailable [phone] Keeyl Zelaya APRN Primary Care Provider [phone] [facility] Women's Unava ilable Unavailable Encounter Details Date Type Department Care Team (Late st Contact Info) Description 12/14/2022 Scanned Document [facility] Heart & Vascular [place] - Electrophysiology [address] [place] [phone] Terry Lakhani MD [address] [place], [place] [phone] Social History Tobacco Use Types Packs/Day Years [...] on filedocumented in this encounter Care Teams Facilities Assistant Relationship Specialty Start Date End Date Keely Zelaya APRN [facility] [place] [address] PCP - General 11/29/22 [facility] [address] [place] [address] PCP - Family Medicine Obstetrics and Gynecology 07/28/23 Anette Parham APRN Nurse Practitioner Gastroenterology 06/15/21 Tho Mirza MD [address] [place] [phone] Issuing Operator Cardiovascular Disease 06/15/21 [place] [address] Neurology Neurology 09/25/21 07/28/23 documented as of this encounter
--- OUTSIDE RECORDS SUMMARY | 2024-12-09 14:07 | XMS_ITS | Encounter Summary ---
Author Organization [facility] Address [address] [place] [address] Care Team Providers Care Dope Sprayer Name Role Phone Cindy Tapia DNP Primary Care Provider [phone] Encounter Details Date Type Department Care Team (Late st Contact Info) Description 06/05/2017 Scanned Document [facility] [place] [address] [place] [address] External, Provider Social History Tobacco Use Types Packs/Day Years Used Date Smoking Tobacco: Never Alcohol Use Standard Drinks/Week Comments Yes 0 (1 standard drink = 0.6 oz pur e alcohol) very rarely Comments Unknown Sex and Gender Information Value Date Recorded Sex Assigned at Not on file Legal Sex Female 9:40 AM EST Gender Identity Not on file Sexual Orientation Not on file documented as of this encounter Plan of Treatment Not on file documented as of this encounter Procedures Procedure Name Priority Date/Time Associated Diagnosis Comments GI SCAN Routine 06/04/2017 documented in this encounter Results * GI Scan (06/04/2017) us Provider External GI PROCEDURE ORDERABLES Final Result documented in this encounter Visit Diagnoses Not on filedocumented in this encounter Care Teams Dope Sprayer Relationship Specialty Start Date End Date Cindy Tapia DNP PCP - General 05/03/17 08/28/22 documented as of this encounter
--- OUTSIDE RECORDS SUMMARY | 2024-12-09 14:07 | XMS_ITS | Encounter Summary ---
Author Organization [facility] Address [address] [place] [address] Care Team Providers Care Cryptologic Technician Operator/Analyst Name Role Phone Cindy Tapia DNP Primary Care Provider [phone] Encounter Details Date Type Department Care Team (Late st Contact Info) Description 10/09/2012 Abstract Pediatric Nephrology [address] [place] [address], [address] [place] [address] Crys Chen MD [address] [place] [address] UTI (urinary tract infection) (Primary Dx); Kidney scarring Social History Tobacco Use Types Packs/Day Years Used Date Smoking Tobacco: Never Assessed Comments Unknown Sex and Gender Information Value Date Recorded Sex Assigned at Not on file Legal Sex Female 9:40 AM EST Gender Identity Not on file Sexual Orientation Not on file documented as of this encounter Last Filed Vital Signs Vital Sign Reading Time Taken Comments Blood Pressure 110/68 10/09/2012 11:28 AM EST si ze 11 Pulse - - Temperature - - Respiratory Rate - - Oxygen Saturation - - Inhaled Oxygen Concentration - - Weight 49.5 kg (109 lb 2 oz) 10/09/2012 11:28 AM EST Height 161.6 cm (5' 3.62 ) 10/09/2012 11:[address] Body Mass Index 18.95 10/09/2012 11:28 AM EST Body Mass Index Percentile 21.28% 10/09/2012 11: 28 AM EST Growth Chart: CDC (Girls, 2- 20 Years) documented in this encounter Plan of Treatment Not on file documented as of this encounter Visit Diagnoses Diagnosis UTI (urinary tract infection)- Primary Urinary tract infection, site not specified Kidney scarring Other specified disorder of kidney and ureter documented in this encounter Care Teams Cryptologic Technician Operator/Analyst Relationship Specialty Start Date End Date Cindy Tapia DNP PCP - General 05/03/17 08/28/22 documented as of this encounter
--- OUTSIDE RECORDS SUMMARY | 2024-12-09 14:07 | XMS_ITS | Clinical Summary ---
Author Organization [facility] Address [address] [place] [address] Care Team Providers Care Tarper Name Role Phone Provider, [facility] Unavailab le Unavailable Keely Zelaya APRN Primary Care Provider [phone] Keely Zelaya APRN Unavailable [phone] Allergies Active Allergy Reactions Criticality Noted Date Comments Amoxicillin Rash,Nausea And Vomiting Low 02/24/2009 Dicyclomine Hives,Itching Medium 09/08/2018 Penicillins Rash,Nausea And Vomiting Low 02/24/2009 Propafenone Rash Low 07/17/2017 Pt denies reaction/allergy to this med Medications albuterol HFA 90 mcg/actuation inhaler Inhale 2 puffs every 4 (four) hours as needed for wheezing or shortness of breath. 1 each 3 Active Additional Information Patient not taking.Reported on 10/28/2023 hydrOXYzine (ATARAX) 25 mg tabletIndicatio ns:Anxiety Take 1 tablet (25 mg total) by mouth 3 (three) times a day as needed for anxiety. 90 tablet 4 Active Active Problems Problem Noted Date Diagnosed Date MDD (major depressive disorder), recurrent episo de, mild 10/29/2023 Assessment & Plan (10/29/2023 1:17 AM EST): PHQ9- 13 Psychological condition is worsening. Regular aerobic exercise. Medication changes per orders. Start sertraline 25 mg daily. After 2 weeks, if tolerated well can increase to 50 mg Psychological condition will be reassessed in 4 weeks. Continue to follow with therapy Establish with psychiatry, follow therapist recommendations for providers in your area. Ovarian torsion 07/28/2023 Tachycardia 11/19/2022 Assessment & Plan (11/19/2022 6:05 PM EST): She has a history of POTS, diagnosed by cardiology in the past. She states that it was a loose diagnosis, and that tests were inconsistent. She will become tachycardic with standing and activities like walking. This resolves with rest and sitting. The other night her heart rate went up as high as 190. Also associated with intermittent palpitations. -Discussed with patient that this may not be her POTS and could be an underlying arrhythmia or other issue. Recommend that she be seen in office to rule out orthostatic hypotension, obtain ECG, and determine any other testing is needed. She has pending labs that she will complete. I will add on a D-dimer to this as well. She does mention that her father had a pulmonary embolism about a year ago, unsure if he had hematology work-up. We will trial propranolol to see if this helps with her racing heart and anxiety, however I reiterated that if she has any recurring issues sustained elevated heart rate, chest pain, shortness of breath, dyspnea on exertion, could be, fever, or any other concerns she should present to the ER for formal work-up. Anxiety 11/19/2022 Assessment & Plan (10/29/2023 1:17 AM EST): DENISA 7 - 20 - sertraline (ZOLOFT) 25 mg tablet; Take 1 tablet (25 mg total) by mouth in the morning. Dispense: 90 tablet; Refill: 3 - hydrOXYzine (ATARAX) 25 mg tablet; Take 1 tablet (25 mg total) by mouth 3 (three) times a day as needed for anxiety. Dispense: 90 tablet; Refill: 0 Continue to follow with therapy Establish with psychiatry, follow therapist recommendations for providers in your area. Assessment & Plan (11/19/2022 6:02 PM EST): Psychological condition is worsening. Regular aerobic exercise. Medication changes per orders. Psychological condition will be reassessed at the next regular appointment. Patient with longstanding history of anxiety since she was a child. Was trialed on multiple SSRIs, SNRIs. States that she was on Zoloft since she was in elementary school. She has been off all medication for about 9 years, has not noticed a different aches from either being off or on medication. Given her concurrent issues with racing heart, previous diagnosis of POTS we will try low-dose propranolol to see if she notices a difference from this. There is room to go up if needed Palpitation 11/19/2022 Assessment & Plan (11/19/2022 6:05 PM EST): Intermittent, lasts for seconds and self resolves. See plan as above. Annual physical exam 09/17/2022 Assessment & Plan (09/17/2022 9:50 PM EST): GENERAL HEALTH RECOMMENDATIONS - Eat a balanced diet with fruits, vegetables, whole grains, low-fat dairy products, and lean protein sources (fish, poultry, beans, eggs, nuts, lean meats) - Be physically active on most days of the week, 30 minutes of walking 4 days per week is a good starting point - Consume alcohol in healthy amounts, which is less than one drink per day for women or less than two drinks per day for men - Vitamin D supplementation is reasonable in the [facility] between July and January - Protect yourself from harmful sun exposure - use sunscreen SPF 30 or protective clothing if you will be out in the sun for more than 15 minutes - Use seatbelts whenever you ride in an automobile - If you have firearms in the home, keep them locked with ammunition stored separately - Develop advanced directives, which are documents that tell what treatments you would want if your life is threatened; an example of such a document is a living will and is available on the [place] [employer] website: https://portal.la.gov/AG/Health-Issues/Jpecxjxsbvdk-Xssvwp-Mhpp-Laws HEALTH MAINTENANCE Fasting labs Cervical cancer screening: pap smears- UTD with OBGYN HIV testing- UTD Lipid panel testing- ordered Vaccinations: flu shot- give today Tdap/Td- given 2013, due 2023 HPV- completed covid- 19- 2 primary and a booster, had covid oct 2020, due for booster Right elbow pain 09/17/2022 Assessment & Plan (09/17/2022 9:51 PM EST): X 2 months worse with prolonged flexion and extension. - xray elbow -rest, ice, compression, elevation -ibuprofen 400 mg TID with food - if no improvement consider ortho referral Family history of breast cancer 09/17/2022 Assessment & Plan (09/17/2022 9:50 PM EST): Referred to genetic counseling [facility] 09/12/2020 Immunizations Name Administration Dates Next Due DTaP 06/12/2000, 7,1995,1995 ,1995 HPV, Quadrivalent 02/26/2011,10/31/2010,08/29/20 10 HPV, Unspecified 06/21/2009,02/18/2009, 9 Hep B, Adolescent or Pediatric 10/21/2004,1995,1995,1995 Hib (PRP-T) 12/09/1996,1995,1995 ,1995 IPV 06/12/2000,1995,1995 ,1995 Influenza (IM) Preservative Free 09/06/2011,06/2010 Influenza, Quadrivalent 09/17/2022,08/15,07/01/2019,07/01/2019 ,06/26/2019 Influenza, Unspecified 07/22/2020,09/06/2011,06/2010 MMR 06/12/2000,09/16/1996 Meningococcal MCV4P 06/02/2013,08/29/2010 Tdap 08/18/2014,05/16/2007 Varicella 05/16/2007,12/13/1997 Family History Medical History Relation Comments No Known Problems Brother Hyperlipidemia Father Hypertension Maternal Grandfather Breast cancer Mother Breast cancer Mother's Sister 1 BRCA2 Positive Mother's Sister 2 Parkinsonism Paternal Grandfather Breast cancer Paternal Grandmother No Known Problems Sister Relation Status Comments Brother Alive Father Alive Maternal Grandfather Alive Maternal Grandmother Alive Mother Alive Mother's Sister 1 Alive Mother's Sister 2 Alive Paternal Grandfather Alive Paternal Grandmother Alive Sister Alive Social History Tobacco Use Types Packs/Day Years Used Date Smoking Tobacco: Never Passive Smoke Exposure: Never Smokeless Tobacco: Never Tobacco Cessation:Counseling Given: Not Answered Alcohol Use Standard Drinks/Week Comments Yes 0 (1 standard drink = 0.6 oz pur e alcohol) rare PHQ-2 Answer Date Recorded PHQ-2 Score 4 10/28/2023 Comments No Sex and Gender Information Value Date Recorded Sex Assigned at Not on file Legal Sex Female 11:08 AM EDT Gender Identity Not on file Sexual Orientation Not on file Last Filed Vital Signs Vital Sign Reading Time Taken Comments Blood Pressure 128/83 02/26/2024 3:59 PM EDT Pulse 89 02/26/2024 3:59 PM EDT Temperature 36.5 ??C (97.7 ??F) 08/05/2023 8:38 AM ED T Respiratory Rate 18 08/02/2022 2:22 PM EDT Oxygen Saturation 96% 10/28/2023 10:52 AM EST Inhaled Oxygen Concentration - - Weight 54.9 kg (121 lb) 02/26/2024 3:59 PM EDT Height 162.6 cm (5' 4 ) 02/26/2024 3:59 PM EDT Body Mass Index 20.77 02/26/2024 3:59 PM EDT Plan of Treatment Health Maintenance Due Date Last Done Comments COVID-19 Vaccine ( season) 2024 09/29/2021, 11/25/2020, 10/26/2020 Influenza Vaccine (#1) 2024 , 08/15/2020, 08/15/2020, Additional history exists DTaP,Tdap,and Td Vaccines (8 - Td or Tdap) 08/18/2024 08/18/2014, 05/16/2007, 06/12/2000, Additional history exists Pap Smear 02/25/2027 02/26/2024, 04/11/2022 Zoster Vaccines (1 of 2) 2045 MMR Vaccines Completed 06/12/2000, 09/16/1996 Hepatitis B Vaccines Completed 10/21/2004, 03/02/1996, 1995, Additional history exists HPV Vaccines Completed 02/26/2011, 10/21, 08/29/2010, Additional history exists Meningococcal Vaccine Completed 06/02/2013, 010 HIV Screening Completed 10/07/2023 Hepatitis C Screening Completed 10/07/2023 Hepatitis A Vaccines Aged Out No long er eligible based on patient's age to complete this topic Pneumococcal Vaccine: Pediatrics (0 to 5 Years) and At-Risk Patients (6 to 64 Years) Aged Out No longer eligible based on patient's age to complete this topic Procedures Procedure Name Priority Date/Time Associated Diagnosis Comments PAP TEST Routine 02/26/2024 4:13 PM EDT Encounter for gynecological examination without abnormal finding HEPATITIS C AB W/REFL TO HCV RNA, QN, PCR (Q) Routine 10/07/2023 1:18 PM EST Other fatigue Myalgia Arthralgia, unspecified joint HIV 1/2 ANTIGEN/ANTIBODY,FO URTH GENERATION W/RFL (Q) Routine 10/07/2023 1:18 PM EST Other fatigue Myalgia Arthralgia, unspecified joint from Last 3 Months or Most Recently Relevant to Health Maintenance Results * (ABNORMAL) Pap Test (02/26/2024 4:13 PM EDT) Case Report Cytology ?Case: [id number] ? Authorizing Provider: ??Saad Ventura MD ?Collected: ? 02/26/2024 1613 ? Ordering Location: ? [facility] Department of Received: ?02/27/2024 0813 ? [facility] [place] ? First Screen: ?Peg, Arabella, BS CT ? (ASCP) ? Pathologist: ? Suzette Espinosa MD ? Specimen: ?Cytopathology, screening PAP test, Cervix ? 03/06/2024 1:18 PM EDT [facility] Clinical Information Routine screening 03/06/2024 1:18 PM EDT [facility] LMP Not provided 03/06/2024 1:18 PM EDT [facility] Interpretation Low grade squamous intraepithelial lesion(A) 03/06/2024 1:18 PM EDT [facility] Specimen Adequacy Satisfactory for evaluation, endocervical/shields sformation zone component present 03/06/2024 1:18 PM EDT [facility] Specimen Processing Thin Prep pap with manual screen/rescreen or review 03/06/2024 1:18 PM EDT [facility] Embedded Images 1:18 PM EDT [facility] Brushing Cervix uteri structure / Unknown Non-blood Collection / Unknown 02/26/2024 4:13 PM EDT 02/27/2024 8:13 AM EDT Saad Ventura MD LAB PATHOLOGY/CYTOLOGY ORDERABLE S Final Result [facility] [address] [place] [address], [place] [phone] * HEPATITIS C AB W/REFL TO HCV RNA, QN, PCR (Q) (10/07/2023 1:18 PM EST) [facility] HEPATITIS C ANTIBODY NON-REACT SARAH NON-REACT SARAH [employer] Comment: HCV antibody was non-reactive. There is no laboratory evidence of HCV infection. In most cases, no further action is required. However, if recent HCV exposure is suspected, a test for HCV RNA (test code 13404) is suggested. For additional information please refer to http://education.[employer].Brandtone/faq/IZB62v4 (This link is being provided for informational/ educational purposes only.) Blood 10/07/2023 1:18 PM EST 10/07/2023 1:26 PM EST Narrative [facility] - 10/09/2023 12:17 PM EST FASTING:NO PATIENT REFUSED SOME TESTING; PATIENT ENCOURAGED TO RETURN. FASTING: NO Keely Zelaya APRN [facility]B [facility] LAB ORDERABLES Final Result [facility] [address] [place] [phone] * HIV 1/2 ANTIGEN/ANTIBODY,FOURTH GENERATION W/RFL (Q) (10/07/2023 1:18 PM EST) [facility] HIV AG/AB, 4TH GEN NON-REACT SARAH NON-REACT SARAH [employer] Comment: HIV-1 antigen and HIV-1/HIV-2 antibodies were not detected. There is no laboratory evidence of HIV infection. PLEASE NOTE: This information has been disclosed to you from records whose confidentiality may be protected by state law. ??If your state requires such protection, then the state law prohibits you from making any further disclosure of the information without the specific written consent of the person to whom it pertains, or as otherwise permitted by law. A general authorization for the release of medical or other information is NOT sufficient for this purpose. ?? For additional information please refer to http://education.Revl/faq/QTB183 (This link is being provided for informational/ educational purposes only.) The performance of this assay has not been clinically validated in patients less than 2 years old. Blood 10/07/2023 1:18 PM EST 10/07/2023 1:26 PM EST Narrative [facility] - 10/09/2023 12:17 PM EST FASTING:NO PATIENT REFUSED SOME TESTING; PATIENT ENCOURAGED TO RETURN. FASTING: NO Keely AU [facility] LAB ORDERABLES Final Result Performing Organization Address City/State/[facility] Co de Phone Number [facility] [address] [place] [phone] from Last 3 Months or Most Recently Relevant to Health Maintenance Insurance [facility] Care Teams Tarper Relationship Specialty Start Date End Date Keely Zelaya APRN [address] [place] [phone] PCP - General Internal Medicine 09/17/22 Keely Zelaya APRN [address] [place] [phone] PCP - Insurance Payer PCP 08/05/23 Provider, [facility] 07/31/22
--- OUTSIDE RECORDS SUMMARY | 2024-12-09 14:07 | XMS_ITS | Encounter Summary ---
Author Organization [facility] Address [address] [place] [address] Care Team Providers Care Traffic Monitor Specialist Name Role Phone Cindy Tapia DNP Primary Care Provider [phone] Encounter Details Date Type Department Care Team (Late st Contact Info) Description 06/04/2017 Scanned Document [facility] [place] [address] [place] [address] Cindy Tapia DNP [address] [phone] Social History Tobacco Use Types Packs/Day Years [...] on filedocumented in this encounter Care Teams Traffic Monitor Specialist Relationship Specialty Start Date End Date Cindy Tapia DNP PCP - General 05/03/17 08/28/22 documented as of this encounter
--- OUTSIDE RECORDS SUMMARY | 2024-12-09 14:07 | XMS_ITS | Encounter Summary ---
Author Organization [facility] Address [address] [place] [address] Care Team Providers Care Blend Plant Operator Name Role Phone Cindy Tapia DNP Primary Care Provider [phone] Encounter Details Date Type Department Care Team (Late st Contact Info) Description 07/13/2022 Scanned Document [facility] [place] [address] [place] [address] External, Provider Social History Tobacco Use Types Packs/Day Years Used Date Smoking Tobacco: Never Smokeless Tobacco: Never Alcohol Use Standard Drinks/Week Comments Yes 0 (1 standard drink = 0.6 oz pur e alcohol) very rarely PHQ-2 Answer Date Recorded PHQ-2 Total Score 0 08/08/2021 Comments No Sex and Gender Information Value [...] Noted Time PHQ-9 Depression Total Score: 0 08/08/20 21 10:51 AM EDT documented as of this encounter Care Teams Blend Plant Operator Relationship Specialty Start Date End Date Cindy Tapia DNP PCP - General 05/03/17 08/28/22 documented as of this encounter
--- OUTSIDE RECORDS SUMMARY | 2024-12-09 14:07 | XMS_ITS | Encounter Summary ---
Author Organization [facility] Address [address] [place] [address] Care Team Providers Care Kiln Burner Name Role Phone Cindy Tapia DNP Primary Care Provider [phone] Encounter Details Date Type Department Care Team (Late st Contact Info) Description 10/19/2021 Scanned Document [facility] [place] [address] [place] [address] External, Provider Social History Tobacco Use Types [...] on file Sexual Orientation Not on file COVID-19 Exposure Response Date Recorded In the last month, have you been in contact with someone who was confirmed or suspected to have Coronavirus / COVID-19? No / Unsure 10/17/2021 12:52 PM EST documented as of this encounter Plan of Treatment Not on file documented as of this encounter Procedures Procedure Name Priority Date/Time Associated Diagnosis Comments EGD (IMAGES) Routine 10/19/2021 documented in this encounter Results * EGD (10/19/2021) us Provider External GI PROCEDURE ORDERABLES Final Result documented in this encounter Visit Diagnoses Not on filedocumented in this encounter Additional Health Concerns Assessment Noted Time PHQ-9 Depression Total Score: 0 08/08/20 21 10:51 AM EDT documented as of this encounter Care Teams Kiln Burner Relationship Specialty Start Date End Date Cindy Tapia DNP PCP - General 05/03/17 08/28/22 documented as of this encounter
--- OUTSIDE RECORDS SUMMARY | 2024-12-09 14:07 | XMS_ITS | Encounter Summary ---
Author Organization [facility] [employer] and [facility] Address [address] [place] [address] Care Team Providers Care Associate Curator Name Role Phone Cindy Tapia MALDONADO Primary Care Provider [phone] Encounter Details Date Type Department Care Team (Late st Contact Info) Description 10/29/2017 Transcribed Orders Employee Health [address] [id number] [phone] Iesha Ludwig MD [address] [phone] (Work) Physical exam, pre-employment (Primary Dx) Social History Tobacco Use Types Packs/Day Years [...] on file documented as of this encounter Results * Mumps antibody, IgG (10/29/2017 9:10 AM EST) Mumps Antibody, IgG Positive Positive 10/29/2017 2:51 PM EST [facility] Mumps Antibody, IgG Interval 3.44 >=0.50 10/29/2017 2:51 PM EST [facility] Blood specimen (specimen) Venipuncture / Unknown 10/29/2017 9:10 AM EST 10/29/2017 12:59 PM EST [facility] - 10/29/2017 2:51 PM EST Reference Interval Interpretation: ? <0.35 Negative, No evidence of immunity or exposure to Mumps demonstrated. >=0.35 to < 0.50 = Indeterminate, Repeat testing in 10-14 days may be helpful in resolving. >=0.50 ??Positive, This may indicate a current or past exposure or immunization to Mumps Virus. A negative result does not rule out acute infection and may be seen in infected patients during the incubation period or early stages of infection. If clinical suspicion remains, then repeat testing is advised in 1-2 weeks. Indeterminate results indicate a repeat testing in 1-2 weeks especially if clinically suspicious. A positive result generally indicates exposure to the pathogen or vaccination. Stage of disease cannot be differentiated. Diagnosis of infectious disease should not be based on a single test result rather than in conjunction with clinical findings, results of other diagnostic testing, and medical judgment. Iesha Ludwig MD LAB BLOOD ORDERABLES Final Result [facility] [address] [place] [address] * Varicella zoster antibody, IgG (10/29/2017 9:10 AM EST) Varicella Zoster Antibody, IgG Numeric 750 >165 IV 10/29/2017 3:20 PM EST [facility] Varicella Zoster Antibody, IgG Positive Positive 10/29/2017 3:20 PM EST [facility] Comment: Reference Interval Interpretation: ? < 135 = Negative, No evidence of immunity or exposure to VZV-IgG demonstrated ? >=135-165 Indeterminate, Repeat testing in 10-14 days may be helpful in resolving. ?>165 Positive, This may indicate a current or past exposure or immunization to VZV IgG Virus. A negative result does not rule out acute infection and may be seen in infected patients during the incubation period or early stages of infection. If clinical suspicion remains, then repeat testing is advised in 1-2 weeks. Indeterminate results indicate a repeat testing in 1-2 weeks especially if clinically suspicious. A positive result generally indicates exposure to the pathogen or vaccination. Stage of disease cannot be differentiated. Diagnosis of infectious disease should not be based on a single test result rather than in conjunction with clinical findings, results of other diagnostic testing, and medical judgment. Blood specimen (specimen) Venipuncture / Unknown 10/29/2017 9:10 AM EST 10/29/2017 12:59 PM EST us Iesha Ludwig MD LAB BLOOD ORDERABLES Final Result [facility] [address] [place] [address] * Rubella antibody, IgG ([facility] L LMW Y[facility]) (10/29/2017 9:10 AM EST) Rubella Antibody, IgG Positive Positive 10/29/2017 2:20 PM EST [facility] Rubella Antibody, IgG Interval 77.3 >=10.0 Index 10/29/2017 2:20 PM EST [facility] Blood specimen (specimen) Venipuncture / Unknown 10/29/2017 9:10 AM EST 10/29/2017 12:59 PM EST Narrative [facility] - 10/29/2017 2:20 PM EST Reference Interval Interpretation: ?< 5.0 IU/mL = Negative, No evidence of immunity or exposure to Rubellaa demonstrated. ?>=5.0 IU/ml and <=9.9 IU/mL = Indeterminate, Repeat testing in 10-14 days may be helpful in resolving. ?>=10.0 IU/ml = Positive, This may indicate a current or past exposure or immunization to Rubella Virus. A negative result does not rule out acute infection and may be seen in infected patients during the incubation period or early stages of infection. If clinical suspicion remains, then repeat testing is advised in 1-2 weeks. Indeterminate results indicate a repeat testing in 1-2 weeks especially if clinically suspicious. A positive result generally indicates exposure to the pathogen or vaccination. Stage of disease cannot be differentiated. Diagnosis of infectious disease should not be based on a single test result rather than in conjunction with clinical findings, results of other diagnostic testing, and medical judgment. us Iesha Ludwig MD LAB BLOOD ORDERABLES Final Result [facility] [address] [place] [address] * Measles (Rubeola) antibody, IgG (10/29/2017 9:10 AM EST) Measles IgG Initial Result >300.0 >=30.0 AU/mL 10/29/2017 3:20 PM EST [facility] Measles IgG Positive Positive 10/29/2017 3:20 PM EST [facility] Comment: Reference Interval Interpretation: ? < 25.0 AU/mL ?? Negative, No evidence of immunity or exposure to Measles demonstrated. ? >=25.0 to 29.9 AU/mL Indeterminate, Repeat testing in 10-14 days may be helpful in resolving. ? >=30.0 AU/mL Positive, This may indicate a current or past exposure or immunization to Measles Virus A negative result does not rule out acute infection and may be seen in infected patients during the incubation period or early stages of infection. If clinical suspicion remains, then repeat testing is advised in 1-2 weeks. Indeterminate results indicate a repeat testing in 1-2 weeks especially if clinically suspicious. A positive result generally indicates exposure to the pathogen or vaccination. Stage of disease cannot be differentiated. Diagnosis of infectious disease should not be based on a single test result rather than in conjunction with clinical findings, results of other diagnostic testing, and medical judgment. Blood specimen (specimen) Venipuncture / Unknown 10/29/2017 9:10 AM EST 10/29/2017 12:59 PM EST us Iesha Ludwig MD LAB BLOOD ORDERABLES Final Result [facility] [address] [place] [address] documented in this encounter Visit Diagnoses Diagnosis Physical exam, pre-employment- Primary Health examination of defined subpopulation documented in this encounter Care Teams Associate Curator Relationship Specialty Start Date End Date Cindy Tapia DNP PCP - General 05/03/17 08/28/22 documented as of this encounter
--- OUTSIDE RECORDS SUMMARY | 2024-12-09 14:07 | XMS_ITS | Encounter Summary ---
Author Organization [facility] Address [address] [place] [address] Care Team Providers Care Senior Sales Consultant Name Role Phone Cindy Tapia DNP Primary Care Provider Encounter Details Date Type Department Care Team (Late st Contact Info) Description 09/08/2021 Scanned Document [facility] [place] [address] [place] [address] External, Provider Social History Tobacco Use Types [...] documented as of this encounter Care Teams Senior Sales Consultant Relationship Specialty Start Date End Date Cindy Tapia DNP PCP - General 05/03/17 08/28/22 documented as of this encounter
--- OUTSIDE RECORDS SUMMARY | 2024-12-09 14:07 | XMS_ITS | Encounter Summary ---
Author Organization [facility] Address [address] [place] [address] Care Team Providers Care U.S. Commissioner Name Role Phone Cindy Tapia DNP Primary Care Provider [phone] Encounter Details Date Type Department Care Team (Late st Contact Info) Description 08/11/2021 Scanned Document [facility] [place] [address] [place] [address] External, Provider Social History Tobacco Use Types [...] documented as of this encounter Care Teams U.S. Commissioner Relationship Specialty Start Date End Date Cindy Tapia DNP PCP - General 05/03/17 08/28/22 documented as of this encounter
--- OUTSIDE RECORDS SUMMARY | 2024-12-09 14:07 | XMS_ITS | Clinical Summary ---
Author Organization [facility] Address [address] [place] [address] Care Team Providers Care On Awake Counselor Name Role Phone Anette Parham APRN Unavailable [phone] Tho Mirza MD Unavailable [phone] Keely Zelaya APRN Primary Care Provider [phone] [facility] Unava ilable Unavailable Allergies Active Allergy Reactions Criticality Noted Date Comments Amoxicillin Rash/Dermatitis Low 02/24/2009 Dicyclomine Itching,Hives Medium 09/08/2018 Penicillins Nausea And Vomiting,Rash/Dermatitis Low 02/24/2009 Propafenone Rash/Dermatitis Low 07/17/2017 Pt denies reaction/allergy to this med Medications Medication Sig Dispensed Refills Start Date End Date Status b complex vitamins capsule Take 1 capsule by mouth daily. Active ondansetron (ZOFRAN-ODT) 4 MG disintegrating tabletIndications:Naus ea TAKE 2 TABLET BY MOUTH THREE TIMES DAILY NEEDED FOR NAUSEA OR VOMITING, PLACE TABLET ON TONGUE TO DISSOLVE 90 tablet 10/25/2021 Active oxyCODONE (ROXICODONE) 5 MG immediate release tablet Take 0.5-1 tablets (2.5-5 mg total) by mouth every 4 (four) hours as needed for moderate pain. Max Daily Amount: 30 mg 10 tablet 12/21/2022 Active propranolol (INDERAL) 10 MG tabletIndications:POTS (postural orthostatic tachycardia syndrome) Take 1 tablet (10 mg total) by mouth 3 (three) times a day. 90 tablet 3 01/15/2023 Active polyethylene glycol (miraLAx) 17 g packet Take 1 packet (17 g total) by mouth daily. 14 packet 04/04/2023 Active acetaminophen (TYLENOL) 500 MG tablet Take 2 tablets (1,000 mg total) by mouth 3 times daily (every 8 hours) as needed for mild pain (pain). 20 tablet 04/04/2023 Active ibuprofen (MOTRIN) 600 MG tablet Take 1 tablet (600 mg total) by mouth 3 (three) times a day as needed for mild pain (pain). 20 tablet 04/04/2023 Active Active Problems Problem Noted Date Diagnosed Date Ovarian torsion 07/28/2023 Panic disorder 06/15/2021 POTS (postural orthostatic tachycardia syndrome) 05/08/2021 Migraine 09/12/2020 Lumbosacral pain 08/07/2019 Dysphagia 09/18/2018 Epigastric pain 09/18/2018 Postural lightheadedness 09/18/2018 Gastroesophageal reflux disease 05/03/2017 Overview (10/10/2020): Update July 2020 by IMO Load (diagnosis update) Anxiety 04/21/2014 Kidney scarring 10/09/2012 Overview (06/15/2021): Overview: Left Left UTI (urinary tract infection) 10/09/2012 Overview (06/15/2021): Overview: frequent frequent Generalized anxiety disorder 11/10/2004 Immunizations Name Administration Dates Next Due Covid-19 mRNA Primary Series Vaccine - Moderna 0.5 mL Full Dose 11/25/2020,10/26/2020 Covid-19 mRNA Vaccine - Mode rna 0.25 mL Booster 09/29/2021 HPV Quadrivalent 02/26/2011,10/31/2010, 0 Hep B, Adolescent or Pediatric 03/02/1996,1994,1995 Influenza, Quadrivalent (FLU ARIX, AFLURIA, FLULAVAL, FLUZONE) Preservative Free IM 07/01/2019,06/26/2019 Influenza, Unspecified 07/22/2020,09/06/2011,06/2010 MMR 06/12/2000,09/16/1996 Meningococcal MCV4P (Menactra) 06/02/2013,2009 Tdap 08/18/2014,05/16/2007 Varicella 05/16/2007,12/13/1997 Family History Medical History Relation Name Comments Breast cancer Maternal Grandmother Breast cancer Mother Olimpia Hypertension Paternal Grandfather Jorden Cancer Paternal Grandmother Relation Name Status Comments Maternal Grandmother Mother Olimpia Paternal Grandfather Jorden Paternal Grandmother Social History Tobacco Use Types Packs/Day Years Used Date Smoking Tobacco: Never Smokeless Tobacco: Never Tobacco Cessation:Counseling Given: Not Answered Alcohol Use Standard Drinks/Week Comments Not Currently 0 (1 standard drink = 0.6 oz pur e alcohol) 0-2 a week AUDIT-C Answer Date Recorded Q1: How often do you have a drink containing alc ohol? 2-4 times a month 07/29/2023 Q2: How many drinks containi ng alcohol do you have on a typical day when you are drinking? 1 or 2 07/29/2023 Q3: How often do you have si x or more drinks on one occasion? Never 07/29/2023 Sex and Gender Information Value Date Recorded Sex Assigned at Female 11/29/2022 4:49 PM EST Gender Identity Female 11/29/2022 4:49 PM EST Sexual Orientation Choose not to disclose 2022 4:49 PM EST Last Filed Vital Signs Vital Sign Reading Time Taken Comments Blood Pressure 107/66 07/29/2023 9:45 AM EDT Pulse 79 07/29/2023 8:00 AM EDT Temperature 36.3 ??C (97.3 ??F) 07/29/2023 8:00 AM ED T Respiratory Rate 18 07/29/2023 8:00 AM EDT Oxygen Saturation 99% 07/29/2023 8:00 AM EDT Inhaled Oxygen Concentration - - Weight 52.2 kg (115 lb) 01/15/2023 8:55 AM EDT Height 162.6 cm (5' 4 ) 01/15/2023 8:55 AM EDT Body Mass Index 19.74 01/15/2023 8:55 AM EDT Plan of Treatment Health Maintenance Due Date Last Done Comments Hepatitis C Virus Screening 1995 HIV Screening 2008 Influenza Vaccine 05/21/2024 09/17/2022, , 08/15/2020, Additional history exists COVID-19 Vaccine ( - season) 2024 09/29/2021, 11/25/2020, 10/26/2020 DTaP/Tdap/Td Vaccines (3 - Td or Tdap) 08/18/2024 08/18/2014, 05/16/2007 Pap Smear (Ages 21-65) 04/11/2025 04/11/2022 Hepatitis B Vaccines Completed 03/02/1996, 1995, 1995 HPV Vaccines Completed 02/26/2011, 10/21, 08/29/2010 Pneumococcal Vaccine: Pediatric (0-5 Years) and At-Risk Patients (6 to 49 Years) Aged Out No longer eligible based on patient's age to complete this topic Procedures Procedure Name Priority Date/Time Associated Diagnosis Comments THINPREP PAP TEST (STOCK AND STATION AGENT) WITH HPV REFLEX, GC/CT Routine 04/11/2022 3:59 PM EDT from Last 3 Months or Most Recently Relevant to Health Maintenance Results * ThinPrep Pap Test (Patrol Driver) with HPV Reflex, GC/CT (04/11/2022 3:59 PM EDT) Report Report [facility] Comment: Final Gynecological Cytology Report ThinPrep Pap Test with HPV Reflex, GC/Chlamydia SPECIMEN ADEQUACY: SATISFACTORY FOR EVALUATION; ENDOCERVICAL/TRANSFORMATION ZONE COMPONENT PRESENT. INTERPRETATION: NEGATIVE FOR INTRAEPITHELIAL LESION OR MALIGNANCY. Electronically Signed: ??Tho Dwyer, [place](ASCP) CLINICAL INFORMATION: LMP: NG Specimen Source: ??Cervix, Endocervix CPT Codes: 48965 ICD Codes: Z01.419 Other 04/11/2022 3:59 PM EDT 04/12/2022 2:01 AM EDT Talha uZrita MD PATHOLOGY/CYTOLOG Y ORDERABLES Performing Organization Address City/State/RUST Co de Phone Number [facility] [address], [place] from Last 3 Months or Most Recently Relevant to Health Maintenance Advance Directives * Full Code (Latest Code Status on File) Date Activated Date Inactivated Comments 07/28/2023 11:08 PM * Full Code Date Activated Date Inactivated Comments 07/28/2023 10:51 PM 07/28/2023 11:08 PM Care Teams On Awake Counselor Relationship Specialty Start Date End Date Keely Zelaya APRN [address] [place] [address] PCP - General 11/29/22 [facility] [address] [place] [address], [place] [address] PCP - Family Medicine Obstetrics and Gynecology 07/28/23 Anette Parham APRN Nurse Practitioner Gastroenterology 06/15/21 Tho Mirza MD [address] [place] [phone] Yard [facility] Car Supervisor Cardiovascular Disease 06/15/21
--- OUTSIDE RECORDS SUMMARY | 2024-12-09 14:07 | XMS_ITS | Clinical Summary ---
Author Organization [facility] Address [address] [place] [address] Care Team Providers Care Mold Dresser Name Role Phone Randee Rodarte MD Primary Care Provider [phone] Randee Rodarte MD Unavailable [phone] Allergies Active Allergy Reactions Criticality Noted Date Comments Amoxil 01/15/2014 [email or web address] Comment: Reaction Date: 28May2013; Active Problems Problem Noted Date Diagnosed Date Anxiety 01/15/2014 Overview (11/24/2023): Onset: 10/26/2003 Syncope 01/15/2014 Overview (11/24/2023): Onset: 01/05/2011; Annotation - 05Jan2011: With Immunizations, needles Immunizations Name Administration Dates Next Due DTaP 06/12/2000 DTaP - Hib (Trihibit) 12/09/1996,1995,09/20,1995 HPV4 (Gardasil 4) 02/26/2011,10/31/2010,08/29/20 10 Hep B (pedi) 03/02/1996,1995,1995 IPV 06/12/2000,1995,1995 ,1995 Influenza,live,intranasal,quad 09/06/2011,2009 MMR 06/12/2000,09/16/1996 Meningococcal ACWY (Menactra) 06/02/2013, 010 PPD/TST (Tuberculin Skin Test) 05/30/2015,2014 Tdap 05/16/2007 Varicella 05/16/2007,12/13/1997 Social History Tobacco Use Types Packs/Day Years Used Date Smoking Tobacco: Never Assessed Comments Unknown Sex and Gender Information Value Date Recorded Sex Assigned at Not on file Legal Sex Female 7:21 PM EDT Gender Identity Not on file Sexual Orientation Not on file Last Filed Vital Signs Vital Sign Reading Time Taken Comments Blood Pressure 118/84 07/21/2012 2:00 PM EDT Pulse 90 07/21/2012 2:00 PM EDT Temperature 37.1 ??C (98.7 ??F) 05/28/2013 4:30 PM ED T Respiratory Rate 40 07/21/2012 2:00 PM EDT Oxygen Saturation - - Inhaled Oxygen Concentration - - Weight 51.9 kg (114 lb 8.1 oz) 05/28/2013 4:30 P M EDT Height 163.8 cm (5' 4.5 ) 07/21/2012 2:00 PM EDT Body Mass Index - - Plan of Treatment Health Maintenance Due Date Last Done Comments Hepatitis C Screening 1995 Pap Smear 2011 DTaP/Tdap/Td (7 - Td or Tdap) 05/16/2017 05/16/2007, 06/12/2000, 12/09/1996, Additional history exists COVID-19 Vaccine ( season) 2024 Influenza (#1) 2024 09/06/2011, 08/29/2010 Zoster (Shingrix) (1 of 2) 2045 05/16/2007, Hep B Completed 03/02/1996, 06/1995, 1995 Hib Completed 12/09/1996, 10/1995, 1995, Additional history exists HPV Vaccine Completed 02/26/2011, 10/21, 08/29/2010 Meningococcal ACWY Completed 06/02/2013, 08/29/2010 Hep A Aged Out No longer eligi ble based on patient's age to complete this topic Pneumococcal Aged Out No longer eligi ble based on patient's age to complete this topic Care Teams Mold Dresser Relationship Specialty Start Date End Date Randee Rodarte MD [address] [place] [address] PCP - General 05/27/23 Randee Rodarte MD [facility] [place] [address] PCP - Backup PCP Pediatrics 11/21/23
--- OUTSIDE RECORDS SUMMARY | 2024-12-09 14:07 | XMS_ITS | Encounter Summary ---
Author Organization [facility] Address [address] [place] [address] Care Team Providers Care Supervisor Melt House Name Role Phone Cindy Tapia DNP Primary Care Provider [phone] Encounter Details Date Type Department Care Team (Late st Contact Info) Description 08/28/2018 Scanned Document [facility] [place] [address] [place] [address] External, Provider Social History Tobacco Use Types [...] on filedocumented in this encounter Care Teams Supervisor Melt House Relationship Specialty Start Date End Date Cindy Tapia DNP PCP - General 05/03/17 08/28/22 documented as of this encounter
--- OUTSIDE RECORDS SUMMARY | 2024-12-09 14:07 | XMS_ITS | Encounter Summary ---
Author Organization [facility] Address [address] [place] [address] Care Team Providers Care Metal Dealer Name Role Phone Cindy Tapia DNP Primary Care Provider [phone] Encounter Details Date Type Department Care Team (Late st Contact Info) Description 08/05/2018 Scanned Document [facility] [place] [address] [place] [address] External, Provider Social History Tobacco Use Types [...] Procedure Name Priority Date/Time Associated Diagnosis Comments COLONOSCOPY Routine 08/05/2018 documented in this encounter Results * COLONOSCOPY (08/05/2018) us Provider External HEALTH MAINTENANCE Final Resul t documented in this encounter Visit Diagnoses Not on filedocumented in this encounter Care Teams Metal Dealer Relationship Specialty Start Date End Date Cindy Tapia DNP PCP - General 05/03/17 08/28/22 documented as of this encounter
--- OUTSIDE RECORDS SUMMARY | 2024-12-09 14:07 | XMS_ITS | Encounter Summary ---
Author Organization [facility] Address [address] [place] [address] Care Team Providers Care Clay Pigeon Loader Name Role Phone Cindy Tapia DNP Primary Care Provider [phone] Encounter Details Date Type Department Care Team (Late st Contact Info) Description 09/25/2021 Scanned Document [facility] [place] [address] [place] [address] External, Provider Social History Tobacco Use Types [...] documented as of this encounter Care Teams Clay Pigeon Loader Relationship Specialty Start Date End Date Cindy Tapia DNP PCP - General 05/03/17 08/28/22 documented as of this encounter
--- OUTSIDE RECORDS SUMMARY | 2024-12-09 14:07 | XMS_ITS | Encounter Summary ---
Author Organization [facility] Address [address] [place] [address] Care Team Providers Care School Secretary Name Role Phone Cindy Tapia APRN Primary Care Provider Anette Parham CHOIR TEACHER Unavailable [phone] Tho Mirza MD Unavailable [phone] Antione Pickett CHOIR TEACHER Unavailable Keely Zelaya APRN Primary Care Provider [phone] [facility] Department Of Women's Unava ilable Unavailable Encounter Details Date Type Department Care Team (Late st Contact Info) Description 08/14/2021 Scanned Document [facility] Neurology [place] [address] [place] [address] [place] [address] Social History Tobacco Use Types Packs/Day Years Used Date Smoking Tobacco: Never Smokeless Tobacco: Never Alcohol Use Standard Drinks/Week Comments Yes 2 (1 standard drink = 0.6 oz pur [...] have Coronavirus / COVID-19? No / Unsure 08/15/2021 3:35 PM EDT documented as of this encounter Plan of Treatment Not on file documented as of this encounter Visit Diagnoses Not on filedocumented in this encounter Care Teams School Secretary Relationship Specialty Start Date End Date Cindy Tapia APRN PCP - General Family Medicine 10/06/18 11/28/22 Keely Zelaya APRN [address] [place] [address] PCP - General 11/29/22 [facility] [address] [place] [address] PCP - Family Medicine Obstetrics and Gynecology 07/28/23 Anette Parham APRN Nurse Practitioner Gastroenterology 06/15/21 Tho Mirza MD [address] [place] [phone] Tower Switch Operator Cardiovascular Disease 06/15/21 [place] [address] Neurology Neurology 09/25/21 07/28/23 documented as of this encounter
--- OUTSIDE RECORDS SUMMARY | 2024-12-09 14:07 | XMS_ITS | Encounter Summary ---
Author Organization [facility] Address [address] [place] [address] Care Team Providers Care Truck Engine Assembler Name Role Phone Randee Rodarte MD Primary Care Provider [phone] Randee Rodarte MD Unavailable [phone] Encounter Details Date Type Department Care Team (Late st Contact Info) Description 08/01/2012 Orders Only [facility] [address] [place] [address] Social History Tobacco Use Types Packs/Day Years Used Date Smoking Tobacco: Never Assessed Comments Unknown Sex and Gender Information Value Date Recorded Sex Assigned at Not on file Legal Sex Female 7:21 PM EDT Gender Identity Not on file Sexual Orientation Not on file documented as of this encounter Procedure Notes * UNKNOWN PROV, PHP - 08/01/2012 12:00 AM EDT Patient Note PHONE CALL Spoke with-both Elisabet Mcpherson and mom. Elisabet suggested a possible benzodiazepam for just a few days at night to help delineate the role of anxiety in Cindy's chest symptoms. Initially mom wasn't thatinterested, but in the past few days Cindy is feeling a resurgence of her anxiety. Paulina Ramirez prescribes pt.'s Zoloft, and had in the past told mom to increase dose to 37.5 mg ifLAuren's symptoms returned. Mom did increase it this morning. Doll sa call into Dr. Ramirez, but not sure if she will hear back by the weekend. I agreed to prescribe a few doses of Alrazolam to try over the next several days, until mom can speak with Dr. Ramirez PLAN ? OTHER ALPRAZolam 0.25 MG TABS, , 6 days, 0 refills, 1-2 tabs as needed in evening Active Problems ? Anxiety ? Renal Cyst - followed by nephrology. Stable. Notify if hematuira ? Renal Disorders - Mass identified 05/01 when pateint c/o flank pain. Had postive Urine Culture at the time. Has renal follow-up 05/27/12- review showed complex cyst- f/u in one month ? Vasovagal Syncope - With Immunizations, needles Current Medication ? Zantac 75 75 MG TABS, , 0 days, 0 refills ? Zoloft 50 MG TABS, One tab by mouth once daily, 60 days, 0 refills Randee Rodarte MD Electronically signed by: Randee Rodarte Date: 08/01/2012 12:33 Electronically approved by: Randee Rodarte Date: 08/01/12 12:33 Received for:Randee Rodarte M.D. Jan 16 2014 12:57PM Eastern Standard Time documented in this encounter Plan of Treatment Not on file documented as of this encounter Visit Diagnoses Not on filedocumented in this encounter Care Teams Truck Engine Assembler Relationship Specialty Start Date End Date Randee Rodarte MD [address] [place] [address] PCP - General 05/27/23 Randee Rodarte MD [address] [place] [address] PCP - Backup PCP Pediatrics 11/21/23 documented as of this encounter
--- OUTSIDE RECORDS SUMMARY | 2024-12-09 14:07 | XMS_ITS | Encounter Summary ---
Author Organization [facility] Address [address] [place] [address] Care Team Providers Care Annealing Operator Name Role Phone Cindy Tapia DNP Primary Care Provider [phone] Encounter Details Date Type Department Care Team (Late st Contact Info) Description 05/22/2017 Scanned Document [facility] [place] [address] [place] [address] Randee Rodarte MD [address] [place] [address] Social History Tobacco Use Types Packs/Day Years [...] on filedocumented in this encounter Care Teams Annealing Operator Relationship Specialty Start Date End Date Cindy Tapia DNP PCP - General 05/03/17 08/28/22 documented as of this encounter
--- OUTSIDE RECORDS SUMMARY | 2024-12-09 14:07 | XMS_ITS | Encounter Summary ---
Author Organization [facility] Address [address] [place] [address] Care Team Providers Care Clinical Research Administrator Name Role Phone Cindy Tapia DNP Primary Care Provider [phone] Encounter Details Date Type Department Care Team (Late st Contact Info) Description 09/08/2020 Scanned Document [facility] [place] [address] [place] [address] External, Provider Social History Tobacco Use Types Packs/Day Years Used Date Smoking Tobacco: Never Smokeless Tobacco: Never Alcohol Use Standard Drinks/Week Comments Yes 0 (1 standard drink = 0.6 oz pur e alcohol) very rarely PHQ-2 Answer Date Recorded PHQ-2 Score 0 04/28/2020 Comments No Sex and Gender Information Value [...] Noted Time PHQ-9 Depression Total Score: 0 07/11/20 20 3:09 PM EDT documented as of this encounter Care Teams Clinical Research Administrator Relationship Specialty Start Date End Date Cindy Tapia DNP PCP - General 05/03/17 08/28/22 documented as of this encounter
--- OUTSIDE RECORDS SUMMARY | 2024-12-09 14:07 | XMS_ITS | Encounter Summary ---
Author Organization [facility] Address [address] [place] [address] Care Team Providers Care Fishing Instructor Name Role Phone Cindy Tapia DNP Primary Care Provider [phone] Encounter Details Date Type Department Care Team (Late st Contact Info) Description 05/19/2018 Scanned Document [facility] [place] [address] [place] [address] Cindy Tapia DNP [address] [phone] Social History Tobacco Use Types Packs/Day Years [...] on filedocumented in this encounter Care Teams Fishing Instructor Relationship Specialty Start Date End Date Cindy Tapia DNP PCP - General 05/03/17 08/28/22 documented as of this encounter
--- OUTSIDE RECORDS SUMMARY | 2024-12-09 14:07 | XMS_ITS | Encounter Summary ---
Author Organization [facility] Address [address] [place] [address] Care Team Providers Care Account Development Representative Name Role Phone Cindy Tapia DNP Primary Care Provider [phone] Encounter Details Date Type Department Care Team (Late st Contact Info) Description 08/05/2021 Epic[facility]Hand Encounter [facility] [place] [address] [place] [address] Yue Barton MD [address] [place] [address] Social History Tobacco Use Types Packs/Day Years [...] documented as of this encounter Care Teams Account Development Representative Relationship Specialty Start Date End Date Cindy Tapia DNP PCP - General 05/03/17 08/28/22 documented as of this encounter
--- OUTSIDE RECORDS SUMMARY | 2024-12-09 14:07 | XMS_ITS | Encounter Summary ---
Author Organization [facility] Address [address] [place] [address] Care Team Providers Care Coding Educator Name Role Phone Thuan Hernandez MD Primary Care Provider Cindy Tapia APRN Primary Care Provider [phone] Anetet Parham OFFSET LABEL REWINDER Unavailable [phone] Tho Mirza MD Unavailable [phone] Antione Pickett OFFSET LABEL REWINDER Unavailable [phone] Keely Zelaya APRN Primary Care Provider [phone] [facility] Department Of Women's Unava ilable Unavailable Encounter Details Date Type Department Care Team (Late st Contact Info) Description 10/10/2016 Scanned Document [address] [address] Provider, MD [place] [address] [place] [address] Social History Tobacco Use Types Packs/Day Years Used Date Smoking Tobacco: Never Assessed Sex and Gender Information Value Date Recorded Sex Assigned at Female 11/29/2022 4:49 PM EST Gender Identity Female 11/29/2022 4:49 PM EST Sexual Orientation Choose not to disclose 2022 4:49 PM EST documented as of this encounter Plan of Treatment Not on file documented as of this encounter Visit Diagnoses Not on filedocumented in this encounter Care Teams Coding Educator Relationship Specialty Start Date End Date Thuan Hernandez MD [address] [place] [address] PCP - General 07/17/17 10/05/18 Cindy Tapia, OFFSET LABEL REWINDER [address] [place] [address] PCP - General Family Medicine 10/06/18 11/28/22 Keely Zelaya APRN [address] [place], [place] [phone] PCP - General 11/29/22 [facility] [address] [place], [place] [phone] PCP - Family Medicine Obstetrics and Gynecology 07/28/23 Anette Parham, OFFSET LABEL REWINDER [address] [place] [address] Nurse Practitioner Gastroenterology 06/15/21 Tho Mirza MD [address] [place] [phone] Sample Processor Cardiovascular Disease 06/15/21 Antione Pickett, [place] [address] Neurology Neurology 09/25/21 07/28/23 documented as of this encounter
--- OUTSIDE RECORDS SUMMARY | 2024-12-09 14:07 | XMS_ITS | Encounter Summary ---
Author Organization [facility] Address [address] [place] [address] Care Team Providers Care Handkerchief Presser Name Role Phone Cindy Tapia DNP Primary Care Provider [phone] Encounter Details Date Type Department Care Team (Late st Contact Info) Description 09/04/2018 Scanned Document [facility] [place] [address] [place] [address] External, Provider Social History Tobacco Use Types [...] on filedocumented in this encounter Care Teams Handkerchief Presser Relationship Specialty Start Date End Date Cindy Tapia DNP PCP - General 05/03/17 08/28/22 documented as of this encounter
--- OUTSIDE RECORDS SUMMARY | 2024-12-09 14:07 | XMS_ITS | Encounter Summary ---
Author Organization [facility] Address [address] [place] [address] Care Team Providers Care Stopper Maker Helper Name Role Phone Cindy Tapia DNP Primary Care Provider [phone] Encounter Details Date Type Department Care Team (Late st Contact Info) Description 07/25/2018 Scanned Document [facility] [place] [address] [place] [address] External, Provider Social History Tobacco Use Types [...] on filedocumented in this encounter Care Teams Stopper Maker Helper Relationship Specialty Start Date End Date Cindy Tapia DNP PCP - General 05/03/17 08/28/22 documented as of this encounter
--- OUTSIDE RECORDS SUMMARY | 2024-12-09 14:07 | XMS_ITS | Clinical Summary ---
Author Organization [facility] Address [address] [place] [address] Phone Care Team Providers Care Audio Production Manager Name Role Phone Unavailable Primary Care Provider Unavailabl e Allergies Active Allergy Reactions Criticality Noted Date Comments Amoxicillin Dicyclomine Itching Low 09/08/2018 Medications clonazePAM (KLONOPIN) 0.5 MG tablet TAKE 1 TABLET BY MOUTH TWICE DAILY IF NEEDED FOR MODERATE TO SEVERE ANXIETY 0 9 Active metoprolol succinate (TOPROL-XL) 25 MG XL 24 hr extended release tablet Take 1 tablet (25 mg total) by mouth daily. Take with or immediately following a meal. 90 tablet 1 9 Active gabapentin (NEURONTIN) 100 mg capsule Take 1 capsule (100 mg total) by mouth 3 (three) times daily with meals for 7 days. 21 capsule 1 Active carBAMazepine (CARBATROL) 200 mg 12 hr capsule Take 1 capsule (200 mg total) by mouth 2 (two) times daily. 28 capsule 1 Active Active Problems Problem Noted Date Diagnosed Date POTS (postural orthostatic tachycardia syndrome) 05/08/2021 Lumbosacral pain 08/07/2019 Epigastric pain 09/18/2018 Dysphagia, unspecified type 09/18/2018 Postural lightheadedness 09/18/2018 Generalized anxiety disorder 05/03/2017 Gastroesophageal reflux disease 05/03/2017 Overview (07/21/2020): Update July 2020 by IMO Load (diagnosis update) UTI (urinary tract infection) 10/09/2012 Overview (10/09/2012): frequent Kidney scarring 10/09/2012 Overview (10/09/2012): Left Immunizations Name Administration Dates Next Due DTaP 06/12/2000, 7,1995,10/07,1995 HPV, quadrivalent 02/26/2011,10/31/2010,08/29/20 10 Hep B, adolescent or pediatric 03/02/1996,1994,1995 Hib (PRP-T) 12/09/1996, 6,1995,07/22 Influenza, injectable, quad with preservative 06/26/2019 Influenza, injectable, quadr ivalent, preservative free 07/01/2019 Influenza, split virus, triv alent, Preservative Free 09/06/2011,08/29/2010 MMR 06/12/2000,09/16/1996 Meningococcal MCV4P - Menactra 06/02/2013,2009 Polio (IPV) 06/12/2000, 6,1995,07/22 Tdap 08/18/2014,05/16/2007 Varicella 05/16/2007,12/13/1997 Family History Medical History Relation Name Comments Anxiety disorder Father Breast cancer Maternal Grandmother Breast cancer Mother Olimpia Hypertension Paternal Grandfather Relation Name Status Comments Brother Alive Father Alive Maternal Aunt Alive Maternal Grandfather Alive Maternal Grandmother Alive Maternal Uncle Alive Mother Olimpia Alive Paternal Aunt Alive Paternal Grandfather Alive Paternal Grandmother Alive Paternal Uncle Alive Sister Alive Social History Tobacco Use [...] Sign Reading Time Taken Comments Blood Pressure 120/76 10/17/2021 12:48 PM EST Pulse 118 10/17/2021 12:48 PM EST Temperature 36.8 ??C (98.2 ??F) 10/17/2021 12:[address] Respiratory Rate 16 10/17/2021 12:48 PM EST Oxygen Saturation 98% 10/17/2021 12:48 PM EST Inhaled Oxygen Concentration - - Weight 53.1 kg (117 lb) 10/17/2021 12:48 PM EST Height 165.1 cm (5' 5 ) 10/17/2021 12:48 PM EST Body Mass Index 19.47 10/17/2021 12:48 PM EST Plan of Treatment Health Maintenance Due Date Last Done Comments Hepatitis C screening 2013 Influenza vaccine 05/21/2024 09/17/2022, , 08/15/2020, Additional history exists Covid-19 vaccine series ( season) 2024 09/29/2021, 11/25/2020, 10/26/2020 Tetanus adult (Td q 10,TDAP once) 08/18/2024 08/18/2014, 05/16/2007, 06/12/2000, Additional history exists Cervical cancer screening 04/11/2025 04/11/2022, 07/2019 RSV Discussion (1 - 1-dose 75+ series) 2070 Meningococcal Vaccine Completed 06/02/2013, 010 HIV screening Addressed 05/03/2017 ([place] ent declined) Overridden with the intention of not completing the topic Pneumococcal Vaccine (2 - 49 years) Aged Out No longer eligible based on patient's age to complete this topic [place]
== END 2024-12-09 14:33 | disposition home or self-care (01) ==
LOC: HO.HWS 13:45
PROVIDERS: Visit Provider Advanced Practice Midwife
DX: Z34.92 Encounter for supervision of normal pregnancy, unspecified, second trimester (principal); M54.31 Sciatica, right side
CPT/HCPCS: 25942

== ENCOUNTER → 2024-12-09 13:45 | Outpatient (BNVA) | payer OTHER, SELFPAY | PROVIDERS: Visit Provider Advanced Practice Midwife | DX: O99.891 Other specified diseases and conditions complicating pregnancy (principal); M54.31 Sciatica, right side; Z3A.27 27 weeks gestation of pregnancy | CPT/HCPCS: 99212 ==

== ENCOUNTER → 2024-12-14 09:49 | Outpatient (REF) | payer OTHER, SELFPAY ==
--- NOTE | 2024-12-14 09:52 | CA_ITS ---
Transthoracic Echocardiogram Patient (Last, First, Middle): Cindy Alcaraz T Gender: Female Date of : 1995 Age: 29 Procedure Date: 12/14/2024 Procedure Type: Transthoracic Echocardiogram Location: OP Height: 162.56 cm Weight: 64.86 kg BSA: 1.70 m2 Heart Rate: 87 bpm BP: 105 / 65 mmHg Metal Spray Operator: FANI Referring MD: Marty Yu MD Symptoms: G90.A - Postural orthostatic tachycardia syndrome [POTS] Study Quality: Adequate ECG Rhythm: Sinus Conclusions: - The left ventricular systolic function is normal. The visually estimated ejection fraction is between 65-70%. - No obvious valvular pathology seen on this study. Findings Left Ventricle Normal left ventricular cavity size. There is normal left ventricular wall thickness. The left ventricular systolic function is normal. The visually estimated ejection fraction is between 65-70%. There is no evidence of regional wall motion abnormalities. Diastolic function is normal for age. Right Ventricle Normal right ventricular cavity size and systolic function. Atria Both atria are normal in size. Aortic Valve There is a normal trileaflet aortic valve. There is no aortic valve stenosis. There is no aortic valve regurgitation. Mitral Valve The mitral valve appears normal. There is trace mitral valve regurgitation. There is no mitral valve stenosis. Pulmonic Valve The pulmonic valve is likely normal. Tricuspid Valve There is trace tricuspid valve regurgitation. There is no evidence of pulmonary hypertension. Great Vessels The asc aorta is normal in size. Venous The inferior vena cava is normal in size and collapses greater than 50% with inspiration. Pericardium/Pleural There is no evidence of pericardial effusion. Prior Study Comparison No prior study available for comparison. Recommendations, Care & Conclusions No obvious valvular pathology seen on this study. Measurements 2D Linear Measurements IVSd: 0.78 0.6-0.9/0.6-1.0 cm LVIDd: 4.53 3.9-5.3/4.2-5.9 cm LVIDd Index: 2.66 2.4-3.2/2.2-3.1 cm/m2 LVIDs: 2.77 2.0-3.6 cm LVPWd: 0.95 0.7-1.1 cm LA Diam: 3.10 2.7-3.8/3.0-4.0 cm LAIDs Index: 1.82 1.5-2.3 cm/m2 LV Mass: 158.94 67-162/88-224 g LV Mass Index: 93.49 43-95/49-115 g/m2 LVOT Diam: 1.90 3.0+(-)1.3 cm 2D Systolic Function EF 4C: 71.50 >55% EF 2C: 69.40 >55% EF BiP: 70.60 >55% Mitral Valve MV Pk E: 1.00 MV PK A: 0.64 MV Decel Time: 183.00 E/A: 1.60 E'Lateral: 17.80 E'Medial: 10.60 E/E' Med: 9.40 E/E' Lat: 5.60 PHT: 54.00 MVA PHT: 4.07 Decel [place]: 5.48 Aortic Valve AoV Pk Drew: 1.41 AoV Mn Drew: 0.92 AoV VTI: 0.26 AoV Pk Grad: 8.00 Aov Mn Grad: 4.00 MEKHI Cont.VTI: 2.36 LVOT LVOT Pk Drew: 1.25 LVOT Mn Drew: 0.77 LVOT VTI: 0.22 LVOT Pk Grad: 6.00 LVOT Mn Grad: 3.00 LVOT Diam: 1.90 LVOT Area: 2.84 Diastolic Function MV Pk E: 1.00 MV Pk A: 0.64 E/A: 1.60 E'Medial: 10.60 E/E' Med: 9.40 E' Laterial: 17.80 E/E' Lat: 5.60 Tricuspid Valve TR Pk Drew: 1.61 TR Pk Grad: 10.00 RA Press: 3.00 RVSP: 13.00 Great Vessels Aorta Sinus of Valsalva: 2.70 2.0-3.5 cm Ao Asc: 2.50 2.1-3.4 cm Pulmonary Valve PV Pk Drew: 0.86 Peak PV Grad: 3.00 Updated in Other Vendor System with Status of Final Marty Yu MD electronically signed on 12/14/2024 11:52:57 AM with status of Final
--- OUTSIDE RECORDS SUMMARY | 2024-12-14 10:46 | XMS_ITS | Encounter Summary ---
Author Organization [facility] Address [address] [place] [id number] Care Team Providers Care Senior Financial Accountant Name Role Phone Anette Parham DAIRY TRUCK DRIVER Unavailable [phone] Tho Mirza MD Unavailable [phone] Antione Pickett DAIRY TRUCK DRIVER Unavailable [phone] Keely Zelaya APRN Primary Care Provider [phone] [facility] Department Of Women's Unava ilable Unavailable Encounter Details Date Type Department Care Team (Late st Contact Info) Description 12/05/2022 Telephone [facility] Heart & Vascular [place] - Electrophysiology [address] [place] [address] Terry Lakhani MD [address] [place] [address] Social History Tobacco Use Types [...] on filedocumented in this encounter Care Teams Senior Financial Accountant Relationship Specialty Start Date End Date Keely Zelaya APRN [facility] [place] [address] PCP - General 11/29/22 [facility] [address] [place] [address] PCP - Family Medicine Obstetrics and Gynecology 07/28/23 Anette Parham APRN Nurse Practitioner Gastroenterology 06/15/21 Tho Mirza MD [address] [place] [address] Paediatrician Cardiovascular Disease 06/15/21 [place] [address] Neurology Neurology 09/25/21 07/28/23 documented as of this encounter
--- OUTSIDE RECORDS SUMMARY | 2024-12-14 10:46 | XMS_ITS | Encounter Summary ---
Author Organization [facility] Address [address] [place] [id number] Care Team Providers Care Supervisor Facepiece Line Name Role Phone Cindy aTpia APRN Primary Care Provider Anette Parham PLUG MACHINE OPERATOR Unavailable [phone] Tho Mirza MD Unavailable [phone] Antione Pickett PLUG MACHINE OPERATOR Unavailable [phone] Keely Zelaya APRN Primary Care Provider [phone] [facility] Department Of Women's Unava ilable Unavailable Encounter Details Date Type Department Care Team (Late st Contact Info) Description 10/27/2021 Scanned Document [facility] [address] [place] [phone] Bell Moss MD [address] [place] [address] Social History Tobacco Use Types Packs/Day [...] filedocumented in this encounter Care Teams Supervisor Facepiece Line Relationship Specialty Start Date End Date Cindy Tapia APRN PCP - General Family Medicine 10/06/18 11/28/22 Keely Zelaya APRN [address] [place] [address] PCP - General 11/29/22 [facility] [address] [place] [address] PCP - Family Medicine Obstetrics and Gynecology 07/28/23 Anette Parham APRN Nurse Practitioner Gastroenterology 06/15/21 Tho Mirza MD [address] [place] [address] Client Delivery Manager Cardiovascular Disease 06/15/21 Ant[place] [address] Neurology Neurology 09/25/21 07/28/23 documented as of this encounter
--- OUTSIDE RECORDS SUMMARY | 2024-12-14 10:46 | XMS_ITS | Encounter Summary ---
Author Organization [facility] Address [address] [place] [address] Care Team Providers Care Hairspring Setter Name Role Phone Cindy Tapia DNP Primary Care Provider [phone] Encounter Details Date Type Department Care Team (Late st Contact Info) Description 10/10/2018 Scanned Document [facility] [place] [address] [place] [address] External, Provider Social History Tobacco Use Types [...] documented as of this encounter Care Teams Hairspring Setter Relationship Specialty Start Date End Date Cindy Tapia DNP PCP - General 05/03/17 08/28/22 documented as of this encounter
--- OUTSIDE RECORDS SUMMARY | 2024-12-14 10:46 | XMS_ITS | Encounter Summary ---
Author Organization [facility] Address [address] [place] [address] Care Team Providers Care Chlorobutadiene Scrubber Operator Name Role Phone Anette Parham COREMAKING MACHINE SETTER Unavailable [phone] Tho Mirza MD Unavailable [phone] Antione Pickett COREMAKING MACHINE SETTER Unavailable [phone] Keely Zelaya APRN Primary Care Provider [phone] [facility] Department Of Women's Unava ilable Unavailable Encounter Details Date Type Department Care Team (Late st Contact Info) Description 12/14/2022 Scanned Document [facility] Heart & Vascular [place] - Electrophysiology [address] [place] [phone] Terry Lakhani MD [address] [place], [place] [phone] Social History Tobacco Use Types Packs/Day Years [...] on filedocumented in this encounter Care Teams Chlorobutadiene Scrubber Operator Relationship Specialty Start Date End Date Keely Zelaya APRN [facility] [place] [address] PCP - General 11/29/22 [facility] [address] [place] [address] PCP - Family Medicine Obstetrics and Gynecology 07/28/23 Anette Parham APRN Nurse Practitioner Gastroenterology 06/15/21 Tho Mirza MD [address] [place] [phone] Top And Trim Worker Cardiovascular Disease 06/15/21 Ant[place] [address] Neurology Neurology 09/25/21 07/28/23 documented as of this encounter
--- OUTSIDE RECORDS SUMMARY | 2024-12-14 10:47 | XMS_ITS | Encounter Summary ---
Author Organization [facility] Address [address] [place] [address] Care Team Providers Care Transportation Manager Name Role Phone Cindy Tapia DNP Primary Care Provider [phone] Encounter Details Date Type Department Care Team (Late st Contact Info) Description 09/08/2021 Scanned Document [facility] [place] [address] [place] [address] External, Provider Social History Tobacco Use Types [...] documented as of this encounter Care Teams Transportation Manager Relationship Specialty Start Date End Date Cindy Tapia DNP PCP - General 05/03/17 08/28/22 documented as of this encounter
--- OUTSIDE RECORDS SUMMARY | 2024-12-14 10:47 | XMS_ITS | Encounter Summary ---
Author Organization [facility] Address [address] [place] [address] Care Team Providers Care Manager Rfid Name Role Phone Cindy Tapia DNP Primary Care Provider [phone] Encounter Details Date Type Department Care Team (Late st Contact Info) Description 07/13/2022 Scanned Document [facility] [place] [address] [place] [address] External, Provider Social History Tobacco Use Types [...] documented as of this encounter Care Teams Manager Rfid Relationship Specialty Start Date End Date Cindy Tapia DNP PCP - General 05/03/17 08/28/22 documented as of this encounter
--- OUTSIDE RECORDS SUMMARY | 2024-12-14 10:47 | XMS_ITS | Encounter Summary ---
Author Organization [facility] Address [address] [place] [address] Care Team Providers Care Scouring Train Operator Chief Name Role Phone Cindy Tapia DNP Primary Care Provider [phone] Encounter Details Date Type Department Care Team (Late st Contact Info) Description 09/08/2020 Scanned Document [facility] [place] [address] [place] [address] External, Provider Social History Tobacco Use Types [...] documented as of this encounter Care Teams Scouring Train Operator Chief Relationship Specialty Start Date End Date Cindy Tapia DNP PCP - General 05/03/17 08/28/22 documented as of this encounter
--- OUTSIDE RECORDS SUMMARY | 2024-12-14 10:47 | XMS_ITS | Encounter Summary ---
Author Organization [facility] Address [address] [place] [address] Care Team Providers Care Conditioning Machine Operator Name Role Phone Cindy Tapia DNP Primary Care Provider [phone] Encounter Details Date Type Department Care Team (Late st Contact Info) Description 08/11/2021 Scanned Document [facility] [place] [address] [place] [address] External, Provider Social History Tobacco Use Types [...] documented as of this encounter Care Teams Conditioning Machine Operator Relationship Specialty Start Date End Date Cindy Tapia DNP PCP - General 05/03/17 08/28/22 documented as of this encounter
--- OUTSIDE RECORDS SUMMARY | 2024-12-14 10:47 | XMS_ITS | Encounter Summary ---
Author Organization [facility] Address [address] [place] [address] Care Team Providers Care Metal Can Inspector Name Role Phone Thuan Hernandez MD Primary Care Provider Cindy Tapia APRN Primary Care Provider [phone] Anette Parham PREPARER Unavailable Tho Mirza MD Unavailable Antione Pickett PREPARER Unavailable [phone] Keely Zelaya APRN Primary Care Provider [phone] [facility] Women[facility] Unava ilable Unavailable Encounter Details Date Type Department Care Team (Late st Contact Info) Description 10/10/2016 Scanned Document [address] [address] Provider, MD [place] [address] [place] [address] Social History Tobacco Use Types Packs/Day Years [...] filedocumented in this encounter Care Teams Metal Can Inspector Relationship Specialty Start Date End Date Thuan Hernandez MD [address] [place] [address] PCP - General 07/17/17 10/05/18 Cindy Tapia, PREPARER [address] [place] [address] PCP - General Family Medicine 10/06/18 11/28/22 Keely Zelaya APRN [address] [place], [place] [id number] PCP - General 11/29/22 [facility] [address] [place], [place] [id number] PCP - Family Medicine Obstetrics and Gynecology 07/28/23 Anette Parham, PREPARER [address] [place] [address] Nurse Practitioner Gastroenterology 06/15/21 Tho Mirza MD [address] [place] [phone] Sample Coordinator Cardiovascular Disease 06/15/21 Antione Pickett, [place] [address] Neurology Neurology 09/25/21 07/28/23 documented as of this encounter
--- OUTSIDE RECORDS SUMMARY | 2024-12-14 10:47 | XMS_ITS | Encounter Summary ---
Author Organization [facility] Address [address] [place] [address] Care Team Providers Care Manager Perioperative Name Role Phone Cindy Tapia DNP Primary Care Provider [phone] Encounter Details Date Type Department Care Team (Late st Contact Info) Description 06/05/2017 Scanned Document [facility] [place] [address] [place] [address] External, Provider Social History Tobacco Use Types [...] on filedocumented in this encounter Care Teams Manager Perioperative Relationship Specialty Start Date End Date Cindy Tapia DNP PCP - General 05/03/17 08/28/22 documented as of this encounter
--- OUTSIDE RECORDS SUMMARY | 2024-12-14 10:47 | XMS_ITS | Clinical Summary ---
Author Organization [facility] Address [address] [place] [address] Phone Care Team Providers Care Hospital Educator Name Role Phone Unavailable Primary Care Provider [...]
--- OUTSIDE RECORDS SUMMARY | 2024-12-14 10:47 | XMS_ITS | Encounter Summary ---
Author Organization [facility] Address [address] [place] [address] Care Team Providers Care Clinical Auditor Name Role Phone Cindy Tapia DNP Primary Care Provider [phone] Encounter Details Date Type Department Care Team (Late st Contact Info) Description 08/05/2021 EpicOnHand Encounter [facility] [place] [address] [place] [address] Yue Barton MD [address] [place] [address] Social History Tobacco Use Types Packs/Day Years [...] as of this encounter Care Teams Clinical Auditor Relationship Specialty Start Date End Date Cindy Tapia DNP PCP - General 05/03/17 08/28/22 documented as of this encounter
--- OUTSIDE RECORDS SUMMARY | 2024-12-14 10:47 | XMS_ITS | Encounter Summary ---
Author Organization [facility] Address [address] [place] [address] Care Team Providers Care Floral Specialist Name Role Phone Cindy Tapia DNP Primary Care Provider [phone] Encounter Details Date Type Department Care Team (Late st Contact Info) Description 06/04/2017 Scanned Document [facility] [place] [address] [place] [address] Cindy Tapia DNP [address] [id number] Social History Tobacco Use Types Packs/Day Years [...] on filedocumented in this encounter Care Teams Floral Specialist Relationship Specialty Start Date End Date Cindy Tapia DNP PCP - General 05/03/17 08/28/22 documented as of this encounter
--- OUTSIDE RECORDS SUMMARY | 2024-12-14 10:47 | XMS_ITS | Encounter Summary ---
Author Organization [facility] Address [address] [place] [address] Care Team Providers Care Lunch Truck Operator Name Role Phone Cindy Tapia DNP Primary Care Provider [phone] Encounter Details Date Type Department Care Team (Late st Contact Info) Description 06/15/2021 Scanned Document [facility] [place] [address] [place] [address] External, Provider Social History Tobacco Use Types [...] documented as of this encounter Care Teams Lunch Truck Operator Relationship Specialty Start Date End Date Cindy Tapia DNP PCP - General 05/03/17 08/28/22 documented as of this encounter
--- OUTSIDE RECORDS SUMMARY | 2024-12-14 10:47 | XMS_ITS | Encounter Summary ---
Author Organization [facility] Address [address] [place] [address] Care Team Providers Care Physician Executive Name Role Phone Cindy Tapia DNP Primary Care Provider [phone] Encounter Details Date Type Department Care Team (Late st Contact Info) Description 05/22/2017 Scanned Document [facility] [place] [address] [place] [address] Randee Rodarte MD [address] [place] [address] Social History Tobacco Use Types [...] on filedocumented in this encounter Care Teams Physician Executive Relationship Specialty Start Date End Date Cindy Tapia DNP PCP - General 05/03/17 08/28/22 documented as of this encounter
--- OUTSIDE RECORDS SUMMARY | 2024-12-14 10:47 | XMS_ITS | Encounter Summary ---
Author Organization [facility] Address [address] [place] [address] Care Team Providers Care Trapeze Performer Name Role Phone Cindy Tapia DNP Primary Care Provider [phone] Encounter Details Date Type Department Care Team (Late st Contact Info) Description 09/04/2018 Scanned Document [facility] [place] [address] [place] [address] External, Provider Social History Tobacco Use Types [...] on filedocumented in this encounter Care Teams Trapeze Performer Relationship Specialty Start Date End Date Cindy Tapia DNP PCP - General 05/03/17 08/28/22 documented as of this encounter
--- OUTSIDE RECORDS SUMMARY | 2024-12-14 10:47 | XMS_ITS | Encounter Summary ---
Author Organization [facility] Address [address] [place] [address] Care Team Providers Care Clinical Laboratory Assistant Name Role Phone Cindy Tapia APRN Primary Care Provider [phone] Anette Parham EHS ENGINEER Unavailable [phone] Tho Mirza MD Unavailable [phone] Antione Pickett EHS ENGINEER Unavailable [phone] Keely Zelaya APRN Primary Care Provider [phone] [facility] Department Of Women's Unava ilable Unavailable Encounter Details Date Type Department Care Team (Late st Contact Info) Description 08/14/2021 Scanned Document [facility] Neu[facility] [place] [address] [place] [address] [place] [address] Social History Tobacco Use Types Packs/Day Years [...] on filedocumented in this encounter Care Teams Clinical Laboratory Assistant Relationship Specialty Start Date End Date Cindy Tapia APRN PCP - General Family Medicine 10/06/18 11/28/22 Keely Zelaya APRN [address] [place] [address] PCP - General 11/29/22 [facility] [address] [place] [address] PCP - Family Medicine Obstetrics and Gynecology 07/28/23 Anette Parham APRN Nurse Practitioner Gastroenterology 06/15/21 Tho Mirza MD [address] [place] [phone] Termite Technician Cardiovascular Disease 06/15/21 [place] [address] Neurology Neurology 09/25/21 07/28/23 documented as of this encounter
--- OUTSIDE RECORDS SUMMARY | 2024-12-14 10:47 | XMS_ITS | Encounter Summary ---
Author Organization [facility] Address [address] [place] [address] Care Team Providers Care Top Precipitator Operator Helper Name Role Phone Cindy Tapia DNP Primary Care Provider [phone] Encounter Details Date Type Department Care Team (Late st Contact Info) Description 10/19/2021 Scanned Document [facility] [place] [address] [place] [address] External, Provider Social History Tobacco Use Types [...] documented as of this encounter Care Teams Top Precipitator Operator Helper Relationship Specialty Start Date End Date Cindy Tapia DNP PCP - General 05/03/17 08/28/22 documented as of this encounter
--- OUTSIDE RECORDS SUMMARY | 2024-12-14 10:47 | XMS_ITS | Clinical Summary ---
Author Organization [facility] Address [address] [place] [address] Care Team Providers Care Commissary Agent Name Role Phone Randee Rodarte MD Primary Care Provider [phone] Randee Rodarte MD Unavailable [phone] Allergies Active Allergy Reactions Criticality Noted Date Comments Amoxil 01/15/2014 [employer] Comment: Reaction Date: 28May2013; Active Problems Problem [...] age to complete this topic Care Teams Commissary Agent Relationship Specialty Start Date End Date Randee Rodarte MD [address] [place] [address] PCP - General 05/27/23 Randee Rodarte MD [facility] [place] [address] PCP - Backup PCP Pediatrics 11/21/23
--- OUTSIDE RECORDS SUMMARY | 2024-12-14 10:47 | XMS_ITS | Encounter Summary ---
Author Organization [facility] Address [address] [place] [address] Care Team Providers Care Wheel Cleaner Name Role Phone Cindy Tapia DNP Primary Care Provider [phone] Encounter Details Date Type Department Care Team (Late st Contact Info) Description 09/25/2021 Scanned Document [facility] [place] [address] [place] [address] External, Provider Social History Tobacco Use Types [...] documented as of this encounter Care Teams Wheel Cleaner Relationship Specialty Start Date End Date Cindy Tapia DNP PCP - General 05/03/17 08/28/22 documented as of this encounter
--- OUTSIDE RECORDS SUMMARY | 2024-12-14 10:47 | XMS_ITS | Encounter Summary ---
Author Organization [facility] [employer] [facility] Address [address] [place] [address] Care Team Providers Care Greenhouse Florist Name Role Phone Cindy Tapia DNP Primary Care Provider [phone] Encounter Details Date Type Department Care Team (Late st Contact Info) Description 10/09/2012 Abstract Pediatric Nephrology [address] [place] [address], [address] [place] [address] Crys Chen MD [address] [place] [address] UTI (urinary tract infection) (Primary [...] ureter documented in this encounter Care Teams Greenhouse Florist Relationship Specialty Start Date End Date Cindy Tapia DNP PCP - General 05/03/17 08/28/22 documented as of this encounter
--- OUTSIDE RECORDS SUMMARY | 2024-12-14 10:47 | XMS_ITS | Encounter Summary ---
Author Organization [facility] Address [address] [place] [address] Care Team Providers Care Mortgage Loan Reviewer Name Role Phone Randee Rodarte MD Primary Care Provider [phone] Randee Rodarte MD Unavailable [phone] Encounter Details Date Type Department Care Team (Late st Contact Info) Description 08/01/2012 Orders Only [facility] [address] [place] [address] Social History Tobacco Use Types Packs/Day Years [...] on filedocumented in this encounter Care Teams Mortgage Loan Reviewer Relationship Specialty Start Date End Date Randee Rodarte MD [address] [place] [address] PCP - General 05/27/23 Randee Rodarte MD [address] [place] [address] PCP - Backup PCP Pediatrics 11/21/23 documented as of this encounter
--- OUTSIDE RECORDS SUMMARY | 2024-12-14 10:47 | XMS_ITS | Clinical Summary ---
Author Organization [facility] Address [address] [place] [address] Care Team Providers Care Bureau Director Name Role Phone Anette Parham APRN Unavailable [phone] Tho Mirza MD Unavailable [phone] Keely Zelaya APRN Primary Care Provider [phone] [facility] Department Of Women's Unava ilable Unavailable Allergies [...] Date/Time Associated Diagnosis Comments THINPREP PAP TEST (INTERNET SALES ASSOCIATE) WITH HPV REFLEX, GC/CT Routine 04/11/2022 3:59 PM EDT from Last 3 Months or Most Recently Relevant to Health Maintenance Results * ThinPrep Pap Test (Printer Machine) with HPV Reflex, GC/CT (04/11/2022 3:59 PM EDT) Report Report [facility] Comment: Final Gynecological Cytology Report ThinPrep Pap Test with HPV Reflex, GC/Chlamydia SPECIMEN ADEQUACY: SATISFACTORY FOR EVALUATION; ENDOCERVICAL/TRANSFORMATION ZONE COMPONENT PRESENT. INTERPRETATION: NEGATIVE FOR INTRAEPITHELIAL LESION OR MALIGNANCY. Electronically Signed: ??Tho Dwyer, [place](ASCP) CLINICAL INFORMATION: LMP: NG Specimen Source: ??Cervix, Endocervix CPT Codes: 49269 ICD Codes: Z01.419 Other 04/11/2022 3:59 PM EDT 04/12/2022 2:01 AM EDT Talha Zurita MD PATHOLOGY/CYTOLOG Y ORDERABLES Performing Organization Address City/State/[facility] Co de Phone Number [facility] [address] [place], [place] from Last 3 Months or Most Recently Relevant to Health Maintenance Advance Directives * Full Code (Latest Code Status on File) Date Activated Date Inactivated Comments 07/28/2023 11:08 PM * Full Code Date Activated Date Inactivated Comments 07/28/2023 10:51 PM 07/28/2023 11:08 PM Care Teams Bureau Director Relationship Specialty Start Date End Date Keely Zelaya APRN [address] [place] [address] PCP - General 11/29/22 [facility] Department Of Women's [address] [place] [address], [place] [address] PCP - Family Medicine Obstetrics and Gynecology 07/28/23 Anette Parham APRN Nurse Practitioner Gastroenterology 06/15/21 Tho Mirza MD [address] [place] [address] Recharger Cardiovascular Disease 06/15/21
--- OUTSIDE RECORDS SUMMARY | 2024-12-14 10:47 | XMS_ITS | Clinical Summary ---
Author Organization [facility] Address [address] [place] [address] Care Team Providers Care Patient'S Librarian Name Role Phone Provider, [facility] Unavailab le Unavailable Keely Zelaya APRN Primary Care Provider [phone] Keely Zelaya APRN Unavailable [phone] Allergies Active Allergy Reactions Criticality Noted Date [...] Vitamin D supplementation is reasonable in the [facility] between July and January - Protect yourself [...] living will and is available on the [place] [employer] Office website: https://portal.[place].gov/AG/Health-Issues/Lsvgtjfexocv-Rosmmj-Xaav-Laws HEALTH MAINTENANCE Fasting labs Cervical cancer screening: [...] 9:50 PM EST): Referred to genetic counseling [facility] 09/12/2020 Immunizations Name Administration Dates Next Due [...] 4:13 PM EDT) Case Report Cytology ?Case: [id number] ? Authorizing Provider: ??Saad Ventura MD ?Collected: ? 02/26/2024 1613 ? Ordering Location: ? [facility] Department of Received: ?02/27/2024 0813 ? [facility] ? First Screen: ?Peg, Arabella, BS CT ? (ASCP) ? Pathologist: ? Suzette Espinosa MD ? Specimen: ?Cytopathology, screening PAP test, Cervix ? 03/06/2024 1:18 PM EDT [facility] Clinical Information Routine screening 03/06/2024 1:18 PM EDT [facility] LMP Not provided 03/06/2024 1:18 PM EDT [facility] Interpretation Low grade squamous intraepithelial lesion(A) 03/06/2024 1:18 PM EDT [facility] Specimen Adequacy Satisfactory for evaluation, endocervical/shields sformation zone component present 03/06/2024 1:18 PM EDT [facility] Specimen Processing Thin Prep pap with manual screen/rescreen or review 03/06/2024 1:18 PM EDT [facility] Embedded Images 1:18 PM EDT [facility] Brushing Cervix uteri structure / Unknown Non-blood Collection / Unknown 02/26/2024 4:13 PM EDT 02/27/2024 8:13 AM EDT Saad [place] MD LAB PATHOLOGY/CYTOLOGY ORDERABLE S Final Result [facility] [address] [place] [address], [place] [phone] * HEPATITIS C AB W/REFL TO HCV RNA, QN, PCR (Q) (10/07/2023 1:18 PM EST) [facility] HEPATITIS C ANTIBODY NON-REACT SARAH NON-REACT SARAH [employer] Comment: HCV antibody was non-reactive. There is no laboratory evidence of HCV infection. In most cases, no further action is required. However, if recent HCV exposure is suspected, a test for HCV RNA (test code 69030) is suggested. For additional information please refer to http://education.SEA.TriggerMail/faq/ATK66h4 (This link is being provided for informational/ educational purposes only.) Blood 10/07/2023 1:18 PM EST 10/07/2023 1:26 PM EST Narrative [facility] - 10/09/2023 12:17 PM EST FASTING:NO PATIENT REFUSED SOME TESTING; PATIENT ENCOURAGED TO RETURN. FASTING: NO Keely Zelaya APRN [facility]B [facility] LAB ORDERABLES Final Result [employer] [address] [place] [phone] * HIV 1/2 ANTIGEN/ANTIBODY,FOURTH GENERATION W/RFL (Q) (10/07/2023 1:18 PM EST) [facility] HIV AG/AB, 4TH GEN NON-REACT SARAH NON-REACT SARAH [employer] Comment: HIV-1 antigen and HIV-1/HIV-2 antibodies were [...] ?? For additional information please refer to http://education.SMATOOS/faq/MOX445 (This link is being provided for informational/ [...] LAB ORDERABLES Final Result Performing Organization Address City/State/[facility] Co de Phone Number [employer] [address] [place] [phone] from Last 3 Months or Most Recently Relevant to Health Maintenance Insurance [facility] Care Teams Patient'S Librarian Relationship Specialty Start Date End Date Keely Zelaya APRN [address] [place] [address] PCP - General Internal Medicine 09/17/22 Keely Zelaya APRN [address] [place] [address] PCP - Insurance Payer PCP 08/05/23 Provider, [facility] 07/31/22
--- OUTSIDE RECORDS SUMMARY | 2024-12-14 10:47 | XMS_ITS | Encounter Summary ---
Author Organization [facility] Address [address] [place] [address] Care Team Providers Care Novelty Chain Maker Name Role Phone Cindy Tapia DNP Primary Care Provider [phone] Encounter Details Date Type Department Care Team (Late st Contact Info) Description 08/05/2018 Scanned Document [facility] [place] [address] [place] [address] External, Provider Social History Tobacco Use Types [...] on filedocumented in this encounter Care Teams Novelty Chain Maker Relationship Specialty Start Date End Date Cindy Tapia DNP PCP - General 05/03/17 08/28/22 documented as of this encounter
--- OUTSIDE RECORDS SUMMARY | 2024-12-14 10:47 | XMS_ITS | Encounter Summary ---
Author Organization [facility] Address [address] [place] [address] Care Team Providers Care Director Business Systems Name Role Phone Cindy Tapia DNP Primary Care Provider [phone] Encounter Details Date Type Department Care Team (Late st Contact Info) Description 08/28/2018 Scanned Document [facility] [place] [address] [place] [address] External, Provider Social History Tobacco Use Types [...] on filedocumented in this encounter Care Teams Director Business Systems Relationship Specialty Start Date End Date Cindy Tapia DNP PCP - General 05/03/17 08/28/22 documented as of this encounter
--- OUTSIDE RECORDS SUMMARY | 2024-12-14 10:49 | XMS_ITS | Encounter Summary ---
Author Organization [facility] Address [address] [place] [address] Care Team Providers Care Powderman Name Role Phone Cindy Tapia DNP Primary Care Provider [phone] Encounter Details Date Type Department Care Team (Late st Contact Info) Description 07/25/2018 Scanned Document [facility] [place] [address] [place] [address] External, Provider Social History Tobacco Use Types [...] on filedocumented in this encounter Care Teams Powderman Relationship Specialty Start Date End Date Cindy Tapia DNP PCP - General 05/03/17 08/28/22 documented as of this encounter
--- OUTSIDE RECORDS SUMMARY | 2024-12-14 10:49 | XMS_ITS | Encounter Summary ---
Author Organization [facility] Address [address] [place] [address] Care Team Providers Care Cancer Program Director Name Role Phone Cindy Tapia DNP Primary Care Provider [phone] Encounter Details Date Type Department Care Team (Late st Contact Info) Description 05/19/2018 Scanned Document [facility] [employer] [address] [place] [address] Cindy Tapia DNP [address] [phone] Social History Tobacco Use Types Packs/Day Years [...] on filedocumented in this encounter Care Teams Cancer Program Director Relationship Specialty Start Date End Date Cindy Tapia DNP PCP - General 05/03/17 08/28/22 documented as of this encounter
[2024-12-14 12:20] LABS: Hematocrit 29.6 % (37.0-47.0); Hemoglobin 9.8 g/dl (12.0-16.0); Mean Corpuscular HGB Conc 33.1 g/dl (31.0-35.0); Mean Corpuscular Hemoglobin 28.7 pg (27.0-33.0); Mean Corpuscular Volume 86.8 fL (80.0-98.0); Mean Platelet Volume 10.2 fL (9.4-12.3); Platelet Count 174 X10*3/uL (160-400); Red Blood Count 3.41 X10*6/uL (4.20-5.50); Red Cell Distribution Width 12.9 % (11.0-16.0); White Blood Count 9.8 X10*3/uL (4.8-10.8)
[2024-12-14 12:57] LABS: Glucose 1 Hour PP 50gm Dose 107 mg/dL (60-140)
[2024-12-14 13:04] LABS: Syphilis Screen Nonreactive (Nonreactive)
== END ==
LOC: HO.CARD 09:49
PROVIDERS: Absent Provider Advanced Practice Midwife; Visit Provider Internal Medicine
DX: O26.892 Other specified pregnancy related conditions, second trimester (principal); G90.A Postural orthostatic tachycardia syndrome [POTS]; Z20.2 Contact with and (suspected) exposure to infections with a predominantly sexual mode of transmission
CPT/HCPCS: 36415; 82950; 85027; 86780; 93306

== ENCOUNTER → 2024-12-14 09:52 | Outpatient (BNV) | payer OTHER, SELFPAY | PROVIDERS: Absent Provider Advanced Practice Midwife; Visit Provider Internal Medicine | DX: R42 Dizziness and giddiness (principal); G90.A Postural orthostatic tachycardia syndrome [POTS] | CPT/HCPCS: 93306 ==

== ENCOUNTER 2024-12-24 09:24 | Outpatient (AMB) | payer OTHER, SELFPAY ==
--- NOTE | 2024-12-24 09:26 | A.OFFVISPN_ITS ---
Intake Vital Signs 12/24/24 09:27 Height 5 ft 4 in Weight 147 lb BMI 25.2 BP 100/60 Intake Visit Reasons: NATHALY/ Do EDPS Intake Note: EPDS 4 Allergies amoxicillin Allergy (Verified 12/24/24 09:27) Rash Patient : Yes PFSH Medical History (Updated 12/24/24 @ 11:07 by Ynes Guajardo CNM) Anemia affecting Right sciatic nerve pain Dizziness Trigeminal neuralgia POTS (postural orthostatic tachycardia syndrome) Supervision of normal in second trimester LGSIL on Pap smear of cervix Animal bite Surgical History Ovarian torsion [place] teeth removed Family History Mother Hx of malignant neoplasm of female breast Father Hx of deep venous thrombosis Brother Anxiety and depression Sister Anxiety and depression Social History (Updated 11/03/24 @ 09:55 by Maricruz Lemus CMA) Alcohol intake: former Patient Tobacco Use Status: Never used Tobacco Female Reproductive History Menstrual Age of Menarche: 15 History History 3 Elective abortions 0 Para 1 Spontaneous abortions 1 Hx # Term Pregnancies 1 Ectopic pregnancies 0 Hx # Pregnancies 0 Multiple births 0 Past Pregnancies Del. Date GA/Weeks Outcome Route Wt Inf Gender Labor Gena Anesthesia Location Provider Complicate 10/03/14 39 live - full term vaginal delivery 7 lb 13 oz Male 16 hours epidural [facility] none 07/12/22 8 spontaneous Questionnaire [place] Depression [place] Depression Scale I have been able to laugh and see the funny side of things: As much as I always could I have looked forward with enjoyment to things: As much as I ever did I have blamed myself unnecessarily when things went wrong: No, never I have been anxious or worried for no reason: Yes, sometimes I have felt scared of panicky for no very good reason at all: No, not so much Things have been getting on top of me: No, most of the time I have coped quite well I have been so unhappy that I have had difficulty sleeping: No, not at all I have felt sad or miserable: No, not at all I have been so unhappy that I have been crying: No, never The thought of harming myself has occurred to me: Never 4 Visit CLARENCE Calculator Estimated Delivery Date Method Current WG Current Estimate 03/10/25 LMP (Certain) 29w 1d Other Estimates 03/14/25 Ultrasound #1 28w 4d Expected Delivery Route/Plan vaginal delivery Specific Issues/Plans 29Yr. old G 3 P 1 EDC:03/10/25 by LMP Blood type: AB positive Problem List: 1. Anxiety-no meds/counseling. EDPS-5. Had a therapist. 2. History of UTI and yeast infections 3. LGSIL (age 19), followed by negative results. Pap 08/12/2024=ASCUS, HPV negative, repeat pp. 4. POTS-cardiology evaluation 11/09/2023, echo cardiogram to be scheduled... Testing: Panorama/and or First Tri screen: risk NT scan: 08/26/24 AFP: FAS: echogenic foci noted, left lateral placenta, plan follow up 3rd trimester ultrasound. Glucose: early 28 wk glucose: 107 CBC 1st Tri: 28 wk. 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 Transportation: own Labor, and Concerns: partner/FOB- Tr[place] Labor support: [place] Plan: Feeding Plans: Breast-feeding, did not breastfeed successfully after initial attempt due to multiple concerns control: OB Visit Log Initial Weight: 120 lb Date -?-?-?-?-?-?-?-?-?-?-?-?- EGA Weight Gest Week Fundal Ht Present FHR move Efface % Edema BP PrePreg We Weight GTT -?-?-?-?-?-?-?-?-?-?-?-?- Glucose LV Protein Blood Type 08/10/24 -?-?-?-?-?-?-?-?-?-?-?-?- 9w 5d 128 lb 4 oz (+8 lb 4 oz) 1 28 lb 4 oz -?-?-?-?-?-?-?-?-?-?-?-?- 08/12/24 -?-?-?-?-?-?-?-?-?-?-?-?- 10w 0d 121 lb (+16 oz) 9 110/70 121 lb -?-?-?-?-?-?-?-?-?-?-?-?- 09/11/24 -?-?-?-?-?-?-?-?-?-?-?-?- 14w 2d 126 lb 8 oz (+6 lb 8 oz) 16 150 108/72 126 lb 8 oz -?-?-?-?-?-?-?-?-?-?-?-?- 10/08/24 -?-?-?-?-?-?-?-?-?-?-?-?- 18w 1d 126 lb (+6 lb) 19 150 110/74 126 lb -?-?-?-?-?-?-?-?-?-?-?-?- 11/05/24 -?-?-?-?-?-?-?-?-?-?-?-?- 22w 1d 134 lb (+14 lb) 22 150 active 112/68 134 lb -?-?-?-?-?-?-?-?-?-?-?-?- 12/09/24 -?-?-?-?-?-?-?-?-?-?-?-?- 27w 0d 144 lb (+24 lb) 26 140 active 110/60 144 lb -?-?-?-?-?-?-?-?-?-?-?-?- 12/24/24 -?-?-?-?-?-?-?-?-?-?-?-?- 29w 1d 147 lb (+27 lb) 30 140 active 100/60 147 lb -?-?-?-?-?-?-?-?-?-?-?-?- Notes Visit Date: 12/24/24 Last Updated by: Ynes Guajardo CNM Note author: Ynes Guajardo CNM. 29.1wk. NATHALY. Taking PNV, she reports iron is causing stomach aches. Denies any LOF, VB, abd. pain or urinary symptoms. EPDS-4. Having concerns about her work requirements to be in the IV room for many days, an area of work where she can not have fluids or a bathroom break. She request a note to be exempt from the area. Due to her medical history of POTS, anemia in , note will be given today to excuse her from working in the IV room. Reviewed: Lab work reviewed- .8/.6. glucose 107. Unable to tolerate iron due to GI effects plan to refer her to Hematology for iron infusions. Ultrasound follow up ordered for a echogenic foci. PTL s/s-LOF/Ctx's/VB, when to seek emergent care. discomforts, self help measures. FKC and when to call the office for further eval. Encouraged a healthy well balanced diet, regular walking/exercise in . Hydrate well, 10-12 glasses of water daily. Note given not to work in the IV room today. RTO 2wks. Visit Date: 12/09/24 Last Updated by: Ynes Guajardo CNM Note author: Ynes Guajardo CNM. 27wk. NATHALY. Taking PNV, Doing well with no concerns. Good appetite, stays well hydrated. Denies any LOF, VB, abd. pain or urinary symptoms. History right sciatic pain worsening with . History of anxiety onset after her previous miscarriage, she reports she tends to be an over thinker. Coping well on her own and had a therapist she can contact. Having concerns with the work environment due to restrictions on being able to hydrate in have a break in the IV room further impact her POTS. Reviewed: PTL s/s-LOF/Ctx's/VB, when to seek emergent care. discomforts, self help measures. Treatment options for anxiety, self-help measures, advised to reach out to therapist and schedule appointments for support. 28 week labs ordered. Advised to speak to her fruit or nut farmworker regarding a work note for FMLA due to POTS. Referral to PT placed. FKC and when to call the office for further eval. Encouraged a healthy well balanced diet, regular walking/exercise in . Hydrate well, 10-12 glasses of water daily. RTO 2wks. Visit Date: 11/05/24 Last Updated by: Ynes Guajardo CNM Note author: Ynes Guajardo CNM. 22.1wk. NATHALY. Taking PNV, Doing well with no concerns. Good appetite, trying to hydrate. Denies any LOF, VB, abd. pain or urinary symptoms. Has seen a fruit or nut farmworker this week, is due to have an echo scheduled. Reviewed recent FAS findings of cardiac echogenic foci, is quite anxious about it despite consultation with [facility] provider reassuring her plan a follow up ultrasound, okayed with previously per [facility] department. She reports it is hard for her to hydrate if at all at work particularly the day she has to be scheduled in the IV facility area as she can not drink or go to the bathroom area for 4 hours at a time. Reviewed: PTL s/s-LOF/Ctx's/VB, when to seek emergent care at [facility]. Strongly recommend to complete her labs today. 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 RTO 4 wks. Visit Date: 10/08/24 Last Updated by: Ynes Guajardo CNM Note author: Ynes Guajardo CNM. 18.1wk. NATHALY. Taking PNV, Doing well with no concerns. Good appetite, stays well hydrated. Reports she still has nausea throughout the day but no longer is vomiting. Taking her B6 vitamins. Has felt movements here in there. FAS is scheduled for October 22. Denies any LOF, VB, abd. pain or urinary symptoms. Has not completed her labs. Reviewed: Pap smear results-ascus negative HPV, sign for [facility] Pap/colposcopy results. She had normal Paps following the initial LGSIL which was approximately 10 years ago. PTL s/s-LOF/Ctx's/VB, when to seek emergent care. discomforts, self help measures. Encouraged a healthy well balanced diet, regular walking/exercise in . Hydrate well, 10-12 glasses of water daily. Reminded to register for her labs and have them done tomorrow patient agrees to the plan of care. RTO 4wks. Visit Date: 09/11/24 Last Updated by: Ynes Guajardo CNM Note author: Ynes Guajardo CNM. 14.2wk. NATHALY. Taking PNV, Doing well with concerns: Has daily nausea and vomiting that improves throughout the day able to eat later in the evening. 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 Previous note to excuse work in that area was given for 2 weeks. Stays well hydrated. Denies any LOF, VB, abd. pain or urinary symptoms. Reports 2 episodes of right-sided ligament pain resolved with rest and heat. Reviewed: PTL s/s-LOF/Ctx's/VB, when to seek emergent care. discomforts, self help measures. Note for 30 days to excuse from IV room until improvement. Hydrate well, 10-12 glasses of water daily. FAS ordered for 5 weeks. RTO 4wks. Visit Date: 08/12/24 Last Updated by: Ynes Guajardo CNM Note author: Ynes Guajardo CNM. 10wk. IOB. Taking PNV, B6 and Unisom for nausea, Doing well with no concerns. Good appetite, attempts to stays well hydrated. Denies any LOF, VB, abd. pain or urinary symptoms. She admits to increased yellow discharge without any symptoms. History of LGSIL 1 year ago, previous care in [place]. She reports regular known menstrual cycles lasting 28-31 days has been tracking them for over 2 years. EDC confirmed to LMP 03/10/2024. Reviewed: Pelvic pain/ VB, when to seek emergent care. Delivery and other services at [facility] if decides to transfer care. Pap, GC chlamydia and BV panel obtained await results for plan of care. Encouraged a healthy well balanced diet, regular walking/exercise in . Hydrate well, 10-12 glasses of water daily. Check with health insurance again speak with the supervisor assembly about concerns for tier coverage w/providers and lab services. Panoramic ordered labs pending based on patient's clarification on coverage on where to have her labs drawn. RTO 4wks. Visit Date: 08/10/24 Last Updated by: TYE Oconnor is here today for her Nurse intake. LMP 06/03/24 CLARENCE 03/10/25. CLARENCE by U/S on 08/05/24= 03/14/25. Pt is a , Pt was a surrogate, but miscarried at 8 wks. Current partner is FOB #2. Pt is employed at [employer] and also going to school for [employer]. She has been having issues with nausea, but is keeping well hydrated and eating more frequent, smaller amounts of food. Pt denies any use of MJ or illecits. Discussed labs including CF testing and UDS. Discussed NT u/s at [facility] and orders placed. Discussed Panorama testing, and pt will call Ins co to confirm coverage. Pts first was wnl, and had vaginal delivery with Epidural. Pt aware her u/s and delivery will be at [facility]. pt denies any family Hx of diabetes. Informed pt we recommend flu vaccine in and pt accepts. Discussed how to reach MD after hours and to be seen in [facility] for any OB issues. OB PE scheduled for 08/12/24. Results AMB Urinalysis, Automated UA Leukoctes 0 Jovani/uL Last Edit by ELIUD Simeon on 12/24/24 09:33 UA Nitrite Negative Last Edit by ELIUD Simeon on 12/24/24 09:33 UA Urobilinogen 0 mg/dL Last Edit by ELIUD Simeon on 12/24/24 09:3 3 UA Protein 0.5 mg/dL Last Edit by ELIUD Simeon on 12/24/24 09:33 UA pH 6.0 Last Edit by ELIUD Simeon on 12/24/24 09:33 UA Blood 0 Clayton/uL Last Edit by ELIUD Simeon on 12/24/24 09:33 UA Specific [place] 1.020 Last Edit by ELIUD Simeon on 12/24/24 09:33 UA Ketone Negative Last Edit by ELIUD Simeon on 12/24/24 09:33 UA Bilirubin 0 mg/dL Last Edit by ELIUD Simeon on 12/24/24 09:33 UA Glucose 0 mg/dL Last Edit by ELIUD Simeon on 12/24/24 09:33 Results Reviewed Results Reviewed: Laboratory Last Values Urine pH (Auto) 6.0 12/24/24 09:32 Specific [place] (Auto) 1.020 12/24/24 09:32 Urine Protein (Auto) 0.5 mg/dL 12/24/24 09:32 Glucose (UA)(Auto) 0 mg/dL 12/24/24 09:32 Urine Ketones (Auto) Negative 12/24/24 09:32 Urine Blood (Auto) 0 [place]/uL 12/24/24 09:32 Urine Nitrite (Auto) Negative 12/24/24 09:32 Urine Bilirubin (Auto) 0 mg/dL 12/24/24 09:32 Urine Urobilinogen (Auto) 0 mg/dL 12/24/24 09:32 Leukocyte Esterase (Auto) 0 Jovani/uL 12/24/24 09:32 Coding Level of Care Code [place] Diagnoses Anemia affecting O99.019 echogenic intracardiac focus on ultrasound O28.3 Assessment & Plan Assessment & Plan (1) Anemia affecting : Code(s): O99.019 - Anemia complicating , unspecified trimester Category: Medical (2) echogenic intracardiac focus on ultrasound: Code(s): O28.3 - Abnormal ultrasonic finding on screening of mother Category: Medical Orders: Orders US OB follow up Today O28.3 - Abnormal ultrasonic finding on screening of mother AMB Urinalysis Automated Today Z34.90 - Encounter for supervision of normal , unspecified, unspecified trimester Referrals Hematology & Oncology Referral O99.019 - Anemia complicating , unspecified trimester
[2024-12-24 09:27] VITALS: BP 100/60; BMI 25.2
--- OUTSIDE RECORDS SUMMARY | 2024-12-24 10:30 | XMS_ITS | Encounter Summary ---
Author Organization [facility] Address [address] [place] [address] Care Team Providers Care Sign Maker Name Role Phone Cindy Tapia DNP Primary Care Provider [phone] Encounter Details Date Type Department Care Team (Late st Contact Info) Description 10/10/2018 Scanned Document [facility] [place] [address] [place] [address] External, Provider Social History Tobacco Use Types [...] documented as of this encounter Care Teams Sign Maker Relationship Specialty Start Date End Date Cindy Tapia DNP PCP - General 05/03/17 08/28/22 documented as of this encounter
--- OUTSIDE RECORDS SUMMARY | 2024-12-24 10:30 | XMS_ITS | Encounter Summary ---
Author Organization [facility] Address [address] [id number] Care Team Providers Care Patient Clerical Assistant Name Role Phone Anette Parham BUSINESS EXCELLENCE LEADER Unavailable [phone] Tho Mirza MD Unavailable [phone] Antione Pickett BUSINESS EXCELLENCE LEADER Unavailable [phone] Keely Zelaya APRN Primary Care Provider [phone] [facility] Unava ilable Unavailable Encounter Details Date Type Department Care Team (Late st Contact Info) Description 12/05/2022 Telephone [facility] [place] - Electrophysiology [address] [place] [address] Terry Lakhani MD [address] [place] [address] Social History Tobacco Use Types [...] on filedocumented in this encounter Care Teams Patient Clerical Assistant Relationship Specialty Start Date End Date Keely Zelaya APRN [facility] [place] [address] PCP - General 11/29/22 [facility] [address] [place] [address] PCP - Family Medicine Obstetrics and Gynecology 07/28/23 Anette Parham APRN Nurse Practitioner Gastroenterology 06/15/21 Tho Mirza MD [address] [place] [phone] Indirect Fire Infantryman Cardiovascular Disease 06/15/21 [place] [address] Neurology Neurology 09/25/21 07/28/23 documented as of this encounter
--- OUTSIDE RECORDS SUMMARY | 2024-12-24 10:31 | XMS_ITS | Encounter Summary ---
Author Organization [facility] Address [address] [place] [address] Care Team Providers Care Carton Repairer Name Role Phone Anette Parham SIGNALS OFFICER Unavailable [phone] Tho Mirza MD Unavailable [phone] Antione Pickett SIGNALS OFFICER Unavailable [phone] Keely Zelaya APRN Primary Care Provider [phone] [facility] Women[facility] Unava ilable Unavailable Encounter Details Date Type Department Care Team (Late st Contact Info) Description 12/14/[address] [facility] Heart & Vascular [place] - Electrophysiology [address] [place] [phone] Terry Lakhani MD [address] [place], [place] [id number] Social History Tobacco Use Types Packs/Day Years [...] on filedocumented in this encounter Care Teams Carton Repairer Relationship Specialty Start Date End Date Keely Zelaya APRN [facility] [place] [address] PCP - General 11/29/22 [facility] [address] [place] [address] PCP - Family Medicine Obstetrics and Gynecology 07/28/23 Anette Parham APRN Nurse Practitioner Gastroenterology 06/15/21 Tho Mirza MD [address] [place] [phone] Crm Consultant Cardiovascular Disease 06/15/21 [place] [address] Neurology Neurology 09/25/21 07/28/23 documented as of this encounter
--- OUTSIDE RECORDS SUMMARY | 2024-12-24 10:31 | XMS_ITS | Encounter Summary ---
Author Organization [facility] Address [address] [place] [address] Care Team Providers Care Homebirth Midwife Name Role Phone Cindy Tapia DNP Primary Care Provider [phone] Encounter Details Date Type Department Care Team (Late st Contact Info) Description 09/08/2020 Scanned Document [facility] [place] [address] [place] [address] External, Provider Social History Tobacco Use Types [...] documented as of this encounter Care Teams Homebirth Midwife Relationship Specialty Start Date End Date Cindy Tapia DNP PCP - General 05/03/17 08/28/22 documented as of this encounter
--- OUTSIDE RECORDS SUMMARY | 2024-12-24 10:31 | XMS_ITS | Encounter Summary ---
Author Organization [facility] Address [address] [place] [address] Care Team Providers Care Manager Lsw Name Role Phone Cindy Tapia DNP Primary Care Provider Encounter Details Date Type Department Care Team (Late st Contact Info) Description 06/15/2021 Scanned Document [facility] [place] [address] [place] [address] External, Provider Social History Tobacco Use Types [...] as of this encounter Care Teams Manager Lsw Relationship Specialty Start Date End Date Cindy Tapia DNP PCP - General 05/03/17 08/28/22 documented as of this encounter
--- OUTSIDE RECORDS SUMMARY | 2024-12-24 10:31 | XMS_ITS | Encounter Summary ---
Author Organization [facility] Address [address] [id number] Care Team Providers Care Malt Liquors Sales Supervisor Name Role Phone Cindy Tapia APRN Primary Care Provider [phone] Anette Parham BARREL BRIDGE ASSEMBLER Unavailable [phone] Tho Mirza MD Unavailable [phone] Antione Pickett BARREL BRIDGE ASSEMBLER Unavailable [phone] Keely Zelaya APRN Primary Care Provider [phone] [facility] Department Of Women's Unava ilable Unavailable Encounter Details Date Type Department Care Team (Late st Contact Info) Description 10/27/2021 Scanned Document [facility] [address] [place] [phone] Bell Moss MD [address] [place] [phone] Social History Tobacco Use Types Packs/Day [...] on filedocumented in this encounter Care Teams Malt Liquors Sales Supervisor Relationship Specialty Start Date End Date Cindy Tapia APRN PCP - General Family Medicine 10/06/18 11/28/22 Keely Zelaya APRN [address] [place] [address] PCP - General 11/29/22 [facility] [address] [place] [address] PCP - Family Medicine Obstetrics and Gynecology 07/28/23 Anette Parham APRN Nurse Practitioner Gastroenterology 06/15/21 Tho Mirza MD [address] [place] [phone] Juvenile Justice Specialist Cardiovascular Disease 06/15/21 [place] [address] Neurology Neurology 09/25/21 07/28/23 documented as of this encounter
--- OUTSIDE RECORDS SUMMARY | 2024-12-24 10:31 | XMS_ITS | Encounter Summary ---
Author Organization [facility] Address [address] [place] [address] Care Team Providers Care Telegraph Service Rater Name Role Phone Cindy Tapia DNP Primary Care Provider [phone] Encounter Details Date Type Department Care Team (Late st Contact Info) Description 09/08/2021 Scanned Document [facility] [place] [address] [place] [address] External, Provider Social History Tobacco Use Types [...] documented as of this encounter Care Teams Telegraph Service Rater Relationship Specialty Start Date End Date Cindy Tapia DNP PCP - General 05/03/17 08/28/22 documented as of this encounter
--- OUTSIDE RECORDS SUMMARY | 2024-12-24 10:31 | XMS_ITS | Encounter Summary ---
Author Organization [facility] Address [address] [place] [address] Care Team Providers Care Sales Development Executive Name Role Phone Cindy Tapia DNP Primary Care Provider [phone] Encounter Details Date Type Department Care Team (Late st Contact Info) Description 08/11/2021 Scanned Document [facility] [place] [address] [place] [address] External, Provider Social History Tobacco Use Types [...] documented as of this encounter Care Teams Sales Development Executive Relationship Specialty Start Date End Date Cindy Tapia DNP PCP - General 05/03/17 08/28/22 documented as of this encounter
--- OUTSIDE RECORDS SUMMARY | 2024-12-24 10:31 | XMS_ITS | Encounter Summary ---
Author Organization [facility] Address [address] [place] [address] Care Team Providers Care Cod Clerk Name Role Phone Cindy Tapia DNP Primary Care Provider [phone] Encounter Details Date Type Department Care Team (Late st Contact Info) Description 08/05/2021 Epic[facility]Hand Encounter [facility] [place] [address] [place] [address] Yue Barton MD [address] [place] [address] Social History Tobacco Use Types Packs/Day Years [...] documented as of this encounter Care Teams Cod Clerk Relationship Specialty Start Date End Date Cindy Tapia DNP PCP - General 05/03/17 08/28/22 documented as of this encounter
--- OUTSIDE RECORDS SUMMARY | 2024-12-24 10:33 | XMS_ITS | Encounter Summary ---
Author Organization [facility] Address [address] [place] [address] Care Team Providers Care Hoop Flaring Machine Operator Name Role Phone Cindy Tapia DNP Primary Care Provider Encounter Details Date Type Department Care Team (Late st Contact Info) Description 07/13/2022 Scanned Document [facility] [place] [address] [place] [address] External, Provider Social History Tobacco Use Types [...] documented as of this encounter Care Teams Hoop Flaring Machine Operator Relationship Specialty Start Date End Date Cindy Tapia DNP PCP - General 05/03/17 08/28/22 documented as of this encounter
--- OUTSIDE RECORDS SUMMARY | 2024-12-24 10:33 | XMS_ITS | Clinical Summary ---
Author Organization [facility], Located Within [facility] Address [address] [place] [address] Care Team Providers Care Web Content Executive Name Role Phone Anette Parham APRN Unavailable [phone] Tho Mirza MD Unavailable [phone] Keely Zelaya APRN Primary Care Provider [phone] [facility] Department Of Women's Unava ilable [...] Date/Time Associated Diagnosis Comments THINPREP PAP TEST (MULTIMEDIA PROGRAMMER) WITH HPV REFLEX, GC/CT Routine 04/11/2022 3:59 PM EDT from Last 3 Months or Most Recently Relevant to Health Maintenance Results * ThinPrep Pap Test (Chief Psychology) with HPV Reflex, GC/CT (04/11/2022 3:59 PM EDT) Report Report [facility] Comment: Final Gynecological Cytology Report ThinPrep Pap Test with HPV Reflex, GC/Chlamydia SPECIMEN ADEQUACY: SATISFACTORY FOR EVALUATION; ENDOCERVICAL/TRANSFORMATION ZONE COMPONENT PRESENT. INTERPRETATION: NEGATIVE FOR INTRAEPITHELIAL LESION OR MALIGNANCY. Electronically Signed: ??Tho [place], [place](ASCP) CLINICAL INFORMATION: LMP: NG Specimen Source: ??Cervix, Endocervix CPT Codes: 90765 ICD Codes: Z01.419 Other 04/11/2022 3:59 PM EDT 04/12/2022 2:01 AM EDT Talha Zurita MD LAB AMB PATH/CYTO ORDERABLES Performing Organization Address City/State/[facility] Co de Phone Number [facility] [address] [place], [place] from Last 3 Months or Most Recently Relevant to Health Maintenance Advance Directives * Full Code (Latest Code Status on File) Date Activated Date Inactivated Comments 07/28/2023 11:08 PM * Full Code Date Activated Date Inactivated Comments 07/28/2023 10:51 PM 07/28/2023 11:08 PM Care Teams Web Content Executive Relationship Specialty Start Date End Date Keely Zelaya APRN [address] [place] [address] PCP - General 11/29/22 [facility] Department Of Women's [address] [place] [address], [place] [address] PCP - Family Medicine Obstetrics and Gynecology 07/28/23 Anette Parham APRN Nurse Practitioner Gastroenterology 06/15/21 Tho Mirza MD [address] [place] [phone] Wire Frame Lampshade Maker Cardiovascular Disease 06/15/21
--- OUTSIDE RECORDS SUMMARY | 2024-12-24 10:33 | XMS_ITS | Encounter Summary ---
Author Organization [facility] Address [address] [place] [address] Care Team Providers Care Controller Repairer And Tester Name Role Phone Cindy Tapia DNP Primary Care Provider [phone] Encounter Details Date Type Department Care Team (Late st Contact Info) Description 06/04/2017 Scanned Document [facility] [place] [address] [place] [address] Cindy Tapia DNP [address] [phone] Social History Tobacco Use Types Packs/Day Years [...] on filedocumented in this encounter Care Teams Controller Repairer And Tester Relationship Specialty Start Date End Date Cindy Tapia DNP PCP - General 05/03/17 08/28/22 documented as of this encounter
--- OUTSIDE RECORDS SUMMARY | 2024-12-24 10:33 | XMS_ITS | Encounter Summary ---
Author Organization [facility] Address [address] [place] [address] Care Team Providers Care Sr. Operations Manager Name Role Phone Cindy Tapia DNP Primary Care Provider [phone] Encounter Details Date Type Department Care Team (Late st Contact Info) Description 10/19/2021 Scanned Document [facility] [place] [address] [place] [address] External, Provider Social History Tobacco Use Types [...] documented as of this encounter Care Teams Sr. Operations Manager Relationship Specialty Start Date End Date Cindy Tapia DNP PCP - General 05/03/17 08/28/22 documented as of this encounter
--- OUTSIDE RECORDS SUMMARY | 2024-12-24 10:33 | XMS_ITS | Encounter Summary ---
Author Organization [facility] Address [address] [place] [address] Care Team Providers Care Motor Coach Tour Operator Name Role Phone Cindy Tapia DNP Primary Care Provider [phone] Encounter Details Date Type Department Care Team (Late st Contact Info) Description 06/05/2017 Scanned Document [facility] [place] [address] [place] [address] External, Provider Social History Tobacco Use Types [...] on filedocumented in this encounter Care Teams Motor Coach Tour Operator Relationship Specialty Start Date End Date Cindy Tapia DNP PCP - General 05/03/17 08/28/22 documented as of this encounter
--- OUTSIDE RECORDS SUMMARY | 2024-12-24 10:33 | XMS_ITS | Encounter Summary ---
Author Organization [facility] Address [address] [place] [address] Care Team Providers Care Vice President Digital Strategist Name Role Phone Cindy Tapia DNP Primary Care Provider [phone] Encounter Details Date Type Department Care Team (Late st Contact Info) Description 05/22/2017 Scanned Document [facility] [place] [address] [place] [address] Randee Rodarte MD [address] [place] [address] Social History Tobacco Use Types [...] on filedocumented in this encounter Care Teams Vice President Digital Strategist Relationship Specialty Start Date End Date Cindy Tapia DNP PCP - General 05/03/17 08/28/22 documented as of this encounter
--- OUTSIDE RECORDS SUMMARY | 2024-12-24 10:33 | XMS_ITS | Clinical Summary ---
Author Organization [facility] Address [address] [place] [address] Care Team Providers Care Director Of Product Design Name Role Phone Randee Rodarte MD Primary Care Provider [phone] Randee Rodarte MD Unavailable [phone] Allergies Active Allergy Reactions Criticality Noted Date Comments Amoxil 01/15/2014 [facility] Comment: Reaction Date: 28May2013; Active Problems Problem [...] age to complete this topic Care Teams Director Of Product Design Relationship Specialty Start Date End Date Randee Rodarte MD [address] [place] [address] PCP - General 05/27/23 Randee Rodarte MD [facility] [place] [address] PCP - Backup PCP Pediatrics 11/21/23
--- OUTSIDE RECORDS SUMMARY | 2024-12-24 10:33 | XMS_ITS | Encounter Summary ---
Author Organization [facility] [employer] [facility] Address [address] [place] [address] Care Team Providers Care Embedded Case Manager Name Role Phone Cindy Tapia DNP Primary Care Provider [phone] Encounter Details Date Type Department Care Team (Late st Contact Info) Description 10/09/2012 Abstract Pediatric Nephrology [address] [place] [address], [address] [place] [address] Crys Chen MD [address] [place] [address] UTI (urinary tract infection) (Primary [...] ureter documented in this encounter Care Teams Embedded Case Manager Relationship Specialty Start Date End Date Cindy Tapia DNP PCP - General 05/03/17 08/28/22 documented as of this encounter
--- OUTSIDE RECORDS SUMMARY | 2024-12-24 10:33 | XMS_ITS | Encounter Summary ---
Author Organization [facility] Address [address] [place] [address] Care Team Providers Care Stone Layer Name Role Phone Thuan Hernandez MD Primary Care Provider Cindy Tapia APRN Primary Care Provider [phone] Anette Parham SOFTWARE INSTALLATION ENGINEER Unavailable [phone] Tho Mirza MD Unavailable Antione Pickett SOFTWARE INSTALLATION ENGINEER Unavailable [phone] Keely Zelaya APRN Primary Care Provider [phone] [facility] Department Of Women's Unava ilable Unavailable Encounter Details Date Type Department Care Team (Late st Contact Info) Description 10/10/2016 Scanned Document [address] [address] Provider, MD [place] [address] [place] [address] Social History Tobacco Use Types Packs/Day Years [...] on filedocumented in this encounter Care Teams Stone Layer Relationship Specialty Start Date End Date Thuan Hernandez MD [address] [place] [address] PCP - General 07/17/17 10/05/18 Cindy Tapia, SOFTWARE INSTALLATION ENGINEER [address] [place] [address] PCP - General Family Medicine 10/06/18 11/28/22 Keely Zelaya APRN [address] [place], [place] [id number] PCP - General 11/29/22 [facility] [address] [place], [place] [phone] PCP - Family Medicine Obstetrics and Gynecology 07/28/23 Anette Parham, SOFTWARE INSTALLATION ENGINEER [address] [place] [address] Nurse Practitioner Gastroenterology 06/15/21 Tho Mirza MD [address] [place] [phone] Coil Binder Cardiovascular Disease 06/15/21 Antione Pickett, SOFTWARE [place] [address] Neurology Neurology 09/25/21 07/28/23 documented as of this encounter
--- OUTSIDE RECORDS SUMMARY | 2024-12-24 10:33 | XMS_ITS | Encounter Summary ---
Author Organization [facility] Address [address] [place] [address] Care Team Providers Care Senior Engineering Team Leader Name Role Phone Cindy Tapia DNP Primary Care Provider Encounter Details Date Type Department Care Team (Late st Contact Info) Description 09/25/2021 Scanned Document [facility] [place] [address] [place] [address] External, Provider Social History Tobacco Use Types [...] as of this encounter Care Teams Senior Engineering Team Leader Relationship Specialty Start Date End Date Cindy Tapia DNP PCP - General 05/03/17 08/28/22 documented as of this encounter
--- OUTSIDE RECORDS SUMMARY | 2024-12-24 10:34 | XMS_ITS | Encounter Summary ---
Author Organization [facility] Address [address] [place] [address] Care Team Providers Care Project Eng Name Role Phone Cindy Tapia DNP Primary Care Provider [phone] Encounter Details Date Type Department Care Team (Late st Contact Info) Description 09/04/2018 Scanned Document [facility] [place] [address] [place] [address] External, Provider Social History Tobacco Use Types [...] on filedocumented in this encounter Care Teams Project Eng Relationship Specialty Start Date End Date Cindy Tapia DNP PCP - General 05/03/17 08/28/22 documented as of this encounter
--- OUTSIDE RECORDS SUMMARY | 2024-12-24 10:34 | XMS_ITS | Encounter Summary ---
Author Organization [facility] Address [address] [place] [address] Care Team Providers Care Appeals Nurse Name Role Phone Randee Rodarte MD Primary Care Provider [phone] Randee Rodarte MD Unavailable [phone] Encounter Details Date Type Department Care Team (Late st Contact Info) Description 08/01/2012 Orders Only [facility] [address] [place] [address] Social History Tobacco Use Types Packs/Day Years [...] on filedocumented in this encounter Care Teams Appeals Nurse Relationship Specialty Start Date End Date Randee Rodarte MD [address] [place] [address] PCP - General 05/27/23 Randee Rodarte MD [address] [place] [address] PCP - Backup PCP Pediatrics 11/21/23 documented as of this encounter
--- OUTSIDE RECORDS SUMMARY | 2024-12-24 10:34 | XMS_ITS | Clinical Summary ---
Author Organization [facility] Address [address] [place] [address] Care Team Providers Care Machinist 2Nd Shift Name Role Phone Provider, [facility] Unavailab le Unavailable Keely Zelaya APRN Primary Care Provider [phone] Keely Zelaya APRN Unavailable [phone] Allergies Active Allergy Reactions Criticality Noted Date [...] Vitamin D supplementation is reasonable in the [facility] between July and January - Protect [...] living will and is available on the [place] Acid Strength InspectorComparative Sociology Professor's Office website: https://portal.tn.gov/AG/Health-Issues/Cohxvbklbzbj-Vwgwsv-Jjla-Laws HEALTH MAINTENANCE Fasting labs Cervical cancer screening: [...] 9:50 PM EST): Referred to genetic counseling [facility] 09/12/2020 Immunizations Name Administration Dates Next Due [...] 4:13 PM EDT) Case Report Cytology ?Case: [id number] ? Authorizing Provider: ??Saad Ventura MD ?Collected: ? 02/26/2024 1613 ? Ordering Location: ? [facility] Department of Received: ?02/27/2024 0813 ? [facility] [place] ? First Screen: ?Peg, Arabella, BS CT ? (ASCP) ? Pathologist: ? Suzette Espinosa MD ? Specimen: ?Cytopathology, screening PAP test, Cervix ? 03/06/2024 1:18 PM EDT [facility] Clinical Information Routine screening 03/06/2024 1:18 PM EDT [facility] LMP Not provided 03/06/2024 1:18 PM EDT [facility] Interpretation Low grade squamous intraepithelial lesion(A) 03/06/2024 1:18 PM EDT [facility] Specimen Adequacy Satisfactory for evaluation, endocervical/shields sformation zone component present 03/06/2024 1:18 PM EDT [facility] Specimen Processing Thin Prep pap with manual screen/rescreen or review 03/06/2024 1:18 PM EDT [facility] Embedded Images 1:18 PM EDT [facility] Brushing Cervix uteri structure / Unknown Non-blood Collection / Unknown 02/26/2024 4:13 PM EDT 02/27/2024 8:13 AM EDT Saad Ventura MD LAB PATHOLOGY/CYTOLOGY ORDERABLE S Final Result [facility] [address] [place] [address], [place] [phone] * HEPATITIS C AB W/REFL TO HCV RNA, QN, PCR (Q) (10/07/2023 1:18 PM EST) [facility] HEPATITIS C ANTIBODY NON-REACT SARAH NON-REACT SARAH [employer] Comment: HCV antibody was non-reactive. There is no laboratory evidence of HCV infection. In most cases, no further action is required. However, if recent HCV exposure is suspected, a test for HCV RNA (test code 99020) is suggested. For additional information please refer to http://education.Digital Bloom.Aprimo/faq/XQJ25g9 (This link is being provided for informational/ educational purposes only.) Blood 10/07/2023 1:18 PM EST 10/07/2023 1:26 PM EST Narrative [facility] - 10/09/2023 12:17 PM EST FASTING:NO PATIENT REFUSED SOME TESTING; PATIENT ENCOURAGED TO RETURN. FASTING: NO Keely Zelaya APRN [facility]B [facility] LAB ORDERABLES Final Result [facility] [address] [place] [phone] * HIV 1/2 ANTIGEN/ANTIBODY,FOURTH GENERATION W/RFL (Q) (10/07/2023 1:18 PM EST) [facility] HIV AG/AB, 4TH GEN NON-REACT SARAH NON-REACT SARAH Soccer Manager-Soccer Manager Comment: HIV-1 antigen and HIV-1/HIV-2 antibodies were [...] ?? For additional information please refer to http://education.Labfolder/faq/NNO715 (This link is being provided for informational/ [...] LAB ORDERABLES Final Result Performing Organization Address City/State/[facility] Co de Phone Number [facility] [address] [place] [phone] from Last 3 Months or Most Recently Relevant to Health Maintenance Insurance [facility] Care Teams Machinist 2Nd Shift Relationship Specialty Start Date End Date Keely Zelaya APRN [address] [place] [address] PCP - General Internal Medicine 09/17/22 Keely Zelaya APRN [address] [place] [address] PCP - Insurance Payer PCP 08/05/23 Provider, [facility] 07/31/22
--- OUTSIDE RECORDS SUMMARY | 2024-12-24 10:34 | XMS_ITS | Encounter Summary ---
Author Organization [facility] Address [address] [place] [address] Care Team Providers Care Dry Goods Inspector Name Role Phone Cindy Tapia DNP Primary Care Provider Encounter Details Date Type Department Care Team (Late st Contact Info) Description 07/25/2018 Scanned Document [facility] [place] [address] [place] [address] External, Provider Social History Tobacco Use Types [...] on filedocumented in this encounter Care Teams Dry Goods Inspector Relationship Specialty Start Date End Date Cindy Tapia DNP PCP - General 05/03/17 08/28/22 documented as of this encounter
--- OUTSIDE RECORDS SUMMARY | 2024-12-24 10:34 | XMS_ITS | Encounter Summary ---
Author Organization [facility] Address [address] [place] [address] Care Team Providers Care Plate Slitter And Inspector Name Role Phone Cindy Tapia DNP Primary Care Provider [phone] Encounter Details Date Type Department Care Team (Late st Contact Info) Description 05/19/2018 Scanned Document [facility] [place] [address] [place] [address] Cindy Tapia DNP [address] [phone] Social History Tobacco Use Types Packs/Day Years [...] on filedocumented in this encounter Care Teams Plate Slitter And Inspector Relationship Specialty Start Date End Date Cindy Tapia DNP PCP - General 05/03/17 08/28/22 documented as of this encounter
--- OUTSIDE RECORDS SUMMARY | 2024-12-24 10:34 | XMS_ITS | Encounter Summary ---
Author Organization [facility] Address [address] [place] [address] Care Team Providers Care Guidance Director Name Role Phone iCndy Tapia APRN Primary Care Provider Anette Parham SENIOR ESCROW OFFICER Unavailable [phone] Tho Mirza MD Unavailable [phone] Antione Pickett SENIOR ESCROW OFFICER Unavailable Keely Zelaya APRN Primary Care Provider [phone] [facility] Department Of Women's Unava ilable Unavailable Encounter Details Date Type Department Care Team (Late st Contact Info) Description 08/14/2021 Scanned Document [facility] Neurology [place] [address] [place] [address] [place] [address] Social History Tobacco Use Types Packs/Day Years [...] on filedocumented in this encounter Care Teams Guidance Director Relationship Specialty Start Date End Date Cindy Tapia APRN PCP - General Family Medicine 10/06/18 11/28/22 Keely Zelaya APRN [address] [place] [address] PCP - General 11/29/22 [facility] [address] [place] [address] PCP - Family Medicine Obstetrics and Gynecology 07/28/23 Anette Parham APRN Nurse Practitioner Gastroenterology 06/15/21 Tho Mirza MD [address] [place] [phone] Fixed Income Portfolio Manager Cardiovascular Disease 06/15/21 [place] [address] Neurology Neurology 09/25/21 07/28/23 documented as of this encounter
--- OUTSIDE RECORDS SUMMARY | 2024-12-24 10:34 | XMS_ITS | Encounter Summary ---
Author Organization [facility] Address [address] [place] [address] Care Team Providers Care Pump Station Operator Name Role Phone Cindy Tapia DNP Primary Care Provider [phone] Encounter Details Date Type Department Care Team (Late st Contact Info) Description 08/28/2018 Scanned Document [facility] [place] [address] [place] [address] External, Provider Social History Tobacco Use Types [...] on filedocumented in this encounter Care Teams Pump Station Operator Relationship Specialty Start Date End Date Cindy Tapia DNP PCP - General 05/03/17 08/28/22 documented as of this encounter
--- OUTSIDE RECORDS SUMMARY | 2024-12-24 10:34 | XMS_ITS | Encounter Summary ---
Author Organization [facility] [employer] [facility] Address [address] [place] [address] Care Team Providers Care Bank Vault Custodian Name Role Phone Cindy Tapia MALDONADO Primary Care Provider [phone] Encounter Details Date Type Department Care Team (Late st Contact Info) Description 10/29/2017 Transcribed Orders Employee Health [address] [phone] Iesha Ludwig MD [address] [phone] (Work) Physical exam, pre-employment (Primary [...] IgG Positive Positive 10/29/2017 2:51 PM EST [facility] Mumps Antibody, IgG Interval 3.44 >=0.50 10/29/2017 2:51 PM EST [facility] Blood specimen (specimen) Venipuncture / Unknown 10/29/2017 9:10 AM EST 10/29/2017 12:[address] [facility] - 10/29/2017 2:51 PM EST Reference Interval [...] Ludwig MD LAB BLOOD ORDERABLES Final Result [facility] [address] [place] [address] * Varicella zoster antibody, IgG (10/29/2017 9:10 AM EST) Varicella Zoster Antibody, IgG Numeric 750 >165 IV 10/29/2017 3:20 PM EST [facility] Varicella Zoster Antibody, IgG Positive Positive 10/29/2017 3:20 PM EST [facility] Comment: Reference Interval Interpretation: ? < 135 [...] Ludwig MD LAB BLOOD ORDERABLES Final Result [facility] [address] [place] [address] * Rubella antibody, IgG (BH GH L LMW YH) (10/29/2017 9:10 AM EST) Rubella Antibody, IgG Positive Positive 10/29/2017 2:20 PM EST [facility] Rubella Antibody, IgG Interval 77.3 >=10.0 Index 10/29/2017 2:20 PM EST [facility] Blood specimen (specimen) Venipuncture / Unknown 10/29/2017 9:10 AM EST 10/29/2017 12:59 PM EST Narrative [facility] - 10/29/2017 2:20 PM EST Reference [...] Ludwig MD LAB BLOOD ORDERABLES Final Result [facility] [address] [place] [address] * Measles (Rubeola) antibody, IgG (10/29/2017 9:10 AM EST) Measles IgG Initial Result >300.0 >=30.0 AU/mL 10/29/2017 3:20 PM EST [facility] Measles IgG Positive Positive 10/29/2017 3:20 PM EST [facility] Comment: Reference Interval Interpretation: ? < [...] Ludwig MD LAB BLOOD ORDERABLES Final Result [facility] [address] [place] [address] documented in this encounter Visit Diagnoses Diagnosis Physical exam, pre-employment- Primary Health examination of defined subpopulation documented in this encounter Care Teams Bank Vault Custodian Relationship Specialty Start Date End Date Cindy Tapia DNP PCP - General 05/03/17 08/28/22 documented as of this encounter
--- OUTSIDE RECORDS SUMMARY | 2024-12-24 10:34 | XMS_ITS | Encounter Summary ---
Author Organization [facility] Address [address] [place] [address] Care Team Providers Care Insurance Solicitor Name Role Phone Cindy Tapia DNP Primary Care Provider [phone] Encounter Details Date Type Department Care Team (Late st Contact Info) Description 08/05/2018 Scanned Document [facility] [place] [address] [place] [address] External, Provider Social History Tobacco Use Types [...] on filedocumented in this encounter Care Teams Insurance Solicitor Relationship Specialty Start Date End Date Cindy Tapia DNP PCP - General 05/03/17 08/28/22 documented as of this encounter
== END 2024-12-24 10:14 | disposition home or self-care (01) ==
LOC: HO.HWS 09:24
PROVIDERS: PCP Registered Nurse; Visit Provider Advanced Practice Midwife
DX: Z34.90 Encounter for supervision of normal pregnancy, unspecified, unspecified trimester (principal)
CPT/HCPCS: 25942; S3005

== ENCOUNTER → 2024-12-24 09:24 | Outpatient (BNVA) | payer OTHER, SELFPAY | PROVIDERS: PCP Registered Nurse; Visit Provider Advanced Practice Midwife | DX: O99.013 Anemia complicating pregnancy, third trimester (principal); D64.9 Anemia, unspecified; O28.3 Abnormal ultrasonic finding on antenatal screening of mother; Z3A.29 29 weeks gestation of pregnancy | CPT/HCPCS: 81003; 99212 ==

== ENCOUNTER → 2025-01-01 10:21 | Outpatient (BNV) | payer OTHER, SELFPAY | PROVIDERS: PCP Registered Nurse; Referring Provider Advanced Practice Midwife; Visit Provider Internal Medicine | DX: O99.011 Anemia complicating pregnancy, first trimester (principal) | CPT/HCPCS: 99204 ==

== ENCOUNTER 2025-01-07 08:53 | Outpatient (AMB) | payer OTHER, SELFPAY ==
--- NOTE | 2025-01-07 08:54 | A.OFFVISPN_ITS ---
Intake Vital Signs 01/07/25 09:00 Height 5 ft 4 in Weight 150 lb BMI 25.7 BP 98/60 Intake Visit Reasons: 2 week follow up/Ok per Ynes Allergies amoxicillin Allergy (Verified 01/07/25 08:54) Rash Patient : Yes PFSH Medical History (Updated 01/01/25 @ 10:42 by Shirin Squires MD) Anemia affecting Right sciatic nerve pain Dizziness Trigeminal neuralgia POTS (postural orthostatic tachycardia syndrome) Supervision of normal in second trimester LGSIL on Pap smear of cervix Animal bite Surgical History (Updated 01/01/25 @ 10:42 by Shirin Squires MD) Ovarian torsion Thomson teeth removed Family History (Updated 01/01/25 @ 10:36 by Macey Granda) Mother Hx of malignant neoplasm of female breast Father Hx of deep venous thrombosis Brother Anxiety and depression Sister Anxiety and depression Other Breast cancer Social History Household Members: Spouse, Significant Other and Children Alcohol intake: former Patient Tobacco Use Status: Never used Tobacco Current occupational status: employed Gender identity: Female Female Reproductive History Menstrual Age of Menarche: 15 History History 3 Elective abortions 0 Para 1 Spontaneous abortions 1 Hx # Term Pregnancies 1 Ectopic pregnancies 0 Hx # Pregnancies 0 Multiple births 0 Past Pregnancies Del. Date GA/Weeks Outcome Route Wt Inf Gender Labor Gena Anesthesia Location Provider Complicate 10/03/14 39 live - full term vaginal delivery 7 lb 13 oz Male 16 hours epidural [facility] none 07/12/22 8 spontaneous Visit [facility] Calculator Estimated Delivery Date Method Current WG Current Estimate 03/10/25 LMP (Certain) 31w 1d Other Estimates 03/14/25 Ultrasound #1 30w 4d Expected Delivery Route/Plan vaginal delivery Specific Issues/Plans 29Yr. old G 3 P 1 EDC:03/10/25 by LMP Blood type: AB positive Problem List: 1. Anxiety-no meds/counseling. EDPS-5. Had a therapist. 2. History of UTI and yeast infections 3. LGSIL (age 19), followed by negative results. Pap 08/12/2024=ASCUS, HPV negative, repeat pp. 4. POTS-cardiology evaluation 11/09/2023, echo cardiogram to be scheduled... Testing: Panorama/and or First Tri screen: risk NT scan: 08/26/24 AFP: FAS: echogenic foci noted, left lateral placenta, plan follow up 3rd trimester ultrasound. Glucose: early 28 wk glucose: 107 CBC 1st Tri: 28 wk. 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 Transportation: own Labor, and Concerns: partner/FOB- Trino Labor support: Trino Plan: Feeding Plans: Breast-feeding, did not breastfeed successfully after i nitial attempt due to multiple concerns control: OB Visit Log Initial Weight: 120 lb Date -?-?-?-?-?-?-?-?-?-?-?-?- EGA Weight Gest Week Fundal Ht Present FHR move Efface % Edema BP PrePreg We Weight GTT -?-?-?-?-?-?-?-?-?-?-?-?- Glucose LV Protein Blood Type 08/10/24 -?-?-?-?-?-?-?-?-?-?-?-?- 9w 5d 128 lb 4 oz (+8 lb 4 oz) 1 28 lb 4 oz -?-?-?-?-?-?-?-?-?-?-?-?- 08/12/24 -?-?-?-?-?-?-?-?-?-?-?-?- 10w 0d 121 lb (+16 oz) 9 110/70 121 lb -?-?-?-?-?-?-?-?-?-?-?-?- 09/11/24 -?-?-?-?-?-?-?-?-?-?-?-?- 14w 2d 126 lb 8 oz (+6 lb 8 oz) 16 150 108/72 126 lb 8 oz -?-?-?-?-?-?-?-?-?--?-?-?- 10/08/24 -?-?-?-?-?-?-?-?-?-?-?-?- 18w 1d 126 lb (+6 lb) 19 150 110/74 126 lb -?-?-?-?-?--?-?-?-?-?-?-?- 11/05/24 -?-?-?-?-?-?-?-?-?-?-?-?- 22w 1d 134 lb (+14 lb) 22 150 active 112/68 134 lb -?-?-?-?-?-?-?-?-?-?-?-?- 12/09/24 -?-?-?-?-?-?-?-?-?-?-?-?- 27w 0d 144 lb (+24 lb) 26 140 active 110/60 144 lb -?-?-?-?-?-?-?-?-?-?-?-?- 12/24/24 -?-?-?-?-?-?-?-?-?-?-?-?- 29w 1d 147 lb (+27 lb) 30 140 active 100/60 147 lb -?-?-?-?-?-?-?-?-?-?-?-?- 01/07/25 -?-?-?-?-?-?-?-?-?-?-?-?- 31w 1d 150 lb (+30 lb) 31 140 active 98/60 150 lb -?-?-?-?-?-?-?-?-?-?-?-?- Notes Visit Date: 01/07/25 Last Updated by: Ynes Guajardo CNM Note author: Ynes Guajardo CNM. 31.1wk. NATHALY. Taking PNV, Doing well with no concerns. Good appetite, stays well hydrated. Denies any LOF, VB, abd. pain or urinary symptoms. Reviewed: PTL s/s-LOF/Ctx's/VB, when to seek emergent care. discomforts, self help measures. FKC and when to call the office for further eval. Encouraged a healthy well balanced diet, regular walking/exercise in . Hydrate well, 10-12 glasses of water daily. Plan Tdap at next visit RTO 2wks. Visit Date: 12/24/24 Last Updated by: Ynes Guajardo CNM Note author: Ynes Guajardo CNM. 29.1wk. NATHALY. Taking PNV, she reports iron is causing stomach aches. Denies any LOF, VB, abd. pain or urinary symptoms. EPDS-4. Having concerns about her work requirements to be in the IV room for many days, an area of work where she can not have fluids or a bathroom break. She request a note to be exempt from the area. Due to her medical history of POTS, anemia in , note will be given today to excuse her from working in the IV room. Reviewed: Lab work reviewed- 6. glucose 107. Unable to tolerate iron due to GI effects plan to refer her to Hematology for iron infusions. Ultrasound follow up ordered for a echogenic foci. PTL s/s-LOF/Ctx's/VB, when to seek emergent care. discomforts, self help measures. FKC and when to call the office for further eval. Encouraged a healthy well balanced diet, regular walking/exercise in . Hydrate well, 10-12 glasses of water daily. Note given not to work in the IV room today. RTO 2wks. Visit Date: 12/09/24 Last Updated by: Ynes Guajardo CNM Note author: Ynes Guajardo CNM. 27wk. NATHALY. Taking PNV, Doing well with no concerns. Good appetite, stays well hydrated. Denies any LOF, VB, abd. pain or urinary symptoms. History right sciatic pain worsening with . History of anxiety onset after her previous miscarriage, she reports she tends to be an over thinker. Coping well on her own and had a therapist she can contact. Having concerns with the work environment due to restrictions on being able to hydrate in have a break in the IV room further impact her POTS. Reviewed: PTL s/s-LOF/Ctx's/VB, when to seek emergent care. discomforts, self help measures. Treatment options for anxiety, self-help measures, advised to reach out to therapist and schedule appointments for support. 28 week labs ordered. Advised to speak to her can crimper regarding a work note for FMLA due to POTS. Referral to PT placed. [facility] and when to call the office for further eval. Encouraged a healthy well balanced diet, regular walking/exercise in . Hydrate well, 10-12 glasses of water daily. RTO 2wks. Visit Date: 11/05/24 Last Updated by: Ynes Guajardo CNM Note author: Ynes Guajardo CNM. 22.1wk. NATHALY. Taking PNV, Doing well with no concerns. Good appetite, trying to hydrate. Denies any LOF, VB, abd. pain or urinary symptoms. Has seen a can crimper this week, is due to have an echo scheduled. Reviewed recent FAS findings of cardiac echogenic foci, is quite anxious about it despite consultation with [facility] provider reassuring her plan a follow up ultrasound, okayed with previously per [facility] department. She reports it is hard for her to hydrate if at all at work particularly the day she has to be scheduled in the IV facility area as she can not drink or go to the bathroom area for 4 hours at a time. Reviewed: PTL s/s-LOF/Ctx's/VB, when to seek emergent care at [facility]. Strongly recommend to complete her labs today. 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 RTO 4 wks. Visit Date: 10/08/24 Last Updated by: Ynes Guajardo CNM Note author: Ynes Guajardo CNM. 18.1wk. NATHALY. Taking PNV, Doing well with no concerns. Good appetite, stays well hydrated. Reports she still has nausea throughout the day but no longer is vomiting. Taking her B6 vitamins. Has felt movements here in there. FAS is scheduled for October 22. Denies any LOF, VB, abd. pain or urinary symptoms. Has not completed her labs. Reviewed: Pap smear results-ascus negative HPV, sign for [facility] Pap/colposcopy results. She had normal Paps following the initial LGSIL which was approximately 10 years ago. PTL s/s-LOF/Ctx's/VB, when to seek emergent care. discomforts, self help measures. Encouraged a healthy well balanced diet, regular walking/exercise in . Hydrate well, 10-12 glasses of water daily. Reminded to register for her labs and have them done tomorrow patient agrees to the plan of care. RTO 4wks. Visit Date: 09/11/24 Last Updated by: Ynes Guajardo CNM Note author: Ynes Guajardo CNM. 14.2wk. NATHALY. Taking PNV, Doing well with concerns: Has daily nausea and vomiting that improves throughout the day able to eat later in the evening. 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 Previous note to excuse work in that area was given for 2 weeks. Stays well hydrated. Denies any LOF, VB, abd. pain or urinary symptoms. Reports 2 episodes of right-sided ligament pain resolved with rest and heat. Reviewed: PTL s/s-LOF/Ctx's/VB, when to seek emergent care. discomforts, self help measures. Note for 30 days to excuse from IV room until improvement. Hydrate well, 10-12 glasses of water daily. FAS ordered for 5 weeks. RTO 4wks. Visit Date: 08/12/24 Last Updated by: Ynes Guajardo CNM Note author: Ynes Guajardo CNM. 10wk. IOB. Taking PNV, B6 and Unisom for nausea, Doing well with no concerns. Good appetite, attempts to stays well hydrated. Denies any LOF, VB, abd. pain or urinary symptoms. She admits to increased yellow discharge without any symptoms. History of LGSIL 1 year ago, previous care in [place]. She reports regular known menstrual cycles lasting 28-31 days has been tracking them for over 2 years. EDC confirmed to LMP 03/10/2024. Reviewed: Pelvic pain/ VB, when to seek emergent care. Delivery and other services at [facility] if decides to transfer care. Pap, GC chlamydia and BV panel obtained await results for plan of care. Encouraged a healthy well balanced diet, regular walking/exercise in . Hydrate well, 10-12 glasses of water daily. Check with health insurance again speak with the chimney supervisor brick about concerns for tier coverage w/providers and lab services. Panoramic ordered labs pending based on patient's clarification on coverage on where to have her labs drawn. RTO 4wks. Visit Date: 08/10/24 Last Updated by: Anna Goddard LPN Cindy is here today for her Nurse intake. LMP 06/03/24 [facility] 03/10/25. CLARENCE by U/S on 08/05/24= 03/14/25. Pt is a , Pt was a surrogate, but miscarried at 8 wks. Current partner is FOB #2. Pt is employed at [employer] and also going to school for [employer]. She has been having issues with nausea, but is keeping well hydrated and eating more frequent, smaller amounts of food. Pt denies any use of MJ or illecits. Discussed labs including CF testing and UDS. Discussed NT u/s at [facility] and orders placed. Discussed Panorama testing, and pt will call Ins co to confirm coverage. Pts first was wnl, and had vaginal delivery with Epidural. Pt aware her u/s and delivery will be at [facility]. pt denies any family Hx of diabetes. Informed pt we recommend flu vaccine in and pt accepts. Discussed how to reach MD after hours and to be seen in [facility] for any OB issues. OB PE scheduled for 08/12/24. Results AMB Urinalysis, Automated UA Leukoctes 3 Jovani/uL Last Edit by ELIUD Simeon on 01/07/25 09:03 UA Nitrite Negative Last Edit by ELIUD Simeon on 01/07/25 09:03 UA Urobilinogen 0 mg/dL Last Edit by ELIUD Simeon on 01/07/25 09:0 3 UA Protein 1 mg/dL Last Edit by ELIUD Simeon on 01/07/25 09:03 UA pH 6.0 Last Edit by ELIUD Simeon on 01/07/25 09:03 UA Blood 0 Clayton/uL Last Edit by ELIUD Simeon on 01/07/25 09:03 UA Specific Traphill 1.020 Last Edit by ELIUD Simeon on 01/07/25 09:03 UA Ketone Negative Last Edit by ELIUD Simeon on 01/07/25 09:03 UA Bilirubin 0 mg/dL Last Edit by ELIUD Simeon on 01/07/25 09:03 UA Glucose 0 mg/dL Last Edit by ELIUD Simeon on 01/07/25 09:03 Coding Level of Care Code Alysia Assessment & Plan Assessment & Plan Orders: Orders AMB Urinalysis Automated Today Z34.90 - Encounter for supervision of normal , unspecified, unspecified trimester
[2025-01-07 09:00] VITALS: BP 98/60; BMI 25.7
== END 2025-01-07 09:16 | disposition home or self-care (01) ==
LOC: HO.HWS 08:53
PROVIDERS: PCP Registered Nurse; Visit Provider Advanced Practice Midwife
DX: Z34.90 Encounter for supervision of normal pregnancy, unspecified, unspecified trimester (principal)
CPT/HCPCS: 25942

== ENCOUNTER → 2025-01-07 08:53 | Outpatient (BNVA) | payer OTHER, SELFPAY | PROVIDERS: PCP Registered Nurse; Visit Provider Advanced Practice Midwife | DX: O99.343 Other mental disorders complicating pregnancy, third trimester (principal); O26.893 Other specified pregnancy related conditions, third trimester; F41.9 Anxiety disorder, unspecified; G90.A Postural orthostatic tachycardia syndrome [POTS]; Z3A.31 31 weeks gestation of pregnancy | CPT/HCPCS: 81003 ==

== ENCOUNTER 2025-01-21 13:25 | Outpatient (AMB) | payer OTHER, SELFPAY ==
--- NOTE | 2025-01-21 13:28 | A.OFFVISPN_ITS ---
Intake Vital Signs 01/21/25 13:34 Height 5 ft 4 in Weight 153 lb BMI 26.3 BP 112/70 Intake Visit Reasons: NATHALY/2Week Follow up Accompanied by: Spouse Allergies amoxicillin Allergy (Verified 01/21/25 13:28) Rash Patient : Yes PFSH Medical History Anemia affecting Right sciatic nerve pain Dizziness Trigeminal neuralgia POTS (postural orthostatic tachycardia syndrome) Supervision of normal in second trimester LGSIL on Pap smear of cervix Animal bite Surgical History Ovarian torsion Perry teeth removed Family History Mother Hx of malignant neoplasm of female breast Father Hx of deep venous thrombosis Brother Anxiety and depression Sister Anxiety and depression Other Breast cancer Social History Household Members: Spouse, Significant Other and Children Alcohol intake: former Patient Tobacco Use Status: Never used Tobacco Current occupational status: employed Gender identity: Female Female Reproductive History Menstrual Age of Menarche: 15 History History 3 Elective abortions 0 Para 1 Spontaneous abortions 1 Hx # Term Pregnancies 1 Ectopic pregnancies 0 Hx # Pregnancies 0 Multiple births 0 Past Pregnancies Del. Date GA/Weeks Outcome Route Wt Inf Gender Labor Gena Anesthesia L ocation Provider Complicate 10/03/14 39 live - full term vaginal delivery 7 lb 13 oz Male 16 hours epidural [facility] none 07/12/22 8 spontaneous Visit CLARENCE Calculator Estimated Delivery Date Method Current WG Current Estimate 03/10/25 LMP (Certain) 33w 1d Other Estimates 03/14/25 Ultrasound #1 32w 4d Expected Delivery Route/Plan vaginal delivery Specific Issues/Plans 29Yr. old G 3 P 1 EDC:03/10/25 by LMP Blood type: AB positive Problem List: 1. Anxiety-no meds/counseling. EDPS-5. Had a therapist. 2. History of UTI and yeast infections 3. LGSIL (age 19), followed by negative results. Pap 08/12/2024=ASCUS, HPV negative, repeat pp. 4. POTS-cardiology evaluation 11/09/2023, echo cardiogram to be scheduled... Testing: Panorama/and or First Tri screen: risk NT scan: 11/6/24 AFP: FAS: echogenic foci noted, left lateral placenta, plan follow up 3rd trimester ultrasound. Glucose: early 28 wk glucose: 107 CBC 1st Tri: 28 wk. CBC: 9.8/29.6 GBS: Vaccinations: Flu: Covid: Tdap: Given 01/21/2025. 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 Transportation: own Labor, and Concerns: partner/FOB- Trino Labor support: Trino Plan: Feeding Plans: Breast-feeding, did not breastfeed successfully after initial attempt due to multiple concerns control: OB Visit Log Initial Weight: 120 lb Date -?-?-?-?-?-?-?-?-?-?-?-?- EGA Weight Gest Week Fundal Ht Present FHR move Efface % Edema BP PrePreg We Weight GTT -?-?-?-?-?-?-?-?-?-?-?-?- Glucose LV Protein Blood Type 08/10/24 -?-?-?-?-?-?-?-?-?-?-?-?- 9w 5d 128 lb 4 oz (+8 lb 4 oz) 1 28 lb 4 oz -?-?-?-?-?-?-?-?-?-?-?-?- 08/12/24 -?-?-?-?-?-?-?-?-?-?-?-?- 10w 0d 121 lb (+16 oz) 9 110/70 121 lb -?-?-?-?-?-?-?-?-?-?-?-?- 09/11/24 -?-?-?-?-?-?-?-?-?-?-?-?- 14w 2d 126 lb 8 oz (+6 lb 8 oz) 16 150 108/72 126 lb 8 oz -?-?-?-?-?-?-?-?-?-?-?-?- 10/08/24 -?-?-?-?-?-?-?-?-?-?-?-?- 18w 1d 126 lb (+6 lb) 19 150 110/74 126 lb -?-?-?-?-?-?-?-?-?-?-?-?- 11/05/24 -?-?-?-?-?-?-?-?-?-?-?-?- 22w 1d 134 lb (+14 lb) 22 150 active 112/68 134 lb -?-?-?-?-?-?-?-?-?-?-?-?- 12/09/24 -?-?-?-?-?-?-?-?-?-?-?-?- 27w 0d 144 lb (+24 lb) 26 140 active 110/60 144 lb -?-?-?-?-?-?-?-?-?-?-?-?- 12/24/24 -?-?-?-?-?-?-?-?-?-?-?-?- 29w 1d 147 lb (+27 lb) 30 140 active 100/60 147 lb -?-?-?-?-?-?-?-?-?-?-?-?- 01/07/25 -?-?-?-?-?-?-?-?-?-?-?-?- 31w 1d 150 lb (+30 lb) 31 140 active 98/60 150 lb -?-?-?-?-?-?-?-?-?-?-?-?- 01/21/25 -?-?-?-?-?-?-?-?-?-?-?-?- 33w 1d 153 lb (+33 lb) 32 140 active 112/70 153 lb -?-?-?-?-?-?-?-?-?-?-?-?- Notes Visit Date: 01/21/25 Last Updated by: Ynes Guajardo CNM Note author: Ynes Guajardo CNM. 33.1wk. NATHALY. Taking PNV, Doing well with no concerns. Good appetite, stays well hydrated. Denies any LOF, VB, abd. pain or urinary symptoms. Trino present for visit today. Has transfer appointment at [facility] for intake on February 05, appointment February 08. Recently diagnosed with polyhydramnios has a ultrasound scheduled every Saturday at [facility]. Discuss the transfer process. Reviewed: PTL s/s-LOF/Ctx's/VB, when to seek emergent care. discomforts, self help measures. FKC and when to call the office for further eval. Encouraged a healthy well balanced diet, regular walking/exercise in . Hydrate well, 10-12 glasses of water daily. Tdap today. RTO 2wks. Visit Date: 01/07/25 Last Updated by: Ynes Guajardo CNM Note author: Ynes Guajardo CNM. 31.1wk. NATHALY. Taking PNV, Doing well with no concerns. Good appetite, stays well hydrated. Denies any LOF, VB, abd. pain or urinary symptoms. Reviewed: PTL s/s-LOF/Ctx's/VB, when to seek emergent care. discomforts, self help measures. FKC and when to call the office for further eval. Encouraged a healthy well balanced diet, regular walking/exercise in . Hydrate well, 10-12 glasses of water daily. Plan Tdap at next visit RTO 2wks. Visit Date: 12/24/24 Last Updated by: Ynes Guajardo CNM Note author: Ynes Guajardo CNM. 29.1wk. NATHALY. Taking PNV, she reports iron is causing stomach aches. Denies any LOF, VB, abd. pain or urinary symptoms. EPDS-4. Having concerns abo ut her work requirements to be in the IV room for many days, an area of work where she can not have fluids or a bathroom break. She request a note to be exempt from the area. Due to her medical history of POTS, anemia in , note will be given today to excuse her from working in the IV room. Reviewed: Lab work reviewed- . glucose 107. Unable to tolerate iron due to GI effects plan to refer her to Hematology for iron infusions. Ultrasound follow up ordered for a echogenic foci. PTL s/s-LOF/Ctx's/VB, when to seek emergent care. discomforts, self help measures. FKC and when to call the office for further eval. Encouraged a healthy well balanced diet, regular walking/exercise in . Hydrate well, 10-12 glasses of water daily. Note given not to work in the IV room today. RTO 2wks. Visit Date: 12/09/24 Last Updated by: Ynes Guajardo CNM Note author: Ynes Guajardo CNM. 27wk. NATHALY. Taking PNV, Doing well with no concerns. Good appetite, stays well hydrated. Denies any LOF, VB, abd. pain or urinary symptoms. History right sciatic pain worsening with . History of anxiety onset after her previous miscarriage, she reports she tends to be an over thinker. Coping well on her own and had a therapist she can contact. Having concerns with the work environment due to restrictions on being able to hydrate in have a break in the IV room further impact her POTS. Reviewed: PTL s/s-LOF/Ctx's/VB, when to seek emergent care. discomforts, self help measures. Treatment options for anxiety, self-help measures, advised to reach out to therapist and schedule appointments for support. 28 week labs ordered. Advised to speak to her process manufacturing engineer regarding a work note for FMLA due to POTS. Referral to PT placed. FKC and when to call the office for further eval. Encouraged a healthy well balanced diet, regular walking/exercise in . Hydrate well, 10-12 glasses of water daily. RTO 2wks. Visit Date: 11/05/24 Last Updated by: Ynes Guajardo CNM Note author: Ynes Guajardo CNM. 22.1wk. NATHALY. Taking PNV, Doing well with no concerns. Good appetite, trying to hydrate. Denies any LOF, VB, abd. pain or urinary symptoms. Has seen a process manufacturing engineer this week, is due to have an echo scheduled. Reviewed recent FAS findings of cardiac echogenic foci, is quite anxious about it despite consultation with [facility] provider reassuring her plan a follow up ultrasound, okayed with previously per [facility] department. She reports it is hard for her to hydrate if at all at work particularly the day she has to be scheduled in the IV facility area as she can not drink or go to the bathroom area for 4 hours at a time. Reviewed: PTL s/s-LOF/Ctx's/VB, when to seek emergent care at [facility]. Strongly recommend to complete her labs today. 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 RTO 4 wks. Visit Date: 10/08/24 Last Updated by: Ynes Guajardo CNM Note author: Ynes Guajardo CNM. 18.1wk. NATHALY. Taking PNV, Doing well with no concerns. Good appetite, stays well hydrated. Reports she still has nausea throughout the day but no longer is vomiting. Taking her B6 vitamins. Has felt movements here in there. FAS is scheduled for October 22. Denies any LOF, VB, abd. pain or urinary symptoms. Has not completed her labs. Reviewed: Pap smear results-ascus negative HPV, sign for [facility] Pap/colposcopy results. She had normal Paps following the initial LGSIL which was approximately 10 years ago. PTL s/s-LOF/Ctx's/VB, when to seek emergent care. discomforts, self help measures. Encouraged a healthy well balanced diet, regular walking/exercise in . Hydrate well, 10-12 glasses of water daily. Reminded to register for her labs and have them done tomorrow patient agrees to the plan of care. RTO 4wks. Visit Date: 09/11/24 Last Updated by: Ynes Guajardo CNM Note author: Ynes Guajardo CNM. 14.2wk. NATHALY. Taking PNV, Doing well with concerns: Has daily nausea and vomiting that improves throughout the day able to eat later in the evening. 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 Previous note to excuse work in that area was given for 2 weeks. Stays well hydrated. Denies any LOF, VB, abd. pain or urinary symptoms. Reports 2 episodes of right-sided ligament pain resolved with rest and heat. Reviewed: PTL s/s-LOF/Ctx's/VB, when to seek emergent care. discomforts, self help measures. Note for 30 days to excuse from IV room until improvement. Hydrate well, 10-12 glasses of water daily. FAS ordered for 5 weeks. RTO 4wks. Visit Date: 08/12/24 Last Updated by: Ynes Guajardo CNM Note author: Ynes Guajardo CNM. 10wk. IOB. Taking PNV, B6 and Unisom for nausea, Doing well with no concerns. Good appetite, attempts to stays well hydrated. Denies any LOF, VB, abd. pain or urinary symptoms. She admits to increased yellow discharge without any symptoms. History of LGSIL 1 year ago, previous care in [place]. She reports regular known menstrual cycles lasting 28-31 days has been tracking them for over 2 years. EDC confirmed to LMP 03/10/2024. Reviewed: Pelvic pain/ VB, when to seek emergent care. Delivery and other services at [facility] if decides to transfer care. Pap, GC chlamydia and BV panel obtained await results for plan of care. Encouraged a healthy well balanced diet, regular walking/exercise in . Hydrate well, 10-12 glasses of water daily. Check with health insurance again speak with the direct care supervisor about concerns for tier coverage w/providers and lab services. Panoramic ordered labs pending based on patient's clarification on coverage on where to have her labs drawn. RTO 4wks. Visit Date: 08/10/24 Last Updated by: Anna Goddard LPN Cindy is here today for her Nurse intake. LMP 06/03/24 CLARENCE 03/10/25. CLARENCE by U/S on 08/05/24= 03/14/25. Pt is a , Pt was a surrogate, but miscarried at 8 wks. Current partner is FOB #2. Pt is employed at [employer] and also going to school for [employer]. She has been having issues with nausea, but is keeping well hydrated and eating more frequent, smaller amounts of food. Pt denies any use of MJ or illecits. Discussed labs including CF testing and UDS. Discussed NT u/s at [facility] and orders placed. Discussed Panorama testing, and pt will call Ins co to confirm coverage. Pts first was wnl, and had vaginal delivery with Epidural. Pt aware her u/s and delivery will be at [facility]. pt denies any family Hx of diabetes. Informed pt we recommend flu vaccine in and pt accepts. Discussed how to reach MD after hours and to be seen in [facility] for any OB issues. OB PE scheduled for 08/12/24. Results AMB Urinalysis, Automated UA Leukoctes 2 Ojvani/uL Last Edit by Janet Land [facility] on 01/21/25 13:36 UA Nitrite Negative Last Edit by Janet Land [facility] on 01/21/25 13:36 UA Urobilinogen 0 mg/dL Last Edit by Janet Land [facility] on 01/21/25 13:3 6 UA Protein 0 mg/dL Last Edit by Janet Land [facility] on 01/21/25 13:36 UA pH 7.5 Last Edit by Janet Land [facility] on 01/21/25 13:36 UA Blood 0 Clayton/uL Last Edit by Janet Land [facility] on 01/21/25 13:36 UA Specific [place] 1.005 Last Edit by Janet Land [facility] on 01/21/25 13:36 UA Ketone Negative Last Edit by Janet Land [facility] on 01/21/25 13:36 UA Bilirubin 0 mg/dL Last Edit by Janet Land [facility] on 01/21/25 13:36 UA Glucose 0 mg/dL Last Edit by Janet Land [facility] on 01/21/25 13:36 Immunizations Boostrix Tdap 2.5 Lf unit-8 mcg-5 Lf/0.5 mL intramuscular syringe Performing Provider: Ynes Guajardo CNM Performing Location: [employer] [facility] Administered by: Anna Goddard LPN on 01/21/25 14:20 Dose Route Admin Location Dispensed Lot Number Expiration Date [facility] Utility Mechanic Supervisor 0.5 mL IM Right Deltoid 0.5 mL [id number] 07/12/26 80430-940-71 [employer] VIS Given Date VIS Provided VIS Publication Date 01/21/25 Single Vaccine 21 Eligibility Eligibility Date Funding Source Not [facility] Eligible 01/21/25 Private Results Reviewed Results Reviewed: Laboratory Last Values Urine pH (Auto) 7.5 01/21/25 13:35 Specific [place] (Auto) 1.005 01/21/25 13:35 Urine Protein (Auto) 0 mg/dL 01/21/25 13:35 Glucose (UA)(Auto) 0 mg/dL 01/21/25 13:35 Urine Ketones (Auto) Negative 01/21/25 13:35 Urine Blood (Auto) 0 Clayton/uL 01/21/25 13:35 Urine Nitrite (Auto) Negative 01/21/25 13:35 Urine Bilirubin (Auto) 0 mg/dL 01/21/25 13:35 Urine Urobilinogen (Auto) 0 mg/dL 01/21/25 13:35 Leukocyte Esterase (Auto) 2 Jovani/uL 01/21/25 13:35 Coding Level of Care Code [place] Assessment & Plan Assessment & Plan Orders: Orders TDaP Immunization Today Z23 - Encounter for immunization AMB Urinalysis Automated Today Z34.90 - Encounter for supervision of normal , unspecified, unspecified trimester
[2025-01-21 13:34] VITALS: BP 112/70; BMI 26.3
--- OUTSIDE RECORDS SUMMARY | 2025-01-21 14:38 | XMS_ITS | Clinical Summary ---
Author Organization [facility] Address [address] [place] [address] Care Team Providers Care Registered Medical Transcriptionist Name Role Phone Randee Rodarte MD Primary Care Provider [phone] Randee Rodarte MD Unavailable [phone] Allergies Active Allergy Reactions Criticality Noted Date Comments Amoxil 01/15/2014 TripleLift Comment: Reaction Date: 28May2013; Active Problems Problem [...] age to complete this topic Care Teams Registered Medical Transcriptionist Relationship Specialty Start Date End Date Randee Rodarte MD [address] [place] [address] PCP - General 05/27/23 Randee Rodarte MD [facility] [place] [address] PCP - Backup PCP Pediatrics 11/21/23
--- OUTSIDE RECORDS SUMMARY | 2025-01-21 14:38 | XMS_ITS | Encounter Summary ---
Author Organization [facility] Address [address] [place] [address] Care Team Providers Care Button Riveter Name Role Phone Cindy Tapia DNP Primary Care Provider [phone] Encounter Details Date Type Department Care Team (Late st Contact Info) Description 08/05/2021 EpicOnHand Encounter [facility] [place] [address] [place] [address] Yue Barton MD [address] [place] [address] Social History Tobacco Use Types Packs/Day Years [...] documented as of this encounter Care Teams Button Riveter Relationship Specialty Start Date End Date Cindy Tapia DNP PCP - General 05/03/17 08/28/22 documented as of this encounter
--- OUTSIDE RECORDS SUMMARY | 2025-01-21 14:38 | XMS_ITS | Encounter Summary ---
Author Organization [facility] Address [address] [place] [address] Care Team Providers Care Conference Center Coordinator Name Role Phone Cindy Tapia DNP Primary Care Provider [phone] Encounter Details Date Type Department Care Team (Late st Contact Info) Description 06/04/2017 Scanned Document [facility] [place] [address] [place] [address] Cindy Tapia DNP [address] [phone] Social History Tobacco Use Types Packs/Day Years [...] on filedocumented in this encounter Care Teams Conference Center Coordinator Relationship Specialty Start Date End Date Cindy Tapia DNP PCP - General 05/03/17 08/28/22 documented as of this encounter
--- OUTSIDE RECORDS SUMMARY | 2025-01-21 14:38 | XMS_ITS | Encounter Summary ---
Author Organization [facility] Address [address] [place] [address] Care Team Providers Care Hand Decorator Name Role Phone Cindy Tapia DNP Primary Care Provider [phone] Encounter Details Date Type Department Care Team (Late st Contact Info) Description 06/05/2017 Scanned Document [facility] [place] [address] [place] [address] External, Provider Social History Tobacco Use Types [...] on filedocumented in this encounter Care Teams Hand Decorator Relationship Specialty Start Date End Date Cindy Tapia DNP PCP - General 05/03/17 08/28/22 documented as of this encounter
--- OUTSIDE RECORDS SUMMARY | 2025-01-21 14:38 | XMS_ITS | Encounter Summary ---
Author Organization [facility] Address [address] [place] [address] Care Team Providers Care Infection Control Preventionist Name Role Phone Cindy Tapia DNP Primary Care Provider [phone] Encounter Details Date Type Department Care Team (Late st Contact Info) Description 05/22/2017 Scanned Document [facility] [place] [address] [place] [address] Randee Rodarte MD [address] [place] [address] Social History Tobacco Use Types [...] on filedocumented in this encounter Care Teams Infection Control Preventionist Relationship Specialty Start Date End Date Cindy Tapia DNP PCP - General 05/03/17 08/28/22 documented as of this encounter
--- OUTSIDE RECORDS SUMMARY | 2025-01-21 14:38 | XMS_ITS | Encounter Summary ---
Author Organization [facility] Address [address] [place] [address] Care Team Providers Care Technology Consultant Name Role Phone Cindy Tapia DNP Primary Care Provider [phone] Encounter Details Date Type Department Care Team (Late st Contact Info) Description 07/13/2022 Scanned Document [facility] [place] [address] [place] [address] External, Provider Social History Tobacco Use Types [...] documented as of this encounter Care Teams Technology Consultant Relationship Specialty Start Date End Date Cindy Tapia DNP PCP - General 05/03/17 08/28/22 documented as of this encounter
--- OUTSIDE RECORDS SUMMARY | 2025-01-21 14:38 | XMS_ITS | Encounter Summary ---
Author Organization [facility] Address [address] [place] [address] Care Team Providers Care Core Stripper Name Role Phone Thuan Hernandez MD Primary Care Provider Cindy Tapia APRN Primary Care Provider [phone] Anette Parham APPLICATIONS SALES CONSULTANT Unavailable Tho Mirza MD Unavailable Antione Pickett APPLICATIONS SALES CONSULTANT Unavailable [phone] Keely Zelaya APRN Primary Care Provider [phone] [facility] Unava ilable Unavailable Encounter Details Date Type Department Care Team (Late st Contact Info) Description 10/10/2016 Scanned Document [address] [address] Provider, MD [place] [address] [place] [address] Social History Tobacco Use Types Packs/Day Years [...] on filedocumented in this encounter Care Teams Core Stripper Relationship Specialty Start Date End Date Thuan Hernandez MD [address] [place] [address] PCP - General 07/17/17 10/05/18 Cindy Tapia, APPLICATIONS SALES CONSULTANT [address] [place], [facility] PCP - General Family Medicine 10/06/18 11/28/22 Keely Zelaya APRN [address] [place] [address] PCP - General 11/29/22 [facility] [address] [place] [address] PCP - Family Medicine Obstetrics and Gynecology 07/28/23 Anette Parham, APPLICATIONS SALES CONSULTANT [address] [place] [address] Nurse Practitioner Gastroenterology 06/15/21 Tho Mirza MD [address] [place] [address] Field Pipelines Supervisor Cardiovascular Disease 06/15/21 Antione Pickett, APPLICATION[place] [address] Neurology Neurology 09/25/21 07/28/23 documented as of this encounter
--- OUTSIDE RECORDS SUMMARY | 2025-01-21 14:38 | XMS_ITS | Encounter Summary ---
Author Organization [facility] Address [address] [place] [address] Care Team Providers Care Machine Carton Marker Name Role Phone Cindy Tapia DNP Primary Care Provider [phone] Encounter Details Date Type Department Care Team (Late st Contact Info) Description 09/08/2021 Scanned Document [facility] [place] [address] [place] [address] External, Provider Social History Tobacco Use Types [...] documented as of this encounter Care Teams Machine Carton Marker Relationship Specialty Start Date End Date Cindy Tapia DNP PCP - General 05/03/17 08/28/22 documented as of this encounter
--- OUTSIDE RECORDS SUMMARY | 2025-01-21 14:38 | XMS_ITS | Clinical Summary ---
Author Organization [facility] [address] [facility] Address [address] [place] [address] Phone Care Team Providers Care Supervisor [employer] Name Role Phone Unavailable Primary Care Provider [...] 06/02/2013,2009 Polio (IPV) 06/12/2000, 6,1995,07/22 Tdap 08/18/2014,05/16/2007 Varicella, live 05/16/2007,12/13/1997 Family History Medical History Relation Name [...] Last Done Comments Hepatitis C screening 2013 Covid-19 vaccine series ( season) 2024 09/29/2021, 11/25/2020, 10/26/2020 Tetanus adult (Td q 10,TDAP once) 08/18/2024 08/18/2014, 05/16/2007, 06/12/2000, Additional history exists Cervical cancer screening 04/11/2025 04/11/2022, 07/2019 Influenza vaccine 06/21/2025 09/17/2022, , 08/15/2020, Additional history exists RSV Immunization (1 - 1-dose 75+ series) 2070 Meningococcal Vaccine Completed 06/02/2013, 010 HIV screening Addressed 05/03/2017 (Catalina ent declined) Overridden with the intention of not completing the topic Pneumococcal Vaccine (2 - 49 years) Aged Out No longer eligible based on patient's age to complete this topic [place]
--- OUTSIDE RECORDS SUMMARY | 2025-01-21 14:38 | XMS_ITS | Clinical Summary ---
Author Organization [facility] Address [address] [place] [address] Care Team Providers Care Sheep Rancher Name Role Phone Anette Parham APRN Unavailable [phone] Tho Mirza MD Unavailable [phone] Keely Zelaya APRN Primary Care Provider [phone] [facility] Department Of Women's Unava ilable Unavailable [...] Date/Time Associated Diagnosis Comments THINPREP PAP TEST (LABORER ELECTROPLATING) WITH HPV REFLEX, GC/CT Routine 04/11/2022 3:59 PM EDT from Last 3 Months or Most Recently Relevant to Health Maintenance Results * ThinPrep Pap Test (Furnace Repair Mechanic) with HPV Reflex, GC/CT (04/11/2022 3:59 PM EDT) Report Report [facility] Comment: Final Gynecological Cytology Report ThinPrep Pap Test with HPV Reflex, GC/Chlamydia SPECIMEN ADEQUACY: SATISFACTORY FOR EVALUATION; ENDOCERVICAL/TRANSFORMATION ZONE COMPONENT PRESENT. INTERPRETATION: NEGATIVE FOR INTRAEPITHELIAL LESION OR MALIGNANCY. Electronically Signed: ??Tho Dwyer, [place](ASCP) CLINICAL INFORMATION: LMP: NG Specimen Source: ??Cervix, Endocervix CPT Codes: 41054 ICD Codes: Z01.419 Other 04/11/2022 3:59 PM EDT 04/12/2022 2:01 AM EDT Talha Zurita MD LAB AMB PATH/CYTO ORDERABLES Performing Organization Address City/State/[facility] Co de Phone Number [facility] [address] [place], [place] from Last 3 Months or Most Recently Relevant to Health Maintenance Advance Directives * Full Code (Latest Code Status on File) Date Activated Date Inactivated Comments 07/28/2023 11:08 PM * Full Code Date Activated Date Inactivated Comments 07/28/2023 10:51 PM 07/28/2023 11:08 PM Care Teams Sheep Rancher Relationship Specialty Start Date End Date Keely Zelaya APRN [address] [place] [address] PCP - General 11/29/22 [facility] Department Of Women's [address] [place] [address] PCP - Family Medicine Obstetrics and Gynecology 07/28/23 Anette Parham APRN Nurse Practitioner Gastroenterology 06/15/21 Tho Mirza MD Air Pollution Engineer Cardiovascular Disease 06/15/21
--- OUTSIDE RECORDS SUMMARY | 2025-01-21 14:38 | XMS_ITS | Encounter Summary ---
Author Organization [facility] Address [address] [place] [address] Care Team Providers Care Leases And Land Supervisor Name Role Phone Cindy Tapia DNP Primary Care Provider [phone] Encounter Details Date Type Department Care Team (Late st Contact Info) Description 10/09/2012 Abstract Pediatric Nephrology [address] [place] [address], [address] [place] [address] Crys Chen MD [address] [place] [address] UTI (urinary tract infection) (Primary [...] ureter documented in this encounter Care Teams Leases And Land Supervisor Relationship Specialty Start Date End Date Cindy Tapia DNP PCP - General 05/03/17 08/28/22 documented as of this encounter
--- OUTSIDE RECORDS SUMMARY | 2025-01-21 14:38 | XMS_ITS | Encounter Summary ---
Author Organization [facility] Address [address] [place] [address] Care Team Providers Care Elementary Librarian Name Role Phone Cindy Tapia DNP Primary Care Provider [phone] Encounter Details Date Type Department Care Team (Late st Contact Info) Description 10/10/2018 Scanned Document [facility] [place] [address] [place] [address] External, Provider Social History Tobacco Use Types [...] documented as of this encounter Care Teams Elementary Librarian Relationship Specialty Start Date End Date Cindy Tapia DNP PCP - General 05/03/17 08/28/22 documented as of this encounter
--- OUTSIDE RECORDS SUMMARY | 2025-01-21 14:38 | XMS_ITS | Encounter Summary ---
Author Organization [facility] Address [address] [place] [address] Care Team Providers Care Lopper Name Role Phone Cindy Tapia DNP Primary Care Provider [phone] Encounter Details Date Type Department Care Team (Late st Contact Info) Description 08/11/2021 Scanned Document [facility] [place] [address] [place] [address] External, Provider Social History Tobacco Use Types [...] documented as of this encounter Care Teams Lopper Relationship Specialty Start Date End Date Cindy Tapia DNP PCP - General 05/03/17 08/28/22 documented as of this encounter
--- OUTSIDE RECORDS SUMMARY | 2025-01-21 14:38 | XMS_ITS | Encounter Summary ---
Author Organization [facility] Address [address] [place] [id number] Care Team Providers Care Community Service Organization Director Name Role Phone Anette Parham FOAM DISPENSER Unavailable [phone] Tho Mirza MD Unavailable [phone] Antione Pickett FOAM DISPENSER Unavailable [phone] Keely Zelaya APRN Primary Care Provider [phone] [facility] Department Of Women's Unava ilable Unavailable Encounter Details Date Type Department Care Team (Late st Contact Info) Description 12/05/2022 Telephone [facility] Heart & Vascular [place] - Electrophysiology [address] [place] [address] Terry Lakhani MD [address] [place] [address] Social History Tobacco Use Types [...] on filedocumented in this encounter Care Teams Community Service Organization Director Relationship Specialty Start Date End Date Keely Zelaya APRN [facility] [place] [address] PCP - General 11/29/22 [facility] [address] [place], [place] [id number] PCP - Family Medicine Obstetrics and Gynecology 07/28/23 Anette Parham APRN Nurse Practitioner Gastroenterology 06/15/21 Tho Mirza MD Supervisor Rice Milling Cardiovascular Disease 06/15/21 [place] [address] Neurology Neurology 09/25/21 07/28/23 documented as of this encounter
--- OUTSIDE RECORDS SUMMARY | 2025-01-21 14:38 | XMS_ITS | Encounter Summary ---
Author Organization [facility] Address [address] [place] [address] Care Team Providers Care Energy Infrastructure Engineer Name Role Phone Cindy Tapia DNP Primary Care Provider [phone] Encounter Details Date Type Department Care Team (Late st Contact Info) Description 09/25/2021 Scanned Document [facility] [place] [address] [place] [address] External, Provider Social History Tobacco Use Types [...] documented as of this encounter Care Teams Energy Infrastructure Engineer Relationship Specialty Start Date End Date Cindy Tapia DNP PCP - General 05/03/17 08/28/22 documented as of this encounter
--- OUTSIDE RECORDS SUMMARY | 2025-01-21 14:38 | XMS_ITS | Encounter Summary ---
Author Organization [facility] Address [address] [place] [id number] Care Team Providers Care Disbursing Agent Name Role Phone Cindy Tapia APRN Primary Care Provider [phone] Anette Parham MECHANICAL RESEARCH ENGINEER Unavailable [phone] Tho Mirza MD Unavailable [phone] Antione Pickett MECHANICAL RESEARCH ENGINEER Unavailable [phone] Keely Zelaya APRN Primary Care Provider [phone] [facility] Department Of Women's Unava ilable Unavailable Encounter Details Date Type Department Care Team (Late st Contact Info) Description 10/27/2021 Scanned Document [facility] [address] [place] [phone] Bell Moss MD [address] [place] [phone] Social History Tobacco Use Types Packs/Day [...] on filedocumented in this encounter Care Teams Disbursing Agent Relationship Specialty Start Date End Date Cindy Tapia APRN PCP - General Family Medicine 10/06/18 11/28/22 Keely Zelaya APRN [address] [place], [place] [address] PCP - General 11/29/22 [facility] [address] [place], [place] [address] PCP - Family Medicine Obstetrics and Gynecology 07/28/23 Anette Parham APRN Nurse Practitioner Gastroenterology 06/15/21 Tho Mirza MD Powerhouse Tender Cardiovascular Disease 06/15/21 [place] [address] Neurology Neurology 09/25/21 07/28/23 documented as of this encounter
--- OUTSIDE RECORDS SUMMARY | 2025-01-21 14:38 | XMS_ITS | Encounter Summary ---
Author Organization [facility] Address [address] [place] [address] Care Team Providers Care Ambulatory Technologist Name Role Phone Cindy Tapia DNP Primary Care Provider [phone] Encounter Details Date Type Department Care Team (Late st Contact Info) Description 06/15/2021 Scanned Document [facility] [place] [address] [place] [address] External, Provider Social History Tobacco Use Types [...] documented as of this encounter Care Teams Ambulatory Technologist Relationship Specialty Start Date End Date Cindy Tapia DNP PCP - General 05/03/17 08/28/22 documented as of this encounter
--- OUTSIDE RECORDS SUMMARY | 2025-01-21 14:38 | XMS_ITS | Encounter Summary ---
Author Organization [facility] Address [address] [place] [address] Care Team Providers Care Blackjack Dealer Name Role Phone Cindy Tapia DNP Primary Care Provider [phone] Encounter Details Date Type Department Care Team (Late st Contact Info) Description 09/08/2020 Scanned Document [facility] [place] [address] [place] [address] External, Provider Social History Tobacco Use Types [...] documented as of this encounter Care Teams Blackjack Dealer Relationship Specialty Start Date End Date Cindy Tapia DNP PCP - General 05/03/17 08/28/22 documented as of this encounter
--- OUTSIDE RECORDS SUMMARY | 2025-01-21 14:38 | XMS_ITS | Encounter Summary ---
Author Organization [facility] Address [address] [place] [address] Care Team Providers Care Committee Member Name Role Phone Anette Parham JEWELRY RACKER Unavailable [phone] Tho Mirza MD Unavailable [phone] Antione Pickett JEWELRY RACKER Unavailable [phone] Keely Zelaya APRN Primary Care Provider [phone] [facility] Department Of Women's Unava ilable Unavailable Encounter Details Date Type Department Care Team (Late st Contact Info) Description 12/14/2022 Scanned Document [facility] Heart & Vascular [place] - Electrophysiology [address] [place] [phone] Terry Lakhani MD [address] [place], [place] [id number] Social History Tobacco Use Types Packs/Day Years [...] on filedocumented in this encounter Care Teams Committee Member Relationship Specialty Start Date End Date Keely Zelaya APRN [facility] [place] [address] PCP - General 11/29/22 [facility] [address] [place], [place] [id number] PCP - Family Medicine Obstetrics and Gynecology 07/28/23 Anette Parham APRN Nurse Practitioner Gastroenterology 06/15/21 Tho Mirza MD Recorder Helper Gravity Prospecting Cardiovascular Disease 06/15/21 [place] [address] Neurology Neurology 09/25/21 07/28/23 documented as of this encounter
--- OUTSIDE RECORDS SUMMARY | 2025-01-21 14:38 | XMS_ITS | Encounter Summary ---
Author Organization [facility] Address [address] [place] [address] Care Team Providers Care Pantograph Ii Engraver Name Role Phone Cindy Tapia DNP Primary Care Provider [phone] Encounter Details Date Type Department Care Team (Late st Contact Info) Description 10/19/2021 Scanned Document [facility] [place] [address] [place] [address] External, Provider Social History Tobacco Use Types [...] documented as of this encounter Care Teams Pantograph Ii Engraver Relationship Specialty Start Date End Date Cindy Tapia DNP PCP - General 05/03/17 08/28/22 documented as of this encounter
--- OUTSIDE RECORDS SUMMARY | 2025-01-21 14:39 | XMS_ITS | Encounter Summary ---
Author Organization [facility] Address [address] [place] [address] Care Team Providers Care Regulatory Affairs Assistant Name Role Phone Cindy Tapia DNP Primary Care Provider [phone] Encounter Details Date Type Department Care Team (Late st Contact Info) Description 07/25/2018 Scanned Document [facility] [place] [address] [place] [address] External, Provider Social History Tobacco Use Types [...] on filedocumented in this encounter Care Teams Regulatory Affairs Assistant Relationship Specialty Start Date End Date Cindy Tapia DNP PCP - General 05/03/17 08/28/22 documented as of this encounter
--- OUTSIDE RECORDS SUMMARY | 2025-01-21 14:39 | XMS_ITS | Encounter Summary ---
Author Organization [facility] Address [address] [place] [address] Care Team Providers Care Button Clamper Name Role Phone Cindy Tapia MALDONADO Primary Care Provider [phone] Encounter Details Date Type Department Care Team (Late st Contact Info) Description 10/29/2017 Transcribed Orders Employee Health [address] [place] [phone] Iesha Ludwig MD [address] [place] [phone] (Work) Physical exam, pre-employment (Primary [...] IgG Positive Positive 10/29/2017 2:51 PM EST [facility] Mumps Antibody, IgG Interval 3.44 >=0.50 10/29/2017 2:51 PM EST [facility] Blood specimen (specimen) Venipuncture / Unknown 10/29/2017 9:10 AM EST 10/29/2017 12:59 PM EST [facility] LABORATORY - 10/29/2017 2:51 PM EST Reference Interval [...] Ludwig MD LAB BLOOD ORDERABLES Final Result [facility] [address] [place] [address] * Varicella zoster antibody, IgG (10/29/2017 9:10 AM EST) Varicella Zoster Antibody, IgG Numeric 750 >165 IV 10/29/2017 3:20 PM EST [facility] LABORATORY Varicella Zoster Antibody, IgG Positive Positive 10/29/2017 3:20 PM EST [facility] Comment: Reference Interval Interpretation: ? [...] Ludwig MD LAB BLOOD ORDERABLES Final Result [facility] [address] [place] [address] * Rubella antibody, IgG (BH GH L LMW YH) (10/29/2017 9:10 AM EST) Rubella Antibody, IgG Positive Positive 10/29/2017 2:20 PM EST [facility] LABOR[facility]ORY Rubella Antibody, IgG Interval 77.3 >=10.0 Index 10/29/2017 2:20 PM EST [facility] Blood specimen (specimen) Venipuncture / Unknown 10/29/2017 9:10 AM EST 10/29/2017 12:59 PM EST Narrative [facility] LABORATORY - 10/29/2017 2:20 PM [...] Ludwig MD LAB BLOOD ORDERABLES Final Result [facility]ORATORY [address] [place] [address] * Measles (Rubeola) antibody, IgG (10/29/2017 9:10 AM EST) Pathologist [facility] Measles IgG Initial Result >300.0 >=30.0 AU/mL 10/29/2017 3:20 PM EST [facility]OR[facility]ORY Measles IgG Positive Positive 10/29/2017 3:20 PM EST [facility] Comment: Reference Interval Interpretation: [...] Ludwig MD LAB BLOOD ORDERABLES Final Result [facility]OR[facility] [address] [place] [address] documented in this encounter Visit Diagnoses Diagnosis Physical exam, pre-employment- Primary Health examination of defined subpopulation documented in this encounter Care Teams Button Clamper Relationship Specialty Start Date End Date Cindy Tapia DNP PCP - General 05/03/17 08/28/22 documented as of this encounter
--- OUTSIDE RECORDS SUMMARY | 2025-01-21 14:39 | XMS_ITS | Encounter Summary ---
Author Organization [facility] Address [address] [place] [address] Care Team Providers Care Software Release Manager Name Role Phone Cindy Tapia DNP Primary Care Provider [phone] Encounter Details Date Type Department Care Team (Late st Contact Info) Description 08/05/2018 Scanned Document [facility] [place] [address] [place] [address] External, Provider Social History Tobacco Use Types [...] on filedocumented in this encounter Care Teams Software Release Manager Relationship Specialty Start Date End Date Cindy Tapia DNP PCP - General 05/03/17 08/28/22 documented as of this encounter
--- OUTSIDE RECORDS SUMMARY | 2025-01-21 14:39 | XMS_ITS | Encounter Summary ---
Author Organization [facility] Address [address] [place] [address] Care Team Providers Care Inventory Audit Clerk Name Role Phone Cindy Tapia DNP Primary Care Provider [phone] Encounter Details Date Type Department Care Team (Late st Contact Info) Description 08/28/2018 Scanned Document [facility] [place] [address] [place] [address] External, Provider Social History Tobacco Use Types [...] on filedocumented in this encounter Care Teams Inventory Audit Clerk Relationship Specialty Start Date End Date Cindy Tapia DNP PCP - General 05/03/17 08/28/22 documented as of this encounter
--- OUTSIDE RECORDS SUMMARY | 2025-01-21 14:39 | XMS_ITS | Encounter Summary ---
Author Organization [facility] Address [address] [place] [address] Care Team Providers Care Radio Interference Investigator Name Role Phone Cindy Tapia DNP Primary Care Provider [phone] Encounter Details Date Type Department Care Team (Late st Contact Info) Description 09/04/2018 Scanned Document [facility] [place] [address] [place] [address] External, Provider Social History Tobacco Use Types [...] on filedocumented in this encounter Care Teams Radio Interference Investigator Relationship Specialty Start Date End Date Cindy Tapia DNP PCP - General 05/03/17 08/28/22 documented as of this encounter
--- OUTSIDE RECORDS SUMMARY | 2025-01-21 14:39 | XMS_ITS | Encounter Summary ---
Author Organization [facility] Address [address] [place] [address] Care Team Providers Care Fire Pot Operator Name Role Phone Cindy Tapia APRN Primary Care Provider [phone] Anette Parham PEANUT PICKER Unavailable [phone] Tho Mirza MD Unavailable [phone] Antione Pickett PEANUT PICKER Unavailable [phone] Keely Zelaya APRN Primary Care Provider [phone] [facility] Department Of Women's Unava ilable Unavailable Encounter Details Date Type Department Care Team (Late st Contact Info) Description 08/14/2021 Scanned Document [facility] Neurology [place] [address] [place] [address] Antione Pickett [place] [address] Social History Tobacco Use Types Packs/Day Years [...] on filedocumented in this encounter Care Teams Fire Pot Operator Relationship Specialty Start Date End Date Cindy Tapia APRN PCP - General Family Medicine 10/06/18 11/28/22 Keely Zelaya APRN [address] [place] [address] PCP - General 11/29/22 [facility] [address] [place] [address] PCP - Family Medicine Obstetrics and Gynecology 07/28/23 Anette Parham APRN Nurse Practitioner Gastroenterology 06/15/21 Tho Mirza MD Literacy Coach Cardiovascular Disease 06/15/21 [place] [address] Neurology Neurology 09/25/21 07/28/23 documented as of this encounter
--- OUTSIDE RECORDS SUMMARY | 2025-01-21 14:39 | XMS_ITS | Encounter Summary ---
Author Organization [facility] Address [address] [place] [address] Care Team Providers Care Bar Waiter/Waitress Name Role Phone Randee Rodarte MD Primary Care Provider [phone] Randee Rodarte MD Unavailable [phone] Encounter Details Date Type Department Care Team (Late st Contact Info) Description 08/01/2012 Orders Only [facility] [address] [place] [address] Social History Tobacco Use Types Packs/Day Years [...] on filedocumented in this encounter Care Teams Bar Waiter/Waitress Relationship Specialty Start Date End Date Randee Rodarte MD [address] [place] [address] PCP - General 05/27/23 Randee Rodarte MD [address] [place] [address] PCP - Backup PCP Pediatrics 11/21/23 documented as of this encounter
--- OUTSIDE RECORDS SUMMARY | 2025-01-21 14:39 | XMS_ITS | Clinical Summary ---
Author Organization [facility] Address [address] [place] [address] Care Team Providers Care Skip Miner Blasting Name Role Phone Provider, [facility] Unavailab le Unavailable Keely Zelaya APRN Primary Care Provider [phone] Keely Zelaya APRN Unavailable [phone] Allergies Active Allergy Reactions Criticality Noted Date [...] Vitamin D supplementation is reasonable in the [facility] between July and January - Protect yourself [...] living will and is available on the [place] [employer] website: [email or web address] Fasting labs Cervical cancer screening: [...] PM EST): Referred to genetic counseling [facility] 09/12/2020 Immunizations Immunization Administration Dates Next Due DTaP 06/12/2000, 7,1995,1995 [...] Vaccine ( season) 2024 09/29/2021, 11/25/2020, 10/26/2020 DTaP,Tdap,and Td Vaccines (8 - Td or Tdap) 08/18/2024 08/18/2014, 05/16/2007, 06/12/2000, Additional history exists Influenza Vaccine (Season Ended) 2025 09/17/2022, 08/15/2020, 08/15/2020, Additional history exists Pap Smear 02/25/2027 02/26/2024, [...] 5 Years) and At-Risk Patients (6 to 49 [...] 4:13 PM EDT) Case Report Cytology ?Case: [id number] ? Authorizing Provider: ??Saad Ventura MD ?Collected: ? 02/26/2024 1613 ? Ordering Location: ? [facility] Department of Received: ?02/27/2024 0813 ? [facility] ? First Screen: ?Peg, Arabella, BS CT ? (ASCP) ? Pathologist: ? Suzette Espinosa MD ? Specimen: ?Cytopathology, screening PAP test, Cervix ? 03/06/2024 1:18 PM EDT [facility] Clinical Information Routine screening 03/06/2024 1:18 PM EDT [facility] LMP Not provided 03/06/2024 1:18 PM EDT [facility] Interpretation Low grade squamous intraepithelial lesion(A) 03/06/2024 1:18 PM EDT [facility] at 1318 EDT Specimen Adequacy Satisfactory for evaluation, endocervical/shields sformation zone component present 03/06/2024 1:18 PM EDT [facility] Specimen Processing Thin Prep pap with manual screen/rescreen or review 03/06/2024 1:18 PM EDT [facility] Embedded Images 1:18 PM EDT [facility] Brushing Cervix uteri structure / Unknown Non-blood Collection / Unknown 02/26/2024 4:13 PM EDT 02/27/2024 8:13 AM EDT Saad Ventura MD LAB PATHOLOGY/CYTOLOGY ORDERABLE S Final Result [facility] [address] [place] [address], [place] [phone] * HEPATITIS C AB W/REFL TO HCV RNA, QN, PCR (Q) (10/07/2023 1:18 PM EST) [facility] HEPATITIS C ANTIBODY NON-REACT SARAH NON-REACT SARAH Asker Comment: HCV antibody was non-reactive. There is no laboratory evidence of HCV infection. In most cases, no further action is required. However, if recent HCV exposure is suspected, a test for HCV RNA (test code 52610) is suggested. For additional information please refer to http://education.Goodreads.Flaviar/faq/KNO90f9 (This link is being provided for informational/ educational purposes only.) Blood 10/07/2023 1:18 PM EST 10/07/2023 1:26 PM EST Narrative [facility] - 10/09/2023 12:17 PM EST FASTING:NO PATIENT REFUSED SOME TESTING; PATIENT ENCOURAGED TO RETURN. FASTING: NO Keely Zelaya APRN AMB [facility] LAB ORDERABLES Final Result [facility] [address] [place] [phone] * HIV 1/2 ANTIGEN/ANTIBODY,FOURTH GENERATION W/RFL (Q) (10/07/2023 1:18 PM EST) [facility] HIV AG/AB, 4TH GEN NON-REACT SARAH NON-REACT SARAH Enevate-Enevate Comment: HIV-1 antigen and HIV-1/HIV-2 antibodies were [...] ?? For additional information please refer to http://education.HolyTransaction/faq/YSP682 (This link is being provided for informational/ [...] LAB ORDERABLES Final Result Performing Organization Address City/State/[facility] Co de Phone Number [facility] [address] [place] [phone] from Last 3 Months or Most Recently Relevant to Health Maintenance Insurance [facility] Care Teams Skip Miner Blasting Relationship Specialty Start Date End Date eKely Zelaya APRN [address] [place] [address] [id number] PCP - General Internal Medicine 09/17/22 Keely Zelaya APRN [address] [place] [phone] PCP - Insurance Payer PCP 08/05/23 Provider, [facility] 07/31/22
--- OUTSIDE RECORDS SUMMARY | 2025-01-21 14:39 | XMS_ITS | Encounter Summary ---
Author Organization [facility] Address [address] [place] [address] Care Team Providers Care Aerial Tram Operator Name Role Phone Cindy Tapia DNP Primary Care Provider [phone] Encounter Details Date Type Department Care Team (Late st Contact Info) Description 05/19/2018 Scanned Document [facility] [address] [place] [address] Cindy Tapia DNP [address] [phone] Social History Tobacco Use Types Packs/Day Years [...] on filedocumented in this encounter Care Teams Aerial Tram Operator Relationship Specialty Start Date End Date Cindy Tapia DNP PCP - General 05/03/17 08/28/22 documented as of this encounter
== END 2025-01-21 14:15 | disposition home or self-care (01) ==
LOC: HO.HWS 13:25
PROVIDERS: PCP Registered Nurse; Visit Provider Advanced Practice Midwife
DX: Z23 Encounter for immunization (principal); Z34.90 Encounter for supervision of normal pregnancy, unspecified, unspecified trimester
CPT/HCPCS: 25942

== ENCOUNTER → 2025-01-21 13:25 | Outpatient (BNVA) | payer OTHER, SELFPAY | PROVIDERS: PCP Registered Nurse; Visit Provider Advanced Practice Midwife | DX: Z23 Encounter for immunization (principal); Z34.83 Encounter for supervision of other normal pregnancy, third trimester; Z3A.33 33 weeks gestation of pregnancy | CPT/HCPCS: 81003; 90471; 90715 ==

== ENCOUNTER 2025-02-03 14:04 | Outpatient (AMB) | payer OTHER, SELFPAY ==
[2025-02-03 14:15] VITALS: BP 102/56; BMI 26.8
--- NOTE | 2025-02-03 14:15 | MHC.OFFVISPN ---
Intake Vital Signs 02/03/25 14:15 Height 5 ft 4 in Weight 156 lb BMI 26.8 BP 102/56 L Intake Visit Reasons: NATHALY Allergies amoxicillin Allergy (Verified 02/03/25 14:16) Rash Patient : Yes PFSH Medical History Anemia affecting Right sciatic nerve pain Dizziness Trigeminal neuralgia POTS (postural orthostatic tachycardia syndrome) Supervision of normal in second trimester LGSIL on Pap smear of cervix Animal bite Surgical History Ovarian torsion Angela teeth removed Family History Mother Hx of malignant neoplasm of female breast Father Hx of deep venous thrombosis Brother Anxiety and depression Sister Anxiety and depression Other Breast cancer Social History Household Members: Spouse, Significant Other and Children Alcohol intake: former Patient Tobacco Use Status: Never used Tobacco Patient : Yes Current occupational status: employed Gender identity: Female Female Reproductive History Menstrual Age of Menarche: 15 History History 3 Elective abortions 0 Para 1 Spontaneous abortions 1 Hx # Term Pregnancies 1 Ectopic pregnancies 0 Hx # Pregnancies 0 Multiple births 0 Past Pregnancies Del. Date GA/Weeks Outcome Route Wt Inf Gender Labor Gena Anesthesia Location Provider Complicate 10/03/14 39 live - full term vaginal delivery 7 lb 13 oz Male 16 hours epidural [facility] none 07/12/22 8 spontaneous Visit CL[facility]ENCE Calculator Estimated Delivery Date Method Current WG Current Estimate 03/10/25 LMP (Certain) 35w 0d Other Estimates 03/14/25 Ultrasound #1 34w 3d Expected Delivery Route/Plan vaginal delivery Specific Issues/Plans 29Yr. old G 3 P 1 EDC:03/10/25 by LMP Blood type: AB positive Problem List: 1. Anxiety-no meds/counseling. EDPS-5. Had a therapist. 2. History of UTI and yeast infections 3. LGSIL (age 19), followed by negative results. Pap 08/12/2024=ASCUS, HPV negative, repeat pp. 4. POTS-cardiology evaluation 11/09/2023, echo cardiogram to be scheduled... Testing: Panorama/and or First Tri screen: risk NT scan: 08/26/24 AFP: FAS: echogenic foci noted, left lateral placenta, plan follow up 3rd trimester ultrasound. Glucose: early 28 wk glucose: 107 CBC 1st Tri: 28 wk. CBC: 9.8/29.6 GBS: Vaccinations: Flu: Covid: Tdap: Given 01/21/2025. 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 Transportation: own Labor, and Concerns: partner/FOB- Trino Labor support: Trino Plan: Infant Feeding Plans: Breast-feeding, did not breastfeed successfully after initial attempt due to multiple concerns control: OB Visit Log Initial Weight: 120 lb Date <del>?</del> EGA Weight Gest Week Fundal Ht Present FHR move Efface % Edema BP PrePreg We Weight GTT <del>?</del> Glucose LV Protein Blood Type 08/10/24 <del>?</del> 9w 5d 128 lb 4 oz (+8 lb 4 oz) 128 lb 4 oz <del>?</del> 08/12/24 <del>?</del> 10w 0d 121 lb (+16 oz) 9 110/70 121 lb <del>?</del> 09/11/24 <del>?</del> 14w 2d 126 lb 8 oz (+6 lb 8 oz) 16 150 108/72 126 lb 8 oz <del>?</del> 10/08/24 <del>?</del> 18w 1d 126 lb (+6 lb) 19 150 110/74 126 lb <del>?</del> 0116/25 <del>?</del> 22w 1d 134 lb (+14 lb) 22 150 active 112/68 134 lb <del>?</del> 12/09/24 <del>?</del> 27w 0d 144 lb (+24 lb) 26 140 active 110/60 144 lb <del>?</del> 12/24/24 <del>?</del> 29w 1d 147 lb (+27 lb) 30 140 active 100/60 147 lb <del>?</del> 01/07/25 <del>?</del> 31w 1d 150 lb (+30 lb) 31 140 active 98/60 150 lb <del>?</del> 01/21/25 <del>?</del> 33w 1d 153 lb (+33 lb) 32 140 active 112/70 153 lb <del>?</del> 02/03/25 <del>?</del> 35w 0d 156 lb (+36 lb) 34 150 active 102/56 156 lb <del>?</del> Notes Visit Date: 02/03/25 Last Updated by: Ynes Guajardo CNM Note author: Ynes Guajardo CNM. 35wk. NATHALY. Taking PNV, Doing well with no concerns. Good appetite, stays well hydrated. Denies any LOF, VB, abd. pain or urinary symptoms. She reports had her ultrasound at [facility] this afternoon. Has a appointment on Saturday for intake and provider visit on Saturday. Reviewed: PTL s/s-LOF/Ctx's/VB, when to seek emergent care. discomforts, self help measures. FKC and when to call the office for further eval. Encouraged a healthy well balanced diet, regular walking/exercise in . Hydrate well, 10-12 glasses of water daily. Keep appointment at [facility] for transfer care. Call office when she delivers notify . Visit Date: 01/21/25 Last Updated by: Ynes Guajardo CNM Note author: Ynes Guajardo CNM. 33.1wk. NATHALY. Taking PNV, Doing well with no concerns. Good appetite, stays well hydrated. Denies any LOF, VB, abd. pain or urinary symptoms. Trino present for visit today. Has transfer appointment at [facility] for intake on February 05, MD appointment February 08. Recently diagnosed with polyhydramnios has a ultrasound scheduled every Saturday at [facility]. Discuss the transfer process. Reviewed: PTL s/s-LOF/Ctx's/VB, when to seek emergent care. discomforts, self help measures. FKC and when to call the office for further eval. Encouraged a healthy well balanced diet, regular walking/exercise in . Hydrate well, 10-12 glasses of water daily. Tdap today. RTO 2wks. Visit Date: 01/07/25 Last Updated by: Ynes Guajardo CNM Note author: Ynes Guajardo CNM. 31.1wk. NATHALY. Taking PNV, Doing well with no concerns. Good appetite, stays well hydrated. Denies any LOF, VB, abd. pain or urinary symptoms. Reviewed: PTL s/s-LOF/Ctx's/VB, when to seek emergent care. discomforts, self help measures. FKC and when to call the office for further eval. Encouraged a healthy well balanced diet, regular walking/exercise in . Hydrate well, 10-12 glasses of water daily. Plan Tdap at next visit RTO 2wks. Visit Date: 12/24/24 Last Updated by: Ynes Guajardo CNM Note author: Ynes Guajardo CNM. 29.1wk. NATHALY. Taking PNV, she reports iron is causing stomach aches. Denies any LOF, VB, abd. pain or urinary symptoms. EPDS-4. Having concerns about her work requirements to be in the IV room for many days, an area of work where she can not have fluids or a bathroom break. She request a note to be exempt from the area. Due to her medical history of POTS, anemia in , note will be given today to excuse her from working in the IV room. Reviewed: Lab work reviewed- .06/18.6. glucose 107. Unable to tolerate iron due to GI effects plan to refer her to Hematology for iron infusions. Ultrasound follow up ordered for a echogenic foci. PTL s/s-LOF/Ctx's/VB, when to seek emergent care. discomforts, self help measures. FKC and when to call the office for further eval. Encouraged a healthy well balanced diet, regular walking/exercise in . Hydrate well, 10-12 glasses of water daily. Note given not to work in the IV room today. RTO 2wks. Visit Date: 12/09/24 Last Updated by: Ynes Guajardo CNM Note author: Ynes Guajardo CNM. 27wk. NATHALY. Taking PNV, Doing well with no concerns. Good appetite, stays well hydrated. Denies any LOF, VB, abd. pain or urinary symptoms. History right sciatic pain worsening with . History of anxiety onset after her previous miscarriage, she reports she tends to be an over thinker. Coping well on her own and had a therapist she can contact. Having concerns with the work environment due to restrictions on being able to hydrate in have a break in the IV room further impact her POTS. Reviewed: PTL s/s-LOF/Ctx's/VB, when to seek emergent care. discomforts, self help measures. Treatment options for anxiety, self-help measures, advised to reach out to therapist and schedule appointments for support. 28 week labs ordered. Advised to speak to her public address system mechanic regarding a work note for FMLA due to POTS. Referral to PT placed. FKC and when to call the office for further eval. Encouraged a healthy well balanced diet, regular walking/exercise in . Hydrate well, 10-12 glasses of water daily. RTO 2wks. Visit Date: 11/05/24 Last Updated by: Ynes Guajardo CNM Note author: Ynes Guajardo CNM. 22.1wk. NATHALY. Taking PNV, Doing well with no concerns. Good appetite, trying to hydrate. Denies any LOF, VB, abd. pain or urinary symptoms. Has seen a public address system mechanic this week, is due to have an echo scheduled. Reviewed recent FAS findings of cardiac echogenic foci, is quite anxious about it despite consultation with [facility] provider reassuring her plan a follow up ultrasound, okayed with previously per [facility] department. She reports it is hard for her to hydrate if at all at work particularly the day she has to be scheduled in the IV facility area as she can not drink or go to the bathroom area for 4 hours at a time. Reviewed: PTL s/s-LOF/Ctx's/VB, when to seek emergent care at [facility]. Strongly recommend to complete her labs today. 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 RTO 4 wks. Visit Date: 10/08/24 Last Updated by: Ynes Guajardo CNM Note author: Ynes Guajardo CNM. 18.1wk. NATHALY. Taking PNV, Doing well with no concerns. Good appetite, stays well hydrated. Reports she still has nausea throughout the day but no longer is vomiting. Taking her B6 vitamins. Has felt movements here in there. FAS is scheduled for October 22. Denies any LOF, VB, abd. pain or urinary symptoms. Has not completed her labs. Reviewed: Pap smear results-ascus negative HPV, sign for [facility] Pap/colposcopy results. She had normal Paps following the initial LGSIL which was approximately 10 years ago. PTL s/s-LOF/Ctx's/VB, when to seek emergent care. discomforts, self help measures. Encouraged a healthy well balanced diet, regular walking/exercise in . Hydrate well, 10-12 glasses of water daily. Reminded to register for her labs and have them done tomorrow patient agrees to the plan of care. RTO 4wks. Visit Date: 09/11/24 Last Updated by: Ynes Guajardo CNM Note author: Ynes Guajardo CNM. 14.2wk. NATHALY. Taking PNV, Doing well with concerns: Has daily nausea and vomiting that improves throughout the day able to eat later in the evening. 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 Previous note to excuse work in that area was given for 2 weeks. Stays well hydrated. Denies any LOF, VB, abd. pain or urinary symptoms. Reports 2 episodes of right-sided ligament pain resolved with rest and heat. Reviewed: PTL s/s-LOF/Ctx's/VB, when to seek emergent care. discomforts, self help measures. Note for 30 days to excuse from IV room until improvement. Hydrate well, 10-12 glasses of water daily. FAS ordered for 5 weeks. RTO 4wks. Visit Date: 08/12/24 Last Updated by: Ynes Guajardo CNM Note author: Ynes Guajardo CNM. 10wk. IOB. Taking PNV, B6 and Unisom for nausea, Doing well with no concerns. Good appetite, attempts to stays well hydrated. Denies any LOF, VB, abd. pain or urinary symptoms. She admits to increased yellow discharge without any symptoms. History of LGSIL 1 year ago, previous care in [place]. She reports regular known menstrual cycles lasting 28-31 days has been tracking them for over 2 years. EDC confirmed to LMP 03/10/2024. Reviewed: Pelvic pain/ VB, when to seek emergent care. Delivery and other services at [facility] if decides to transfer care. Pap, GC chlamydia and BV panel obtained await results for plan of care. Encouraged a healthy well balanced diet, regular walking/exercise in . Hydrate well, 10-12 glasses of water daily. Check with health insurance again speak with the supervisor water treatment plant about concerns for tier coverage w/providers and lab services. Panoramic ordered labs pending based on patient's clarification on coverage on where to have her labs drawn. RTO 4wks. Visit Date: 08/10/24 Last Updated by: Anna Goddard LPN Cindy is here today for her Nurse intake. LMP 06/03/24 CLARENCE 03/10/25. CLARENCE by U/S on 08/05/24= 03/14/25. Pt is a , Pt was a surrogate, but miscarried at 8 wks. Current partner is FOB #2. Pt is employed at [employer] and also going to school for [employer] She has been having issues with nausea, but is keeping well hydrated and eating more frequent, smaller amounts of food. Pt denies any use of MJ or illecits. Discussed labs including CF testing and UDS. [place] [facility] and [place]. Discussed Panorama testing, and pt will call Ins co to confirm coverage. Pts first was wnl, and had vaginal delivery with Epidural. Pt aware her u/s and [place] [facility]. pt denies any family Hx of diabetes. Informed pt we recommend flu vaccine in and pt accepts. Discussed how to reach MD after hours and to be seen in [facility] for any OB issues. OB PE scheduled for 08/12/24. Results AMB Urinalysis, Automated UA Leukoctes 0 Jovani/uL Last Edit by Janet Land [facility] on 02/03/25 14:19 UA Nitrite Negative Last Edit by Janet Land [facility] on 02/03/25 14:19 UA Urobilinogen 0 mg/dL Last Edit by Janet Land [facility] on 02/03/25 14:19 UA Protein 0.5 mg/dL Last Edit by Janet Land [facility] on 02/03/25 14:19 UA pH 8.0 Last Edit by Janet Land [facility] on 02/03/25 14:19 UA Blood 0 Clayton/uL Last Edit by Janet Land [facility] on 02/03/25 14:19 UA Specific [place] 1.010 Last Edit by Janet Land [facility] on 02/03/25 14:19 UA Ketone Negative Last Edit by Janet Land [facility] on 02/03/25 14:19 UA Bilirubin 0 mg/dL Last Edit by Janet Land [facility] on 02/03/25 14:19 UA Glucose 0 mg/dL Last Edit by Janet Land [facility] on 02/03/25 14:19 Results Reviewed Results Reviewed: Laboratory Last Values Urine pH (Auto) 8.0 02/03/25 14:16 Specific [place] (Auto) 1.010 02/03/25 14:16 Urine Protein (Auto) 0.5 mg/dL 02/03/25 14:16 Glucose (UA)(Auto) 0 mg/dL 02/03/25 14:16 Urine Ketones (Auto) Negative 02/03/25 14:16 Urine Blood (Auto) 0 Clayton/uL 02/03/25 14:16 Urine Nitrite (Auto) Negative 02/03/25 14:16 Urine Bilirubin (Auto) 0 mg/dL 02/03/25 14:16 Urine Urobilinogen (Auto) 0 mg/dL 02/03/25 14:16 Leukocyte Esterase (Auto) 0 Jovani/uL 02/03/25 14:16 Coding Level of Care Code Clyde Assessment & Plan Assessment & Plan Orders: Orders AMB Urinalysis Automated Today Z34.90 - Encounter for supervision of normal , unspecified, unspecified trimester
--- OUTSIDE RECORDS SUMMARY | 2025-02-03 16:49 | XMS_ITS | Encounter Summary ---
Author Organization [facility] Address [address] [place] [address] Care Team Providers Care Online Communications Specialist Name Role Phone Anette Parham FIELD CONSULTANT Unavailable [phone] Tho Mirza MD Unavailable [phone] Antione Pickett FIELD CONSULTANT Unavailable [phone] Keely Zelaya APRN Primary Care Provider [phone] [facility] Unava ilable Unavailable Encounter Details Date Type Department Care Team (Late st Contact Info) Description 12/14/2022 Scanned Document [facility] Heart & Vascular [place] - Electrophysiology [address] [place] [phone] Terry Lakhani MD [address] [place], [place] [id number] Social History Tobacco Use Types Packs/Day Years Used Date Smoking Tobacco: Never Smokeless Tobacco: Never Alcohol Use Standard Drinks/Week Comments Not Currently 0 (1 standard drink = 0.6 oz pur e alcohol) 0-2 a week Comments No Sex and Gender Information Value Date Recorded Sex Assigned at Female 11/29/2022 4:49 PM EST Legal Sex Female 8:58 PM EDT Gender Identity Female 11/29/2022 4:49 PM EST [...] on filedocumented in this encounter Care Teams Online Communications Specialist Relationship Specialty Start Date End Date Keely Zelaya APRN [address] [place] [phone] PCP - General 11/29/22 [facility] [address] [place], [place] [id number] PCP - Family Medicine Obstetrics and Gynecology 07/28/23 Anette Parham APRN Nurse Practitioner Gastroenterology 06/15/21 Tho Mirza MD Chief Informatics Officer Cardiovascular Disease 06/15/21 [place] [address] Neurology Neurology 09/25/21 07/28/23 documented as of this encounter
--- OUTSIDE RECORDS SUMMARY | 2025-02-03 16:49 | XMS_ITS | Encounter Summary ---
Author Organization [facility] Address [address] [place] [address] Care Team Providers Care Relationship Assoc Name Role Phone Cindy Tapia DNP Primary Care Provider [phone] Encounter Details Date Type Department Care Team (Late st Contact Info) Description 09/08/2021 Scanned Document [facility] [place] [address] [place] [address] External, Provider Social History Tobacco Use Types [...] documented as of this encounter Care Teams Relationship Assoc Relationship Specialty Start Date End Date Cindy Tapia DNP PCP - General 05/03/17 08/28/22 documented as of this encounter
--- OUTSIDE RECORDS SUMMARY | 2025-02-03 16:49 | XMS_ITS | Encounter Summary ---
Author Organization [facility] Address [address] [id number] Care Team Providers Care Lease Administration Analyst Name Role Phone Anette Parham CABINET ASSEMBLER Unavailable [phone] Tho Mirza MD Unavailable [phone] Antione Pickett CABINET ASSEMBLER Unavailable [phone] Keely Zelaya APRN Primary Care Provider [phone] [facility] Department Of Women's Unava ilable Unavailable Encounter Details Date Type Department Care Team (Late st Contact Info) Description 12/05/2022 Telephone [facility] Heart & Vascular [place] - Electrophysiology [address] [place] [address] Terry Lakhani MD [address] [place], [place] [id number] Social History Tobacco Use Types Packs/Day Years [...] on filedocumented in this encounter Care Teams Lease Administration Analyst Relationship Specialty Start Date End Date Keely Zelaya APRN [address] [place] [address] PCP - General 11/29/22 [facility] [address] [place], [place] [address] PCP - Family Medicine Obstetrics and Gynecology 07/28/23 Anette Parham APRN Nurse Practitioner Gastroenterology 06/15/21 Tho Mirza MD Ethylene Plant Operator Cardiovascular Disease 06/15/21 [place] [address] Neurology Neurology 09/25/21 07/28/23 documented as of this encounter
--- OUTSIDE RECORDS SUMMARY | 2025-02-03 16:49 | XMS_ITS | Encounter Summary ---
Author Organization [facility] Address [address] [place] [address] Care Team Providers Care Jet Inspector Name Role Phone Cindy Tapia DNP Primary Care Provider [phone] Encounter Details Date Type Department Care Team (Late st Contact Info) Description 10/10/2018 Scanned Document [facility] [place] [address] [place] [address] External, Provider Social History Tobacco Use Types [...] documented as of this encounter Care Teams Jet Inspector Relationship Specialty Start Date End Date Cindy Tapia DNP PCP - General 05/03/17 08/28/22 documented as of this encounter
--- OUTSIDE RECORDS SUMMARY | 2025-02-03 16:49 | XMS_ITS | Clinical Summary ---
Author Organization [facility] [address] [facility] Address [address] [place] [address] Phone Care Team Providers Care Copywriting Intern Name Role Phone Unavailable Primary Care Provider [...]
--- OUTSIDE RECORDS SUMMARY | 2025-02-03 16:49 | XMS_ITS | Encounter Summary ---
Author Organization [facility] Address [address] [place] [address] Care Team Providers Care Silk Conditioner Name Role Phone Cindy Tapia DNP Primary Care Provider [phone] Encounter Details Date Type Department Care Team (Late st Contact Info) Description 09/08/2020 Scanned Document [facility] [place] [address] [place] [address] External, Provider Social History Tobacco Use Types [...] documented as of this encounter Care Teams Silk Conditioner Relationship Specialty Start Date End Date Cindy Tapia DNP PCP - General 05/03/17 08/28/22 documented as of this encounter
--- OUTSIDE RECORDS SUMMARY | 2025-02-03 16:49 | XMS_ITS | Encounter Summary ---
Author Organization [facility] Address [address] [place] [address] Care Team Providers Care Director Of Reservations Name Role Phone Cindy Tapia DNP Primary Care Provider [phone] Encounter Details Date Type Department Care Team (Late st Contact Info) Description 08/05/2021 EpicOnHand Encounter [facility] [place] [address] [place] [address] Yue Barton MD [address] [place] [address] Social History Tobacco Use Types Packs/Day Years [...] documented as of this encounter Care Teams Director Of Reservations Relationship Specialty Start Date End Date Cindy Tapia DNP PCP - General 05/03/17 08/28/22 documented as of this encounter
--- OUTSIDE RECORDS SUMMARY | 2025-02-03 16:49 | XMS_ITS | Encounter Summary ---
Author Organization [facility] Address [address] [id number] Care Team Providers Care Delivery [place] Name Role Phone Cindy Tapia APRN Primary Care Provider Anette Parham CASTING MOLDER Unavailable [phone] Tho Mirza MD Unavailable Antione Pickett CASTING MOLDER Unavailable [phone] Keely Zelaya APRN Primary Care Provider [phone] On License Of [facility] Department Of Women's Unava ilable Unavailable Encounter Details Date Type Department Care Team (Late st Contact Info) Description 10/27/2021 Scanned Document [facility] [place] [address] [id number] [place] [id number] Bell Moss MD [address] [place] [address] Social History Tobacco Use Types Packs/Day [...] on filedocumented in this encounter Care Teams Delivery [place] Relationship Specialty Start Date End Date Cindy Tapia APRN PCP - General Family Medicine 10/06/18 11/28/22 Keely Zelaya APRN [address] [place] [address] PCP - General 11/29/22 [facility] [address] [place] [address] PCP - Family Medicine Obstetrics and Gynecology 07/28/23 Anette Parham APRN Nurse Practitioner Gastroenterology 06/15/21 Tho Mirza MD Sound Printer Cardiovascular Disease 06/15/21 [place] [address] Neurology Neurology 09/25/21 07/28/23 documented as of this encounter
--- OUTSIDE RECORDS SUMMARY | 2025-02-03 16:49 | XMS_ITS | Encounter Summary ---
Author Organization [facility] Address [address] [place] [address] Care Team Providers Care Drill Runner Name Role Phone Cindy Tapia DNP Primary Care Provider [phone] Encounter Details Date Type Department Care Team (Late st Contact Info) Description 08/11/2021 Scanned Document [facility] [place] [address] [place] [address] External, Provider Social History Tobacco Use Types [...] documented as of this encounter Care Teams Drill Runner Relationship Specialty Start Date End Date Cindy Tapia DNP PCP - General 05/03/17 08/28/22 documented as of this encounter
--- OUTSIDE RECORDS SUMMARY | 2025-02-03 16:49 | XMS_ITS | Encounter Summary ---
Author Organization [facility] Address [address] [place] [address] Care Team Providers Care Electric Truck Crane Operator Name Role Phone Cindy Tapia DNP Primary Care Provider [phone] Encounter Details Date Type Department Care Team (Late st Contact Info) Description 06/15/2021 Scanned Document [facility] [place] [address] [place] [address] External, Provider Social History Tobacco Use Types [...] documented as of this encounter Care Teams Electric Truck Crane Operator Relationship Specialty Start Date End Date Cindy Tapia DNP PCP - General 05/03/17 08/28/22 documented as of this encounter
--- OUTSIDE RECORDS SUMMARY | 2025-02-03 16:50 | XMS_ITS | Clinical Summary ---
Author Organization [facility] Address [address] [place] [address] Care Team Providers Care Rules Examiner Name Role Phone Provider, [facility] Unavailab le Unavailable Keely Zelaya APRN Primary Care Provider [phone] Keely Zelaya APRN Unavailable [phone] Allergies Active Allergy Reactions Criticality Noted Date [...] Vitamin D supplementation is reasonable in the [facility] between July and January - Protect [...] will and is available on the [place] [employer] Machine OperatorCivil Engineering Assistant's Office website: https://portal.vt.gov/AG/Health-Issues/Guyzdcahkrkm-Jnrbeh-Hiqk-Laws HEALTH MAINTENANCE Fasting labs Cervical cancer screening: [...] 9:50 PM EST): Referred to genetic counseling [facility] 09/12/2020 Immunizations Immunization Administration Dates Next Due [...] 4:13 PM EDT) Case Report Cytology ?Case: [id number] ? Authorizing Provider: ??Saad Ventura MD ?Collected: ? 02/26/2024 1613 ? Ordering Location: ? [facility] Department of Received: ?02/27/2024 0813 ? [facility] [place] ? First Screen: ?Peg, Arabella, BS CT ? (ASCP) ? Pathologist: ? Suzette Espinosa MD ? Specimen: ?Cytopathology, screening PAP test, Cervix ? 03/06/2024 1:18 PM EDT [facility] Clinical Information Routine screening 03/06/2024 1:18 PM EDT [facility] LMP Not provided 03/06/2024 1:18 PM EDT [facility] Interpretation Low grade squamous intraepithelial lesion(A) 03/06/2024 1:18 PM EDT [facility] at 1318 EDT Specimen Adequacy Satisfactory for evaluation, endocervical/shields sformation zone component present 03/06/2024 1:18 PM EDT [facility] Specimen Processing Thin Prep pap with manual screen/rescreen or review 03/06/2024 1:18 PM EDT [facility] Embedded Images 1:18 PM EDT [facility] Brushing Cervix uteri structure / Unknown Non-blood Collection / Unknown 02/26/2024 4:13 PM EDT 02/27/2024 8:13 AM EDT Saad Ventura MD LAB PATHOLOGY/CYTOLOGY ORDERABLE S Final Result [facility] [address] [place] [address], [place] [phone] * HEPATITIS C AB W/REFL TO HCV RNA, QN, PCR (Q) (10/07/2023 1:18 PM EST) [facility] HEPATITIS C ANTIBODY NON-REACT SARAH NON-REACT SARAH [employer] Comment: HCV antibody was non-reactive. There is no laboratory evidence of HCV infection. In most cases, no further action is required. However, if recent HCV exposure is suspected, a test for HCV RNA (test code 76736) is suggested. For additional information please refer to http://education.Crowd[employer]der.[employer]/faq/KYR88b1 (This link is being provided for informational/ educational purposes only.) Blood 10/07/2023 1:18 PM EST 10/07/2023 1:26 PM EST Narrative [facility] - 10/09/2023 12:17 PM EST FASTING:NO PATIENT REFUSED SOME TESTING; PATIENT ENCOURAGED TO RETURN. FASTING: NO Keely Zelaya APRN [facility]B [facility] LAB ORDERABLES Final Result [facility] [employer] [address] [place] [phone] * HIV 1/2 ANTIGEN/ANTIBODY,FOURTH GENERATION W/RFL (Q) (10/07/2023 1:18 PM EST) [facility] HIV AG/AB, 4TH GEN NON-REACT SARAH NON-REACT SARAH [employer] Comment: HIV-1 antigen and HIV-1/HIV-2 antibodies were [...] ?? For additional information please refer to http://education.TurboTranslations/faq/KDX001 (This link is being provided for informational/ [...] LAB ORDERABLES Final Result Performing Organization Address City/State/[facility] Co de Phone Number [facility] [employer] [address] [place] [phone] from Last 3 Months or Most Recently Relevant to Health Maintenance Insurance [facility] Care Teams Rules Examiner Relationship Specialty Start Date End Date Keely Zelaya APRN [address] [place] [address] PCP - General Internal Medicine 09/17/22 Keely Zelaya APRN [address] [place] [address] PCP - Insurance Payer PCP 08/05/23 Provider, [facility] 07/31/22
--- OUTSIDE RECORDS SUMMARY | 2025-02-03 16:50 | XMS_ITS | Clinical Summary ---
Author Organization [facility] Address [address] [place] [address] Care Team Providers Care Motor Tester Name Role Phone Randee Rodarte MD Primary Care Provider [phone] Randee Rodarte MD Unavailable [phone] Allergies Active Allergy Reactions Criticality Noted Date Comments Amoxil 01/15/2014 [employer] Comment: Reaction Date: 28May2013; Active Problems Problem [...] age to complete this topic Care Teams Motor Tester Relationship Specialty Start Date End Date Randee Rodarte MD [address] [place] [address] PCP - General 05/27/23 Randee Rodarte MD [facility] [place] [address] PCP - Backup PCP Pediatrics 11/21/23
--- OUTSIDE RECORDS SUMMARY | 2025-02-03 16:50 | XMS_ITS | Encounter Summary ---
Author Organization [facility] [employer] [facility] Address [address] [place] [address] Care Team Providers Care Cell Support Operator Name Role Phone Cindy Tapia DNP Primary Care Provider [phone] Encounter Details Date Type Department Care Team (Late st Contact Info) Description 10/09/2012 Abstract Pediatric Nephrology [address] [place] [address], [address] [place] [address] Crys Chen MD [address] [place] [address] UTI (urinary tract infection) (Primary [...] ureter documented in this encounter Care Teams Cell Support Operator Relationship Specialty Start Date End Date Cindy Tapia DNP PCP - General 05/03/17 08/28/22 documented as of this encounter
--- OUTSIDE RECORDS SUMMARY | 2025-02-03 16:50 | XMS_ITS | Encounter Summary ---
Author Organization [facility] Address [address] [place] [address] Care Team Providers Care Recycling Manager Name Role Phone Cindy Tapia DNP Primary Care Provider [phone] Encounter Details Date Type Department Care Team (Late st Contact Info) Description 09/04/2018 Scanned Document [facility] [place] [address] [place] [address] External, Provider Social History Tobacco Use Types [...] on filedocumented in this encounter Care Teams Recycling Manager Relationship Specialty Start Date End Date Cindy Tapia DNP PCP - General 05/03/17 08/28/22 documented as of this encounter
--- OUTSIDE RECORDS SUMMARY | 2025-02-03 16:50 | XMS_ITS | Encounter Summary ---
Author Organization [facility] Address [address] [place] [address] Care Team Providers Care Patient Relations Director Name Role Phone Cindy Tapia DNP Primary Care Provider [phone] Encounter Details Date Type Department Care Team (Late st Contact Info) Description 08/28/2018 Scanned Document [facility] [place] [address] [place] [address] External, Provider Social History Tobacco Use Types [...] filedocumented in this encounter Care Teams Patient Relations Director Relationship Specialty Start Date End Date Cindy Tapia DNP PCP - General 05/03/17 08/28/22 documented as of this encounter
--- OUTSIDE RECORDS SUMMARY | 2025-02-03 16:50 | XMS_ITS | Encounter Summary ---
Author Organization [facility] Address [address] [place] [address] Care Team Providers Care Chef Name Role Phone Cindy Tapia DNP Primary Care Provider [phone] Encounter Details Date Type Department Care Team (Late st Contact Info) Description 09/25/2021 Scanned Document [facility] [place] [address] [place] [address] External, Provider Social History Tobacco Use Types [...] documented as of this encounter Care Teams Chef Relationship Specialty Start Date End Date Cindy Tapia DNP PCP - General 05/03/17 08/28/22 documented as of this encounter
--- OUTSIDE RECORDS SUMMARY | 2025-02-03 16:50 | XMS_ITS | Encounter Summary ---
Author Organization [facility] Address [address] [place] [address] Care Team Providers Care Cotton Stripper Name Role Phone Cindy Tapia DNP Primary Care Provider [phone] Encounter Details Date Type Department Care Team (Late st Contact Info) Description 10/19/2021 Scanned Document [facility] [place] [address] [place] [address] External, Provider Social History Tobacco Use Types [...] documented as of this encounter Care Teams Cotton Stripper Relationship Specialty Start Date End Date Cindy Tapia DNP PCP - General 05/03/17 08/28/22 documented as of this encounter
--- OUTSIDE RECORDS SUMMARY | 2025-02-03 16:50 | XMS_ITS | Clinical Summary ---
Author Organization [facility] Address [address] [place] [address] Care Team Providers Care Brim Stretcher Name Role Phone Anette Parham APRN Unavailable [phone] Tho Mirza MD Unavailable [phone] Keely Zelaya APRN Primary Care Provider [phone] [facility] Department Of Women's Unava ilable Unavailable Allergies Active Allergy Reactions Criticality Noted Date Comments Amoxicillin Rash/Dermatitis Low 02/24/2009 Dicyclomine Itching,Hives Medium 09/08/2018 Penicillins Nausea And Vomiting,Rash/Dermatitis Low 02/24/2009 Propafenone Rash/Dermatitis Low 07/17/2017 Pt denies reaction/allergy to this med Medications b complex vitamins capsule Take 1 capsule by mouth daily. Active ondansetron (ZOFRAN-ODT) 4 MG disintegrating tabletIndications:N ausea TAKE 2 TABLET BY MOUTH THREE TIMES DAILY NEEDED FOR NAUSEA OR VOMITING, PLACE TABLET ON TONGUE TO DISSOLVE 90 tablet 2 Active oxyCODONE (ROXICODONE) 5 MG immediate release tablet Take 0.5-1 tablets (2.5-5 mg total) by mouth every 4 (four) hours as needed for moderate pain. Max Daily Amount: 30 mg 10 tablet 3 Active propranolol (INDERAL) 10 MG tabletIndications:P OTS (postural orthostatic tachycardia syndrome) Take 1 tablet (10 mg total) by mouth 3 (three) times a day. 90 tablet 3 3 Active polyethylene glycol (miraLAx) 17 g packet Take 1 packet (17 g total) by mouth daily. 14 packet 3 Active acetaminophen (TYLENOL) 500 MG tablet Take 2 tablets (1,000 mg total) by mouth 3 times daily (every 8 hours) as needed for mild pain (pain). 20 tablet 3 Active ibuprofen (MOTRIN) 600 MG tablet Take 1 tablet (600 mg total) by mouth 3 (three) times a day as needed for mild pain (pain). 20 tablet 3 Active Active Problems Problem Noted Date Diagnosed Date Ovarian torsion 07/28/2023 Panic disorder 06/15/2021 POTS (postural orthostatic tachycardia syndrome) 05/08/2021 Migraine 09/12/2020 Lumbosacral pain 08/07/2019 Dysphagia 09/18/2018 Epigastric pain 09/18/2018 Postural lightheadedness 09/18/2018 Gastroesophageal reflux disease 05/03/2017 Overview (10/10/2020): Update July 2020 by IMO Diana (diagnosis update) Anxiety 04/21/2014 Kidney scarring 10/09/2012 Overview (06/15/2021): Overview: Left Left UTI (urinary tract infection) 10/09/2012 Overview (06/15/2021): Overview: frequent frequent Generalized anxiety disorder 11/10/2004 Immunizations Immunization Administration Dates Next Due Covid-19 mRNA Primary [...] more drinks on one occasion? Never 07/29/2023 Comments No Sex and Gender Information Value [...] Additional history exists COVID-19 Vaccine ( - 2023- season) 2024 09/29/2021, 11/25/2020, 10/26/2020 DTaP/Tdap/Td Vaccines [...] Date/Time Associated Diagnosis Comments THINPREP PAP TEST (BIOMECHANICAL ENGINEER) WITH HPV REFLEX, GC/CT Routine 04/11/2022 3:59 PM EDT from Last 3 Months or Most Recently Relevant to Health Maintenance Results * ThinPrep Pap Test (Software Asset Manager) with HPV Reflex, GC/CT (04/11/2022 3:59 PM EDT) Report Report [facility] Comment: Final Gynecological Cytology Report ThinPrep Pap Test with HPV Reflex, GC/Chlamydia SPECIMEN ADEQUACY: SATISFACTORY FOR EVALUATION; ENDOCERVICAL/TRANSFORMATION ZONE COMPONENT PRESENT. INTERPRETATION: NEGATIVE FOR INTRAEPITHELIAL LESION OR MALIGNANCY. Electronically Signed: ??Tho Dwyer CT(ASCP) CLINICAL INFORMATION: LMP: NG Specimen Source: ??Cervix, Endocervix CPT Codes: 08143 ICD Codes: Z01.419 Other 04/11/2022 3:59 PM EDT 04/12/2022 2:01 AM EDT us Talha Zurita MD LAB AMB PATH/CYTO ORDERAB LES Final Result Performing Organization Address City/State/[place] Co de Phone Number [facility] [address] [place], [place] from Last 3 Months or Most Recently Relevant to Health Maintenance Insurance [facility] Advance Directives * Full Code (Latest Code Status on File) Date Activated Date Inactivated Comments 07/28/2023 11:08 PM * Full Code Date Activated Date Inactivated Comments 07/28/2023 10:51 PM 07/28/2023 11:08 PM Care Teams Brim Stretcher Relationship Specialty Start Date End Date Keely Zelaya APRN [address] [place] [address] PCP - General 11/29/22 [facility] Department Of Women's [address] [place] [address] PCP - Family Medicine Obstetrics and Gynecology 07/28/23 Anette Parham APRN Nurse Practitioner Gastroenterology 06/15/21 Tho Mirza MD Refractory Manager Cardiovascular Disease 06/15/21
--- OUTSIDE RECORDS SUMMARY | 2025-02-03 16:50 | XMS_ITS | Encounter Summary ---
Author Organization [facility] Address [address] [place] [address] Care Team Providers Care Rheumatologist Name Role Phone Cindy Tapia DNP Primary Care Provider [phone] Encounter Details Date Type Department Care Team (Late st Contact Info) Description 06/05/2017 Scanned Document [facility] [place] [address] [place] [address] External, Provider Social History Tobacco Use Types [...] on filedocumented in this encounter Care Teams Rheumatologist Relationship Specialty Start Date End Date Cindy Tapia DNP PCP - General 05/03/17 08/28/22 documented as of this encounter
--- OUTSIDE RECORDS SUMMARY | 2025-02-03 16:50 | XMS_ITS | Encounter Summary ---
Author Organization [facility] Address [address] [place] [address] Care Team Providers Care Supervisor Of Officials Name Role Phone Cindy Tapia DNP Primary Care Provider Encounter Details Date Type Department Care Team (Late st Contact Info) Description 07/13/2022 Scanned Document [facility] [place] [address] [place] [address] External, Provider Social History Tobacco Use Types [...] documented as of this encounter Care Teams Supervisor Of Officials Relationship Specialty Start Date End Date Cindy Tapia DNP PCP - General 05/03/17 08/28/22 documented as of this encounter
--- OUTSIDE RECORDS SUMMARY | 2025-02-03 16:50 | XMS_ITS | Encounter Summary ---
Author Organization [facility] Address [address] [place] [address] Care Team Providers Care Clay Processing Labourer Name Role Phone Cindy Tapia DNP Primary Care Provider [phone] Encounter Details Date Type Department Care Team (Late st Contact Info) Description 07/25/2018 Scanned Document [facility] [place] [address] [place] [address] External, Provider Social History Tobacco Use Types [...] on filedocumented in this encounter Care Teams Clay Processing Labourer Relationship Specialty Start Date End Date Cindy Tapia DNP PCP - General 05/03/17 08/28/22 documented as of this encounter
--- OUTSIDE RECORDS SUMMARY | 2025-02-03 16:50 | XMS_ITS | Encounter Summary ---
Author Organization [facility] Address [address] [place] [address] Care Team Providers Care Tailer Out Name Role Phone Cidny Tapia DNP Primary Care Provider [phone] Encounter Details Date Type Department Care Team (Late st Contact Info) Description 05/22/2017 Scanned Document [facility] [place] [address] [place] [address] Randee Rodarte MD [address] [place] [address] Social History Tobacco Use Types [...] on filedocumented in this encounter Care Teams Tailer Out Relationship Specialty Start Date End Date Cindy Tapia DNP PCP - General 05/03/17 08/28/22 documented as of this encounter
--- OUTSIDE RECORDS SUMMARY | 2025-02-03 16:50 | XMS_ITS | Encounter Summary ---
Author Organization [facility] Address [address] [place] [address] Care Team Providers Care Research Methodologist Name Role Phone Randee Rodarte MD Primary Care Provider [phone] Randee Rodarte MD Unavailable [phone] Encounter Details Date Type Department Care Team (Late st Contact Info) Description 08/01/2012 Orders Only [facility] [address] [place] [address] Social History Tobacco Use Types Packs/Day Years [...] days, until mom can speak with Dr. Ramierz PLAN ? OTHER ALPRAZolam 0.25 MG TABS, [...] on filedocumented in this encounter Care Teams Research Methodologist Relationship Specialty Start Date End Date Randee Rodarte MD [address] [place] [address] PCP - General 05/27/23 Randee Rodarte MD [address] [place] [address] PCP - Backup PCP Pediatrics 11/21/23 documented as of this encounter
--- OUTSIDE RECORDS SUMMARY | 2025-02-03 16:50 | XMS_ITS | Encounter Summary ---
Author Organization [facility] Address [address] [place] [address] Care Team Providers Care Data Center Consultant Name Role Phone Cindy Tapia MALDONADO Primary Care Provider [phone] Encounter Details Date Type Department Care Team (Late st Contact Info) Description 10/29/2017 Transcribed Orders Employee Health [address] [place] [phone] Iesha Ludwig MD [address] [place] [phone] (Work) Physical exam, pre-employment [...] IgG Positive Positive 10/29/2017 2:51 PM EST [facility] Mumps Antibody, IgG Interval 3.44 >=0.50 10/29/2017 2:51 PM EST [facility] Blood specimen (specimen) Venipuncture / Unknown 10/29/2017 9:10 AM EST 10/29/2017 12:59 PM EST [facility] LABORATORY - 10/29/2017 2:51 PM EST Reference [...] Ludwig MD LAB BLOOD ORDERABLES Final Result [facility] [address] [place] [address] * Varicella zoster antibody, IgG (10/29/2017 9:10 AM EST) Varicella Zoster Antibody, IgG Numeric 750 >165 IV 10/29/2017 3:20 PM EST [facility] Varicella Zoster Antibody, IgG Positive Positive 10/29/2017 3:20 PM EST [facility] Comment: Reference Interval Interpretation: ? < 135 [...] Ludwig MD LAB BLOOD ORDERABLES Final Result [facility] [address] [place] [address] * Rubella antibody, IgG (BH GH L LMW YH) (10/29/2017 9:10 AM EST) Rubella Antibody, IgG Positive Positive 10/29/2017 2:20 PM EST [facility] Rubella Antibody, IgG Interval 77.3 >=10.0 Index 10/29/2017 2:20 PM EST [facility] Blood specimen (specimen) Venipuncture / Unknown 10/29/2017 9:10 AM EST 10/29/2017 12:59 PM EST Narrative [facility] - 10/29/2017 2:20 PM EST [...] Ludwig MD LAB BLOOD ORDERABLES Final Result [facility] [address] [place] [address] * Measles (Rubeola) antibody, IgG (10/29/2017 9:10 AM EST) Pathologist [facility] Measles IgG Initial Result >300.0 >=30.0 AU/mL 10/29/2017 3:20 PM EST [facility] Measles IgG Positive Positive 10/29/2017 3:20 PM EST [facility] Comment: Reference Interval Interpretation: ? [...] LAB BLOOD ORDERABLES Final Result [facility] [address] [place] [address] documented in this encounter Visit Diagnoses Diagnosis Physical exam, pre-employment- Primary Health examination of defined subpopulation documented in this encounter Care Teams Data Center Consultant Relationship Specialty Start Date End Date Cindy Tapia DNP PCP - General 05/03/17 08/28/22 documented as of this encounter
--- OUTSIDE RECORDS SUMMARY | 2025-02-03 16:50 | XMS_ITS | Encounter Summary ---
Author Organization [facility] Address [address] [place] [address] Care Team Providers Care Template Worker Name Role Phone Thuan Hernandez MD Primary Care Provider Cindy Tapia APRN Primary Care Provider Anette Parham SANDSTONE SPLITTER Unavailable Tho Mirza MD Unavailable Antione Pickett SANDSTONE SPLITTER Unavailable [phone] Keely Zelaya APRN Primary Care Provider Replaced By [facility] Unavailable Encounter Details Date Type Department Care Team (Late st Contact Info) Description 10/10/2016 Scanned Document [address] [phone] Provider, MD Sa[address] [place] [address] Social History Tobacco Use Types Packs/Day Years [...] on filedocumented in this encounter Care Teams Template Worker Relationship Specialty Start Date End Date Thuan Hernandez MD [address] [place] [address] PCP - General 07/17/17 10/05/18 Cindy Tapia, SANDSTONE SPLITTER [address] [place] [address] PCP - General Family Medicine 10/06/18 11/28/22 Keely Zelaya APRN [address] [place], [place] [id number] PCP - General 11/29/22 [facility] [address] [place] [address] PCP - Family Medicine Obstetrics and Gynecology 07/28/23 Anette Parham, SANDSTONE SPLITTER [address] [place] [address] Nurse Practitioner Gastroenterology 06/15/21 Tho Mirza MD [address] [place] [address] Printed Circuit Board Drafter Cardiovascular Disease 06/15/21 Atnione Pickett, [place] [address] Neurology Neurology 09/25/21 07/28/23 documented as of this encounter
--- OUTSIDE RECORDS SUMMARY | 2025-02-03 16:50 | XMS_ITS | Encounter Summary ---
Author Organization [facility] Address [address] [place] [address] Care Team Providers Care Health Communications Specialist Name Role Phone Cindy Tapia APRN Primary Care Provider Anette Parham PEST CONTROL SUPERVISOR Unavailable [phone] Tho Mirza MD Unavailable Antione Pickett PEST CONTROL SUPERVISOR Unavailable Keely Zelaya APRN Primary Care Provider [phone] [facility] Unavailable Encounter Details Date Type Department Care Team (Late st Contact Info) Description 08/14/2021 Scanned Document [facility] Neurology [place] [address] [place] [address] [place] [address] Social History Tobacco Use Types Packs/Day Years [...] on filedocumented in this encounter Care Teams Health Communications Specialist Relationship Specialty Start Date End Date Cindy Tapia APRN PCP - General Family Medicine 10/06/18 11/28/22 Keely Zelaya APRN [address] [place] [address] PCP - General 11/29/22 [facility] [address] [place] [address] PCP - Family Medicine Obstetrics and Gynecology 07/28/23 Anette Parham APRN Nurse Practitioner Gastroenterology 06/15/21 Tho Mirza MD Medical Planner Cardiovascular Disease 06/15/21 [place] [address] Neurology Neurology 09/25/21 07/28/23 documented as of this encounter
--- OUTSIDE RECORDS SUMMARY | 2025-02-03 16:50 | XMS_ITS | Encounter Summary ---
Author Organization [facility] Address [address] [place] [address] Care Team Providers Care Renal Dialysis Rn Name Role Phone Cindy Tapia DNP Primary Care Provider [phone] Encounter Details Date Type Department Care Team (Late st Contact Info) Description 08/05/2018 Scanned Document [facility] [place] [address] [place] [address] External, Provider Social History Tobacco Use Types [...] on filedocumented in this encounter Care Teams Renal Dialysis Rn Relationship Specialty Start Date End Date Cindy Tapia DNP PCP - General 05/03/17 08/28/22 documented as of this encounter
--- OUTSIDE RECORDS SUMMARY | 2025-02-03 16:50 | XMS_ITS | Encounter Summary ---
Author Organization [facility] Address [address] [place] [address] Care Team Providers Care Flight Readiness Technician Name Role Phone Cindy Tapia DNP Primary Care Provider [phone] Encounter Details Date Type Department Care Team (Late st Contact Info) Description 05/19/2018 Scanned Document [facility] [place] [address] [place] [address] Cindy Tapia DNP [address] [phone] Social History Tobacco Use Types Packs/Day Years [...] on filedocumented in this encounter Care Teams Flight Readiness Technician Relationship Specialty Start Date End Date Cindy Tapia DNP PCP - General 05/03/17 08/28/22 documented as of this encounter
--- OUTSIDE RECORDS SUMMARY | 2025-02-03 16:50 | XMS_ITS | Encounter Summary ---
Author Organization [facility] Address [address] [place] [address] Care Team Providers Care Cheese Tester Name Role Phone Cindy Tapia DNP Primary Care Provider [phone] Encounter Details Date Type Department Care Team (Late st Contact Info) Description 06/04/2017 Scanned Document [facility] [place] [address] [place] [address] Cindy Tapia DNP [address] [phone] Social History Tobacco Use Types Packs/Day Years [...] on filedocumented in this encounter Care Teams Cheese Tester Relationship Specialty Start Date End Date Cindy Tapia DNP PCP - General 05/03/17 08/28/22 documented as of this encounter
== END 2025-02-03 14:47 | disposition home or self-care (01) ==
LOC: HO.HWS 14:04
PROVIDERS: PCP Registered Nurse; Visit Provider Advanced Practice Midwife
DX: Z34.90 Encounter for supervision of normal pregnancy, unspecified, unspecified trimester (principal)
CPT/HCPCS: 25942

== ENCOUNTER → 2025-02-03 14:04 | Outpatient (BNVA) | payer OTHER, SELFPAY | PROVIDERS: PCP Registered Nurse; Visit Provider Advanced Practice Midwife | DX: O99.343 Other mental disorders complicating pregnancy, third trimester (principal); O26.893 Other specified pregnancy related conditions, third trimester; F41.9 Anxiety disorder, unspecified; G90.A Postural orthostatic tachycardia syndrome [POTS]; Z3A.35 35 weeks gestation of pregnancy; Z87.440 Personal history of urinary (tract) infections | CPT/HCPCS: 81003 ==

== ENCOUNTER 2025-02-10 12:00 | Outpatient (RCR) | payer OTHER, SELFPAY ==
[2025-01-05 12:41] VITALS: BP 109/72; PULSE 99; RESP 20; TEMP 36.4; O2SAT 100
[2025-01-05] MEDS: Iron Sucrose Complex 200 MG/10 ML VIAL IVPUSH (12:51)
[2025-01-12 13:11] VITALS: BP 101/63; PULSE 90; RESP 16; TEMP 36.3; O2SAT 100
[2025-01-18 14:05] VITALS: BP 106/66; PULSE 102; RESP 20; TEMP 36.9; O2SAT 96
[2025-01-18] MEDS: Iron Sucrose Complex 200 MG 110 MG IV (14:10)
[2025-01-26 11:56] VITALS: BP 107/64; PULSE 96; RESP 18; TEMP 36.9; O2SAT 98
[2025-01-26] MEDS: Iron Sucrose Complex 200 MG 110 MG IV (12:02)
[2025-01-26] MEDS: 0.9 % Sodium Chloride Flush 10 ML SYRINGE 5 ML IVFLUSH (13:00)
[2025-02-04 14:55] VITALS: BP 99/65; PULSE 99; RESP 16; TEMP 36.8; O2SAT 97
[2025-02-04] MEDS: Iron Sucrose Complex 200 MG 440 MG IV (15:02)
[2025-02-10 11:59] VITALS: BP 108/68; PULSE 98; RESP 18; TEMP 37.1; O2SAT 96
[2025-02-10] MEDS: Iron Sucrose Complex 200 MG 220 MG IV (12:05)
== END 2025-02-10 13:37 | disposition home or self-care (01) ==
LOC: HO.INF 12:00
PROVIDERS: Visit Provider Internal Medicine
DX: O99.019 Anemia complicating pregnancy, unspecified trimester (principal)
CPT/HCPCS: 96365; 96374; J1756